=== PATIENT | female | born 1960 | race African-American/Black ===

== ENCOUNTER 2021-03-06 10:19 | Outpatient (REF) | payer OTHER, SELFPAY ==
[2021-03-06 10:53] LABS: Hematocrit 38.1 % (37-47); Hemoglobin 12.1 g/dl (12.0-16.0); Mean Corpuscular HGB Conc 31.8 g/dl (31.0-35.0); Mean Corpuscular Hemoglobin 26.7 pg (27.0-33.0); Mean Corpuscular Volume 84.1 fL (80-98); Mean Platelet Volume 11.6 fL (9.4-12.3); Platelet Count 307 X10*3/uL (160-400); Red Blood Count 4.53 X10*6/uL (4.20-5.50); Red Cell Distribution Width 15.9 % (11.0-16.0); White Blood Count 8.4 X10*3/uL (4.8-10.8)
[2021-03-06 11:11] LABS: D Dimer 219 NG/ML
[2021-03-06 11:34] LABS: Erythrocyte Sedimentation Rate 38 MM/HR (0-20)
[2021-03-06 11:37] LABS: Anion Gap 16 (12-20); Blood Urea Nitrogen 12 mg/dL (9-16); C Reactive Protein 1.71 mg/dL (< or = 0.50); Calcium 9.7 mg/dL (8.4-10.2); Carbon Dioxide 24 mmol/L (22-29); Chloride 107 mmol/L (96-108); Estimated Glomerular Filt Rate 49; Glucose Random 110 mg/dL (60-115); Potassium 3.7 mmol/L (3.3-5.1); Sodium 143 mmol/L (135-145)
== END 2021-03-06 10:20 | disposition home or self-care (01) ==
LOC: HO.LAB 10:19
PROVIDERS: Visit Provider Internal Medicine
DX: M79.89 Other specified soft tissue disorders (principal)
CPT/HCPCS: 36415; 80048; 85027; 85379; 85652; 86140

== ENCOUNTER 2021-05-28 08:44 | Outpatient (REF) | payer OTHER, SELFPAY ==
--- NOTE | ~2021-05-28 | MM_ITS ---
EXAMINATION: MM SCREENING DIGITAL BREAST TOMOSYNTHESIS, BILATERAL CLINICAL INFORMATION: Screening. Asymptomatic. The lifetime risk of breast cancer based on the Tyrer-Cuzick Model is 8%. COMPARISON: Mammography: 05/24/2020, 03/08/2019 TECHNIQUE: Digital breast tomosynthesis is performed in both the craniocaudal and mediolateral oblique views along with computer-aided detection (CAD). Synthesized 2D images are generated from the tomosynthesis. Additional views are provided: Bilateral CC x2, left MLO x2, right MLO. FINDINGS: The breasts are almost entirely fatty (ACR BI-RADS breast composition Category a). Background stromal and fibroglandular densities are stable. No developing density or interval mass or architectural abnormality. There are some round loosely grouped calcifications posterior inferior medial right breast corresponding to the skin. Neither breast shows suspicious calcifications. The axilla and skin contours are unremarkable. MM/MM tomosynthesis screening BI IMPRESSION: No mammographic evidence of malignancy. ASSESSMENT: BI-RADS 2: Benign RECOMMENDATION: Routine annual mammography screening. This patient's information was entered into a reminder system with a target due date for their next mammogram.
== END 2021-05-28 08:45 | disposition home or self-care (01) ==
LOC: HO.MAMMO 08:44
PROVIDERS: PCP Internal Medicine; Visit Provider Internal Medicine
DX: Z12.31 Encounter for screening mammogram for malignant neoplasm of breast (principal)
CPT/HCPCS: 77063; 77067

== ENCOUNTER 2022-05-29 08:35 | Outpatient (REF) | payer OTHER, SELFPAY ==
--- NOTE | ~2022-05-29 | MM_ITS ---
EXAMINATION: MM SCREENING DIGITAL BREAST TOMOSYNTHESIS, BILATERAL CLINICAL INFORMATION: Screening. Asymptomatic. The lifetime risk of breast cancer based on the Tyrer-Cuzick Model is 9%. COMPARISON: Mammography: 05/28/2021, 05/24/2020, 03/08/2019 TECHNIQUE: Digital breast tomosynthesis is performed in both the craniocaudal and mediolateral oblique views along with computer-aided detection (CAD). Synthesized 2D images are generated from the tomosynthesis. Additional bilateral CC and bilateral MLO views are provided. FINDINGS: The breasts are almost entirely fatty (ACR BI-RADS breast composition Category a). There are no significant masses, abnormal calcifications, or other abnormalities. Parenchymal pattern is similar to prior studies. There is no developing density or architectural abnormality. The axilla and skin contours are unremarkable. No significant changes. MM/MM tomosynthesis screening BI IMPRESSION: No mammographic evidence of malignancy. ASSESSMENT: BI-RADS 1: Negative RECOMMENDATION: Routine annual mammography screening. This patient's information was entered into a reminder system with a target due date for their next mammogram.
== END 2022-05-29 08:36 | disposition home or self-care (01) ==
LOC: HO.MAMMO 08:35
PROVIDERS: Visit Provider Internal Medicine
DX: Z12.31 Encounter for screening mammogram for malignant neoplasm of breast (principal)
CPT/HCPCS: 77063; 77067

== ENCOUNTER → 2022-12-22 07:42 | Outpatient (BNVA) | payer OTHER, SELFPAY | PROVIDERS: PCP Internal Medicine; Visit Provider Physician Assistant | DX: Z12.11 Encounter for screening for malignant neoplasm of colon (principal); K21.9 Gastro-esophageal reflux disease without esophagitis | CPT/HCPCS: 99202 ==

== ENCOUNTER 2023-02-10 13:07 | Outpatient (REF) | payer OTHER, SELFPAY ==
--- NOTE | ~2023-02-10 | US_ITS ---
EXAMINATION: US SOFT TISSUE HEAD/NECK CLINICAL INFORMATION: Lymphadenopathy, cervical spine. COMPARISON: None available. TECHNIQUE: Linear transducer grayscale and color Doppler examination of the right and left submandibular regions. FINDINGS: There are 2 right cervical lymph nodes adjacent to the right submandibular gland. These are normal in size measuring 6 x 8 x 5 mm and 3 x 8 x 4 mm. These have normal ultrasound morphology and normal hilar flow. There are 2 left cervical lymph nodes adjacent to the left submandibular gland. These are normal in size. There is an 8 x 7 x 6 mm lymph node with hypoechoic cortex and slightly irregular borders. There is a 7 x 9 x 6 mm lymph node that is diffusely hypoechoic with a slit-like hilum. US/US soft tiss head and/or neck IMPRESSION: Bilateral cervical lymphadenopathy adjacent to the submandibular glands. Lymph nodes are normal in size. Left submandibular lymph nodes have slightly abnormal ultrasound morphology. Ultrasound follow-up recommended. Right cervical lymph nodes are normal-appearing.
== END 2023-02-10 13:08 | disposition home or self-care (01) ==
LOC: HO.US 13:07
PROVIDERS: PCP Internal Medicine; Visit Provider Family Medicine
DX: R59.0 Localized enlarged lymph nodes (principal)
CPT/HCPCS: 76536

== ENCOUNTER 2023-04-30 09:40 | Outpatient (REF) | payer OTHER, SELFPAY ==
--- NOTE | ~2023-04-30 | XR_ITS ---
EXAMINATION: XR SINUSES CLINICAL INFORMATION: Sinus pressure. COMPARISON: None available. TECHNIQUE: 3 views of the sinuses were obtained. FINDINGS: Mild mucosal thickening is seen in the left maxillary sinus. The remainder the paranasal sinuses appear clear. No overt air-fluid levels. The osseous structures are unremarkable. The soft tissues are unremarkable. XR/XR sinus min 3V IMPRESSION: Mild mucosal thickening in the left maxillary sinus.
== END 2023-04-30 09:41 | disposition home or self-care (01) ==
LOC: HO.XRAY 09:40
PROVIDERS: PCP Internal Medicine; Visit Provider Otolaryngology
DX: J01.91 Acute recurrent sinusitis, unspecified (principal)
CPT/HCPCS: 70220

== ENCOUNTER 2023-06-01 08:20 | Outpatient (REF) | payer OTHER, SELFPAY ==
--- NOTE | ~2023-06-01 | MM_ITS ---
EXAMINATION: MM SCREENING DIGITAL BREAST TOMOSYNTHESIS, BILATERAL CLINICAL INFORMATION: Screening. Asymptomatic. The lifetime risk of breast cancer based on the Tyrer-Cuzick Model is 6.3%. COMPARISON: Mammography: This study is compared with prior exams dating back to 2018. TECHNIQUE: Digital breast tomosynthesis is performed in both the craniocaudal and mediolateral oblique views along with computer-aided detection (CAD). Synthesized 2D images are generated from the tomosynthesis. FINDINGS: The breasts are almost entirely fatty (ACR BI-RADS breast composition Category a). There are no significant masses, abnormal calcifications, or other abnormalities. MM/MM tomosynthesis screening BI IMPRESSION: No mammographic evidence of malignancy. ASSESSMENT: BI-RADS BI-RADS 1 - Negative RECOMMENDATION: Routine annual mammography screening. 1 year F/U This examination should not preclude the clinical evaluation of a suspicious palpable abnormality. This patient's information was entered into a reminder system with a target due date for their next mammogram.
== END 2023-06-01 08:21 | disposition home or self-care (01) ==
LOC: HO.MAMMO 08:20
PROVIDERS: PCP Internal Medicine; Visit Provider Internal Medicine
DX: Z12.31 Encounter for screening mammogram for malignant neoplasm of breast (principal)
CPT/HCPCS: 77063; 77067

== ENCOUNTER → 2023-06-01 09:00 | Outpatient (BNV) | payer OTHER, SELFPAY | PROVIDERS: PCP Internal Medicine; Visit Provider Radiology Diagnostic Radiology | DX: Z12.31 Encounter for screening mammogram for malignant neoplasm of breast (principal) | CPT/HCPCS: 77063; 77067 ==

== ENCOUNTER 2023-06-09 10:43 | Day surgery (SDC) | payer OTHER, SELFPAY ==
[2023-06-05 17:14] VITALS: BMI 54.9
--- NOTE | 2023-06-08 12:28 | HO.ANESPROP2 ---
Documented by User: Rochelle Wang NP 06/08/23 12:29 HPI - Anesthesia Eval Consult details Narrative: 63yo F for Upper Endoscopy and Colonoscopy PMFSH Active Problems Active Problems: All Active Problems (Updated 12/22/22 @ 08:23 by Diana Kennedy PA-C) Diabetes (Acute) Acid reflux (Acute) Encounter for screening colonoscopy (Acute) Past Medical History Medical History (Updated 06/09/23 @ 11:18 by Tonya Fuller, RN) HTN (hypertension) Hx of backache Hx of gout Hx of hyperlipidemia Kidney atrophy Family History Family History (Updated 12/22/22 @ 08:08 by Kristyn Porras) Brother Diabetes Son Diabetes Sister Diabetes Surgical History Surgical History (Updated 06/09/23 @ 11:14 by Tonya Fuller RN) History of back surgery History of sleeve gastrectomy Hx of colonoscopy Social History Social History (Updated 12/22/22 @ 08:04 by Kristyn Porras) Household Members: Family Alcohol intake: current Alcohol intake frequency: does not drink Patient Tobacco Use Status: Never used Tobacco Are you DNR?: No Advance Directives: No Advance Directives Information Provided: Yes Meds Allergies Allergy/AdvReac Type Severity Reaction Status Date / Time celecoxib [From Celebrex] Allergy Severe Hives Verified 12/22/22 08:25 levofloxacin [From Levaquin] Allergy Severe Hives Verified 12/22/22 08:25 morphine Allergy Severe Hives Verified 12/22/22 08:25 Home Medications Medication Instructions Recorded Confirmed Last Taken Type allopurinol 300 mg tablet 300 mg PO DAILY 12/22/22 Unknown History amlodipine 10 mg tablet 10 mg PO DAILY 12/22/22 Unknown History insulin aspar prot-insulin aspart 20 unit subcut DAILY 12/22/22 Unknown History 100 unit/mL (70-30) subcutaneous pen (Novolog Mix 70-30FlexPen U-100) insulin glargine 100 unit/mL 20 unit subcut DAILY 12/22/22 Unknown History subcutaneous solution (Lantus U-100 Insulin) metoprolol succinate 100 mg 100 mg PO DAILY 12/22/22 06/09/23 History tablet,extended release 24 hr omeprazole 20 mg capsule,delayed 20 mg PO DAILY 12/22/22 06/09/23 History release simvastatin 10 mg tablet 10 mg PO BEDTIME 12/22/22 Unknown History Exam Exam Date and Time: June 08, 2023 1228 Height,Weight and Vital Signs: Height 5 ft 2 in Weight 136.078 kg Assessment and Plan Assessment Anesthesia Assessment: Chart Reviewed Documented by User: Ankit Parker MD 06/09/23 11:41 [facility] Past Medical History Medical History (Updated 06/09/23 @ 11:18 by Tonya Fuller RN) HTN (hypertension) Hx of backache Hx of gout Hx of hyperlipidemia Kidney atrophy Family History Family History (Updated 12/22/22 @ 08:08 by Kristyn Porras) Brother Diabetes Son Diabetes Sister Diabetes Family history of problems with anesthesia: No Surgical History Surgical History (Updated 06/09/23 @ 11:14 by Tonya Fuller RN) History of back surgery History of sleeve gastrectomy Hx of colonoscopy History of Problems with Anesthesia: No Social History Social History (Updated 12/22/22 @ 08:04 by Kristyn Porras) Household Members: Family Alcohol intake: current Alcohol intake frequency: does not drink Patient Tobacco Use Status: Never used Tobacco Are you DNR?: No Advance Directives: No Advance Directives Information Provided: Yes Meds Allergies Allergy/AdvReac Type Severity Reaction Status Date / Time celecoxib [From Celebrex] Allergy Severe Hives Verified 12/22/22 08:25 levofloxacin [From Levaquin] Allergy Severe Hives Verified 12/22/22 08:25 morphine Allergy Severe Hives Verified 12/22/22 08:25 Home Medications Medication Instructions Recorded Confirmed Last Taken Type allopurinol 300 mg tablet 300 mg PO DAILY 12/22/22 Unknown History amlodipine 10 mg tablet 10 mg PO DAILY 12/22/22 Unknown History insulin aspar prot-insulin aspart 20 unit subcut DAILY 12/22/22 Unknown History 100 unit/mL (70-30) subcutaneous pen (Novolog Mix 70-30FlexPen U-100) insulin glargine 100 unit/mL 20 unit subcut DAILY 12/22/22 Unknown History subcutaneous solution (Lantus U-100 Insulin) metoprolol succinate 100 mg 100 mg PO DAILY 12/22/22 06/09/23 History tablet,extended release 24 hr omeprazole 20 mg capsule,delayed 20 mg PO DAILY 12/22/22 06/09/23 History release simvastatin 10 mg tablet 10 mg PO BEDTIME 12/22/22 Unknown History Exam Airway Mallampati Class: III TM Dist: <=3cm Neck ROM: Limited Heart: rrr Lungs: cta Assessment and Plan Assessment Anesthesia Assessment: Anesthesia Plan Discussed Final Anesthetic Review Family History of Problems with Anesthesia: No History of Problems with Anesthesia: No NPO: Yes ASA Class: IV Final Preanesthetic Review: No Changes in Pt Med Stat, Meds/Allgs Chart Reviewed, Consent Obtained/Reviewed and Anes Risks/Benef Reviewed Patient Risk: High Procedure Risk: Intermediate Anesthetic Plan Anesthetic Plan: MAC: and Agree w/ Assess. and Plan Disposition: Standard PACU
[2023-06-09 11:12] LABS: Glucose, Whole Blood 145 mg/dL (60-115)
[2023-06-09 11:24] VITALS: BP 129/69; PULSE 76; RESP 20; TEMP 36.8; O2SAT 99
--- NOTE | 2023-06-09 11:36 | MHC.SHP ---
Pre-Procedural Eval Section A Date of Service: 06/09/23 Section B Chief Complaint: Screening,GERD Details of Present Illness: PMH: solitary kidney Present Medications: see Short Stay Collaborative assessment History of Previous Operations: No relevant previous surgery Allergies: Allergies Allergy/AdvReac Type Severity Reaction Status Date / Time celecoxib [From Celebrex] Allergy Severe Hives Verified 12/22/22 08:25 levofloxacin [From Levaquin] Allergy Severe Hives Verified 12/22/22 08:25 morphine Allergy Severe Hives Verified 12/22/22 08:25 Review of Systems Review of Systems Comment: 10 point ROS negative Exam Exam Comment: Gen appear: No acute distress HEENT: no icterus Chest: No overt resp distress Abd: soft, nontender, nondistended Psych: Stable affect, answering questions appropriately Neuro: A/Ox3 noted to move all extremities spontaneously Ext: no peripheral edema Plan Diagnosis/Plan: Unchanged I have reviewed the history and physical and performed a pertinent physical examination on my patient. No changes have occurred unless specified. Time Spent With Patient Time: Total time managing care of this patient today ____ minutes.
--- NOTE | 2023-06-09 13:43 | P.OP_ITS ---
Operative Note Operative Note Date of Service: 06/09/23 Narrative: Procedure:?Esophagogastroduodenoscopy and colonoscopy Endoscopist:?Jana Jade MD Indication:?GERD, screening Anesthesia Provider:?Elmira Carbajal CRNA Anesthesia Type:?MAC Instrument:?Olympus GIF-H190, PCF-H190L EGD Procedure:?? The procedure, indications, preparation and potential complications were reviewed with the patient, who indicated understanding and gave written informed consent to proceed. A physical exam was performed. The endoscope was introduced through the mouth, and advanced to the second part of duodenum. The mucosa was carefully examined on slow withdrawal of the endoscope.? There were no immediate complications.? Patient tolerated the procedure well. EGD Findings:? * Esophagus:? Normal mucosa noted in the entire esophagus.? The Z-line is at 38 cm. ? A large hiatal hernia was noted with the diaphragmatic pinch at 45 cm. ? * Stomach:? Normal gastric mucosa. Retroflexion was performed in the fundus that showed Hill grade III hiatal hernia. Random cold forceps biopsies were taken to rule out H pylori. * Duodenum:?Erythema and edema the duodenal sweep was noted consistent with peptic duodenitis.? Cold forceps biopsies were taken for histology. Colonoscopy Procedure:? The patient was then turned for the colonoscopy. A digital rectal exam was performed which was normal.? A distal attachment cap was affixed to the tip of the scope and the colonoscope was then inserted through the anus and advanced through the colon to the cecum at 85 cm. Appendiceal orifice and ileocecal valve were identified. Mucosa was carefully examined under high definition white light as the instrument was slowly withdrawn in a retrograde panoramic fashion. Retroflexion was performed in rectum. The procedure was not difficult. There were no immediate obvious complications. The quality of the prep was BBPS: 2+2+2 = adequate Withdrawal time: 17 minutes Limitations: No limitation. Findings: Mucosa: Normal mucosa to cecum.? Protruding lesions: * A 2 cm subepithelial lesion was noted in the cecum close to ICV. This was unroofed with a cold snare revealed fatty tissue underneath compatible with a lipoma. cold forceps biopsies were taken for histology. * A sessile polyps size 7 mm was seen in the transverse colon. Cold snare polypectomy was performed. The polyp was completely removed and retrieved. * A sessile polyp of size 3 mm was noted in the descending colon. Cold snare polypectomy was performed. The polyp was completely removed and retrieved. * A sessile polyp of size 5 mm was noted in the sigmoid colon. Cold snare polypectomy was performed. Polyp was completely removed and retrieved. * Large internal hemorrhoids without stigmata of recent bleeding. Excavated lesions: * ?Moderate diverticulosis of the left colon with scattered diverticulosis up to ascending colon. Impression: 1. Normal esophageal mucosa 2. Hiatal hernia 4. Normal gastric mucosa 5. Duodenitis (biopsy) 6. Lipoma in cecum 7. Total of 3 polyps were removed from transverse, descending and sigmoid colon. 7. Diverticulosis 8. Internal hemorrhoids Recommendations:?? * Follow path results * Increase omeprazole 20mg BID x 4 weeks and then decrease back to 20mg once daily * Repeat colonoscopy in 3-5 years.
[2023-06-09 13:45] VITALS: BP 107/61; PULSE 67; RESP 16; TEMP 36.6; O2SAT 98
[2023-06-09 14:00] VITALS: BP 138/56; PULSE 61; RESP 16; TEMP 36.6; O2SAT 98
== END 2023-06-09 15:08 | disposition home or self-care (01) ==
PROVIDERS: PCP Internal Medicine; Visit Provider Internal Medicine
PROC: (CPT 45380; principal; 2023-06-09 13:10)
DX: Z12.11 Encounter for screening for malignant neoplasm of colon (principal); D12.3 Benign neoplasm of transverse colon; K63.5 Polyp of colon; K57.30 Diverticulosis of large intestine without perforation or abscess without bleeding; K64.8 Other hemorrhoids; K29.80 Duodenitis without bleeding; K44.9 Diaphragmatic hernia without obstruction or gangrene; K63.9 Disease of intestine, unspecified; K21.9 Gastro-esophageal reflux disease without esophagitis; E11.9 Type 2 diabetes mellitus without complications; I10 Essential (primary) hypertension; E78.5 Hyperlipidemia, unspecified; E66.01 Morbid (severe) obesity due to excess calories; Z68.43 Body mass index [BMI] 50.0-59.9, adult; Z79.4 Long term (current) use of insulin; Z79.899 Other long term (current) drug therapy
CPT/HCPCS: 45380; 45385; 43239; 82947; 88305; 88342

== ENCOUNTER → 2023-06-09 10:43 | Outpatient (BNV) | payer OTHER, SELFPAY | PROVIDERS: PCP Internal Medicine; Visit Provider Internal Medicine | DX: Z12.11 Encounter for screening for malignant neoplasm of colon (principal); D12.3 Benign neoplasm of transverse colon; K21.9 Gastro-esophageal reflux disease without esophagitis; K29.80 Duodenitis without bleeding | CPT/HCPCS: 43239; 45380; 45385 ==

== ENCOUNTER 2023-06-22 10:42 | Outpatient (AMB) | payer OTHER, SELFPAY ==
--- NOTE | 2023-06-22 10:52 | A.OFFVIS_ITS ---
Intake Vital Signs 06/22/23 10:55 Height 5 ft 2 in Weight 289 lb BMI 52.9 BP 120/60 Blood Pressure Location Lt brachial Position Sitting Pulse 87 Intake Visit Reasons: s/p egd/colon-Ziia Intake Note: Patient follow up for EGD/Colonoscopy results. Patient denies any GI issues. Payroll Representative Required: No Accompanied by: Self / Same As Patient Allergies celecoxib [From Celebrex] Allergy (Severe, Verified 06/22/23 10:51) Hives levofloxacin [From Levaquin] Allergy (Severe, Verified 06/22/23 10:51) Hives morphine Allergy (Severe, Verified 06/22/23 10:51) Hives HPI HPI Comments History of Present Illness Details A 63 y/o F- s/p Gastric sleeve - 2 years ago-follows up after recent EGD colonoscopy She tolerated procedure well-she has no GI complaints She has a good appetite trying to lose weight she has a normal bowel No nausea, vomiting, abdominal pain, hematemesis, fever or chills PFSH Medical History (Updated 06/22/23 @ 11:11 by Diana Kennedy PA-C) HTN (hypertension) Hx of backache Hx of gout Hx of hyperlipidemia Kidney atrophy Surgical History History of back surgery History of esophagogastroduodenoscopy (EGD) History of sleeve gastrectomy Hx of colonoscopy Family History Brother Diabetes Son Diabetes Sister Diabetes Social History Household Members: Family Alcohol intake: current Alcohol intake frequency: does not drink Patient Tobacco Use Status: Never used Tobacco Physical Exam Vital Signs: Last Vital Signs Pulse 87 06/22/23 10:55 BP 120/60 06/22/23 10:55 BMI result Body Mass Index 52.9 Results Reviewed Results Reviewed: Findings: Mucosa: Normal mucosa to cecum.? Protruding lesions: * A 2 cm subepithelial lesion was noted in the cecum close to ICV. This was unroofed with a cold snare revealed fatty tissue underneath compatible with a lipoma.? cold forceps biopsies were taken for histology. * A sessile polyps size 7 mm was seen in the transverse colon.? Cold snare polypectomy was performed.? The polyp was completely removed and retrieved.? * A sessile polyp of size 3 mm was noted in the descending colon.? Cold snare polypectomy was performed.? The polyp was completely removed and retrieved.? * A sessile polyp of size 5 mm was noted in the sigmoid colon.? Cold snare polypectomy was performed.? Polyp was completely removed and retrieved. * Large internal hemorrhoids without stigmata of recent bleeding.Excavated lesions: * ?Moderate diverticulosis of the left colon with scattered diverticulosis up to ascending colon. Impression: 1. Normal esophageal mucosa 2. Hiatal hernia 4. Normal gastric mucosa 5. Duodenitis (biopsy) 6. Lipoma in cecum 7. Total of 3 polyps were removed from transverse, descending and sigmoid colon. 7. Diverticulosis 8. Internal hemorrhoids Recommendations:?? * Follow path results * Increase omeprazole 20mg BID x 4 weeks and then decrease back to 20mg once daily * Repeat colonoscopy in 3-5 years. Name:?Yessy Miller Age/Sex: 63/F Attending: Jana Jade MD : 1960 Submitted by: Jana Jade MD Copies to: Vikash Isabel MD MR #: [id number] ? Status: [facility] Collected: 06/09/23 Location: [facility] Received: 06/09/23 Diagnosis A.? Duodenum, biopsy:? Carmina gland hyperplasia; otherwise duodenal mucosa within normal limits. B.? Stomach, random, biopsy:? Antral-type and oxyntic mucosa with mild chronic inactive inflammation; no Helicobacter organisms seen. C.? Colon, transverse, polypectomy:? Fragments of tubular adenoma; negative for high-grade dysplasia or carcinoma. D.? Cecum, near ICV submucosal epithelial lesion, biopsy:? Small fragment of normal appearing adipose tissue.? See comment. E.? Colon, descending, polypectomy:? Hyperplastic mucosal polyp. F.? Colon, sigmoid, polypectomy:? Hyperplastic mucosal polyp. COMMENT:? Findings in part D are consistent with a submucosal lipoma in the proper clinical context. Clinical History Pre-Op Dx:? Screening, GERD Post-Op Dx: Duodenitis,hiatal hernia, diverticulosis, polyps, hemorrhoids Microscopic Description A-F.? Microscopic sections reviewed.? Immunostain for H. pylori is non-reactive (B). Material Received A. Duodenal bx's to r/o peptic duodenitis B. Random gastric bx's C. Transverse colon polyp D. Submucosal epithelial lesion bx E. Descending colon polyp F. Sigmoid colon polyp Gross Description Assessment & Plan Assessment & Plan (1) Tubular adenoma: Code(s): D36.9 - Benign neoplasm, unspecified site (2) Duodenitis: Code(s): K29.80 - Duodenitis without bleeding Plan: Omeprazole 20 mg b.i.d.x4 weeks (3) Hiatal hernia: Code(s): K44.9 - Diaphragmatic hernia without obstruction or gangrene Plan: Review plan of care Report any increase sx (4) Diverticulosis of colon: Code(s): K57.30 - Diverticulosis of large intestine without perforation or abscess without bleeding Plan: ER protocol (5) Hemorrhoids: Code(s): K64.9 - Unspecified hemorrhoids Plan: High-fiber diet avoids Plan Review procedure report, pathology and recommendations Medications: Changed From omeprazole 20 mg PO DAILY To omeprazole 20 mg PO BID 30 days 60 caps 1RF Patient Instructions: Review procedure report pathology Tubular adenoma, 2 hyperplastic polyps, repeat asymptomatic colonoscopy 5 years Hiatal hernia Of continued weight loss Eats smaller portions Head of bed 45 degrees Remain upright 2-3 hours after eating especially your evening meal She will increase omeprazole 20 mg to, b.i.d. for 4 weeks-she then may resume omeprazole 20 mg daily Reviewed reflux precautions-culprits ETC Reviewed diverticulosis/diverticulitis ER protocol Maintain high-fiber diet, foods to avoid, avoid straining with hemorrhoids Surgical intervention for hemorrhoids as agree-at this time declines Encouraged to call with questions or concerns Appreciate the opportunity assist in the care the patient Coding Level of Care Code Est Pt Level 3 (03310) Diagnoses Tubular adenoma D36.9 Duodenitis K29.80 Hiatal hernia K44.9 Diverticulosis of colon K57.30 Hemorrhoids K64.9 Time Spent (min) 30
[2023-06-22 10:55] VITALS: BP 120/60; PULSE 87; BMI 52.9
== END 2023-06-22 12:01 | disposition home or self-care (01) ==
PROVIDERS: PCP Internal Medicine; Visit Provider Physician Assistant
DX: D36.9 Benign neoplasm, unspecified site (principal); K29.80 Duodenitis without bleeding; K44.9 Diaphragmatic hernia without obstruction or gangrene; K57.30 Diverticulosis of large intestine without perforation or abscess without bleeding; K64.9 Unspecified hemorrhoids
CPT/HCPCS: 99213

== ENCOUNTER → 2023-06-22 10:42 | Outpatient (BNVA) | payer OTHER, SELFPAY | PROVIDERS: PCP Internal Medicine; Visit Provider Physician Assistant | DX: K57.30 Diverticulosis of large intestine without perforation or abscess without bleeding (principal); K29.80 Duodenitis without bleeding; K44.9 Diaphragmatic hernia without obstruction or gangrene; K64.9 Unspecified hemorrhoids; D36.9 Benign neoplasm, unspecified site; Z68.43 Body mass index [BMI] 50.0-59.9, adult; Z90.3 Acquired absence of stomach [part of] | CPT/HCPCS: 99212 ==

== ENCOUNTER 2023-12-07 11:39 | Outpatient (REF) | payer OTHER, SELFPAY ==
[2023-12-07 14:12] LABS: MANUAL DIFF FLAG NO
[2023-12-07 14:20] LABS: Basophils Absolute Auto 0.1 X10*3/uL (0.0-0.2); Basophils Percent Auto 0.8 % (0-2); Eosinophils Absolute Auto 0.2 X10*3/uL (0.0-0.4); Eosinophils Percent Auto 2.7 % (0-4); Hematocrit 43.1 % (37.0-47.0); Hemoglobin 13.9 g/dl (12.0-16.0); Imm Gran Abs Auto 0.01 X10*3/uL (0.00-0.03); Imm Gran Pct Auto 0.1 % (0.0-0.4); Lymphocytes Absolute Auto 2.5 X10*3/uL (1.2-4.9); Mean Corpuscular HGB Conc 32.3 g/dl (31.0-35.0); Mean Corpuscular Hemoglobin 27.8 pg (27.0-33.0); Mean Corpuscular Volume 86.2 fL (80.0-98.0); Monocytes Absolute Auto 0.4 X10*3/uL (0.1-1.2); Monocytes Percent Auto 5.7 % (2-11); Neutrophils Absolute Auto 3.9 x10*3/uL (2.0-8.3); Neutrophils Percent Auto 54.7 % (45-73); Platelet Count 252 X10*3/uL (160-400); Red Cell Distribution Width 15.2 % (11.0-16.0); White Blood Count 7.1 X10*3/uL (4.8-10.8)
[2023-12-07 15:45] LABS: Alanine Aminotransferase 16 U/L (0-31); Albumin Level 4.3 g/dL (3.5-5.0); Alkaline Phosphatase 100 U/L (39-117); Anion Gap 15 (12-20); Aspartate Amino Transferase 14 U/L (5-31); Bilirubin Total 0.4 mg/dL (0.0-1.0); Blood Urea Nitrogen 21 mg/dL (9-16); Calcium 10.7 mg/dL (8.4-10.2); Carbon Dioxide 26 mmol/L (22-29); Chloride 108 mmol/L (96-108); Cholesterol 142 mg/dL (<200); Estimated Glomerular Filt Rate 47; Glucose Random 128 mg/dL (60-115); HDL Cholesterol 40 mg/dL (>40); LDL Cholesterol Calculated 76 mg/dL (<100); Potassium 3.8 mmol/L (3.3-5.1); Sodium 145 mmol/L (135-145); Total Protein 7.7 g/dL (6.5-8.0); Triglycerides 134 mg/dL (<150)
[2023-12-07 15:46] LABS: TSH reflex Free T4 0.49 uIU/mL (0.32-4.0)
== END 2023-12-07 11:40 | disposition home or self-care (01) ==
LOC: HO.CHCLDS 11:39
PROVIDERS: Visit Provider Internal Medicine
DX: I10 Essential (primary) hypertension (principal)
CPT/HCPCS: 36415; 80053; 80061; 84443; 85025

== ENCOUNTER 2024-03-07 09:37 | Outpatient (REF) | payer OTHER, SELFPAY ==
[2024-03-08 04:15] LABS: ~HepC Num1 0.07 S/CO (0.00-0.79); ~Hepatitis C Antibody Nonreactive (Nonreactive)
== END 2024-03-07 09:38 | disposition home or self-care (01) ==
LOC: HO.CHCLDS 09:37
PROVIDERS: Visit Provider Internal Medicine
DX: I10 Essential (primary) hypertension (principal); E11.9 Type 2 diabetes mellitus without complications; E66.01 Morbid (severe) obesity due to excess calories; E78.00 Pure hypercholesterolemia, unspecified; Z79.4 Long term (current) use of insulin
CPT/HCPCS: 36415; 86803

== ENCOUNTER 2024-06-02 08:19 | Outpatient (REF) | payer OTHER, SELFPAY | END 2024-06-02 08:20 | disposition home or self-care (01) | LOC: HO.MAMMO 08:19 | PROVIDERS: PCP Internal Medicine; Visit Provider Internal Medicine | DX: Z12.31 Encounter for screening mammogram for malignant neoplasm of breast (principal) | CPT/HCPCS: 77063; 77067 ==

== ENCOUNTER → 2024-06-02 09:00 | Outpatient (BNV) | payer OTHER, SELFPAY | PROVIDERS: PCP Internal Medicine; Visit Provider Radiology Diagnostic Radiology | DX: Z12.31 Encounter for screening mammogram for malignant neoplasm of breast (principal) | CPT/HCPCS: 77063; 77067 ==

== ENCOUNTER 2024-12-07 10:08 | Outpatient (REF) | payer OTHER, SELFPAY ==
--- OUTSIDE RECORDS SUMMARY | 2024-12-07 11:07 | XMS_ITS | Encounter Summary ---
Author Organization [employer] Address [address] [place] [id number] Care Team Providers Care Estate Attorney Name Role Phone Vikash Isabel MD Primary Care Provider [phone] Encounter Details Date Type Department Care Team ([facility] st Contact Info) Description 01/09/2023 Orders Only [facility] [address] [place] [address] Archana Pollard LPN Social History Tobacco Use Types Packs/Day Years Used Date Smoking Tobacco: Never Assessed Comments Unknown Sex and Gender Information Value Date Recorded Sex Assigned at Female 09/15/2022 10:22 AM EDT Legal Sex Female 10:22 AM EDT Gender Identity Female 09/15/2022 10:22 AM EDT Sexual Orientation Straight 09/15/2022 10 :22 AM EDT documented as of this encounter Plan of Treatment Not on file documented as of this encounter Visit Diagnoses Not on filedocumented in this encounter Care Teams Estate Attorney Relationship Specialty Start Date End Date Vikash Isabel MD [address] [place] [address] PCP - General Internal Medicine 11/16/18 documented as of this encounter
--- OUTSIDE RECORDS SUMMARY | 2024-12-07 11:07 | XMS_ITS | Encounter Summary ---
Author Organization [employer] Address [address] [place] [address] [place] [address] Care Team Providers Care Paper Cup Handle Machine Operator Name Role Phone Vikash Isabel MD Primary Care Provider [phone] Reason for Visit * Reason Comments Med Refill Encounter Details Date Type Department Care Team ([facility] st Contact Info) Description 12/05/2024 Refill [facility] [address] [place], [place] [phone] Vikash Isabel MD [address] [place] [address] Vitamin deficiency Social History Tobacco Use Types Packs/Day Years Used Date Smoking Tobacco: Former Cigarettes Q uit: 2005 Passive Smoke Exposure: Never Smokeless Tobacco: Never Alcohol Use Standard Drinks/Week Comments Never 0 (1 standard drink = 0.6 oz pur e alcohol) Depression Answer Date Recorded Patient Health Questionnaire-9 Score 0 12/07/2024 Patient Health Questionnaire-9 Score 0 12/07/2024 Last PHQ-9: Questionnaire Data Not on file 0 12/07/2024 Housing Stability Answer Date Recorded What is your housing situation today? I have viral griffin 05/31/[address] you li ve. Do you have problems with any of the following? None of the above 05/31/2024 Food Insecurity Answer Date Recorded Within the past 12 months, y ou worried that your food would run out before you got money to buy more: Never True 05/31/2024 Within the past 12 months,th e food you bought just didn't last and you didn't have enough money to get more: Never True Transportation Answer Date Recorded In the past 12 months, has l ack of transportation kept you from medical appts, meetings, work or from getting things needed for daily living? No 05/31/2024 Utilities Answer Date Recorded In the past 12 months, has t he electric, gas, oil or water company threatened to shut off services in your home? No 05/31/2024 Depression Answer Date Recorded Patient Health Questionnaire-2 Score 0 12/07/2024 Internet Access Answer Date Recorded Internet Access Q1 Yes 07/18/2024 Internet Access Q2 Not on file 07/18/2024 Comments Unknown Sex and Gender Information Value Date Recorded Sex Assigned at Female 09/15/2022 10:22 AM EDT Legal Sex Female 10:22 AM EDT Gender Identity Female 09/15/2022 10:22 AM EDT Sexual Orientation Straight 09/15/2022 10 :22 AM EDT documented as of this encounter Plan of Treatment Not on file documented as of this encounter Visit Diagnoses Diagnosis Vitamin deficiency Unspecified vitamin deficiency documented in this encounter Additional Health Concerns Assessment Noted Time PHQ-9 Depression Total Score: 0 02/27/20 23 2:53 PM EDT documented as of this encounter Care Teams Paper Cup Handle Machine Operator Relationship Specialty Start Date End Date Vikash Isabel MD [address] [place] [id number] PCP - General Internal Medicine 11/16/18 documented as of this encounter
--- OUTSIDE RECORDS SUMMARY | 2024-12-07 11:07 | XMS_ITS | Encounter Summary ---
Author Organization [employer] Address [address] [facility] [address] [place] [address] Care Team Providers Care Solution Advisor Name Role Phone Vikash Isabel MD Primary Care Provider [phone] Encounter Details Date Type Department Care Team (Latest Contact Info) Description 12/07/2024 Travel Social History Tobacco Use Types Packs/Day Years [...] the past 12 months, has t he [employer], gas, oil or water company threatened to [...] Diagnoses Not on filedocumented in this encounter Additional Health Concerns Assessment Noted Time PHQ-9 Depression Total Score: 0 12/07/19 25 9:41 AM EST documented as of this encounter Care Teams Solution Advisor Relationship Specialty Start Date End Date Vikash Isabel MD [address] [place] [id number] PCP - General Internal Medicine 11/16/18 documented as of this encounter
--- OUTSIDE RECORDS SUMMARY | 2024-12-07 11:07 | XMS_ITS | Clinical Summary ---
Author Organization [facility] Address [address] [place] [address] Phone Care Team Providers Care Car Clerk Pullman Name Role Phone Vikash Isabel MD Primary Care Provider [phone] Allergies Active Allergy Reactions Criticality Noted Date Comments Cephalexin Rash 08/18/2024 Levofloxacin Rash 08/18/2024 Morphine Sulfate Rash 03/02/2006 Medications Medication Sig Dispensed Refills Start Date End Date Status empagliflozin (Jardiance) 10 mg tablet Take by mouth. Active ONDANSETRON HCL, BULK, MISC Take 4 mg by mouth every 8 hours as needed (nausea). 05/13/2021 Active amlodipine besylate (AMLODIPINE ORAL) Take 10 mg by mouth daily. Active wheat dextrin (Benefiber Clear SF, dextrin,) 3 gram/3.5 gram powder in packet Take 4 g by mouth daily. 05/13/2021 Active omeprazole OTC (PriLOSEC OTC) 20 mg EC tablet 1 PO QD 04/24/2010 Active CHOLECALCIFEROL, VITAMIN D3, ORAL Take 1,000 Units by mouth daily. Active lisinopril-hydro CHLOROthiazide (PRINZIDE,ZESTOR ETIC) 20-12.5 mg per tablet 1 qd 04/24/2010 Active simvastatin (ZOCOR) 10 mg tablet 1 TABLET AT BEDTIME 04/24/2010 Activ e metoprolol succinate (TOPROL-XL) 100 mg 24 hr tablet 1 TABLET DAILY 04/24/2010 Activ e aspirin 81 mg EC tablet 1 TABLET DAILY Active Wegovy 1 mg/0.5 mL injection penIndications:T ype 2 diabetes mellitus with cataract (CMS/HCC),Obesit y, Class III, BMI 40-49.9 (morbid obesity) (CMS/[facility]) INJECT 1 MG SUBCUTANEOUSLY ONCE A WEEK 4 mL 12/06/2024 Active semaglutide (Wegovy) 1 mg/0.5 mL injection penIndications:T ype 2 diabetes mellitus with cataract ([facility]),Obesit y, Class III, BMI 40-49.9 (morbid obesity) ([facility]) Inject 1 mg under the skin every 7 (seven) days. 4 mL 09/27/2024 5 Discontinued Active Problems Problem Noted Date Diagnosed Date Type 2 diabetes mellitus with cataract 4 Class 3 severe obesity with body mass index (BMI) of 40.0 to 44.9 in adult 08/18/2024 Cataract 05/10/2021 Esophageal reflux 04/13/2007 Pure hypercholesterolemia 01/28/2007 Renal artery stenosis 04/25/2006 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 Overview (08/18/2024): right, total vision loss negative echo, normal carotid usn, negative for clotting abnormality Displacement of lumbar inter 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 11/06/2005 Overview (08/18/2024): laminectomy Sciatica 11/06/2005 Pyelonephritis 06/29/2004 Overview (08/18/2024): severe, left, sepsis and renal tubular acidosis 06/19 subsequent kidney atrophy Pneumonia 06/19/2004 Hypertension 02/12/2001 Encounters Date Type Department Care Team Description 10/18/2024 9:30 AM EST Nutrition Bariatric Surgery - [address] [address] Class 3 severe obesity with body mass index (BMI) of 40.0 to 44.9 in adult, unspecified obesity type, unspecified whether serious comorbidity present ([facility]) (Primary Dx) 09/27/2024 10:45 AM EST Office Visit Bariatric Surgery [address] [address] Sugey Hughes MD Type 2 diabetes mellitus with cataract ([facility]) (Primary Dx); Obesity, Class III, BMI 40-49.9 (morbid obesity) ([facility]) from Last 3 Months Immunizations Name Administration Dates Next Due Td Tetanus diptheria (Tdvax) 7yo and older 02/15 Tdap Tetanus diptheria acell ular pertussis (Boostrix; Adacel) 7yo and older 12/13/2008 Surgical History Surgery Date Site/Laterality Comments OTHER SURGICAL HISTORY 01/11/1999 PROCEDURE: CA HENDRICKSON FACETECTOMY & FORAMOTOMY 1 VRT SGM LUMBAR; COMMENT: laminectomy L5-S1 OTHER SURGICAL HISTORY 10/16/2009 PROCEDURE: MAMMOGRAM COLONOSCOPY 05/16/2009 PROCEDURE: CA COLONOSCOPY STOMA DX INCLUDING COLLJ SPEC SPX; COMMENT: normal, repeat 10 years TONSILLECTOMY PROCEDURE: HISTORICAL TONSILLECTOMY CATARACT EXTRACTION 2019 PROCEDURE: HISTORICAL CATARACT REMOVAL ADENOIDECTOMY PROCEDURE: HISTORICAL ADENOIDECTOMY Medical History Medical History Date Comments Pyelonephritis, unspecified 06/29/2004 DX:P yelonephritis, unspecified Displacement of lumbar inter 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 12/03/1998 DX:Displacement of lumbar inter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 Sciatica 05/13/1999 DX:Sciatica Retinal vascular occlusion, unspecified 03/02/2006 DX:Retinal vascular occlusio n, unspecified; COMMENT: right, total vision loss Pure hypercholesterolemia 01/28/2007 DX:Pur e hypercholesterolemia Esophageal reflux 04/13/2007 DX:Esophageal reflux Special screening for malign ant neoplasms, colon 06/11/2009 DX:Special screening for mal ignant neoplasms, colon Essential hypertension, benign 02/12/2001 D X:Essential hypertension, benign Pneumonia, organism unspecified(486) 06/19/2004 DX:Pneumonia, organism unspecified(486) Morbid obesity with BMI of 5 0.0-59.9, adult ([facility]) 05/10/2021 DX:Morbid obesity with BMI o f 50.0-59.9, adult ([facility]) Type 2 diabetes mellitus wit h cataract ([facility]) DX:Type 2 diabetes mellitus with cataract ([facility]) Cataract 05/10/2021 DX:Cataract Family History Medical History Relation Name Comments Heart attack Brother Diabetes Stroke Father in his 50' s Stroke Mother Stroke Other 2 brothers Stroke Sister CAD Relation Name Status Comments Brother Father Mother Other Sister Social History Tobacco Use Types Packs/Day Years Used Date Smoking Tobacco: Former Smokeless Tobacco: Never Alcohol Use Standard Drinks/Week Comments No 0 (1 standard drink = 0.6 oz pur e alcohol) Sex and Gender Information Value Date Recorded Sex Assigned at Not on file Gender Identity Not on file Sexual Orientation Not on file Job Start Date Occupation Industry Not on file Not on file Not on file Obstetrics History Last Filed Vital Signs Vital Sign Reading Time Taken Comments Blood Pressure 124/74 09/27/2024 11:41 AM EST Pulse 53 09/27/2024 11:41 AM EST Temperature 36.7 ??C (98 ??F) 09/27/2024 11:41 AM EST Respiratory Rate - - Oxygen Saturation - - Inhaled Oxygen Concentration - - Weight 125 kg (275 lb) 10/18/2024 9:35 AM EST Height 170.2 cm (5' 7 ) 09/27/2024 11:41 AM EST Body Mass Index 43.07 09/27/2024 11:41 AM EST Plan of Treatment Upcoming Encounters Date Type Department Care Team (Late st Contact Info) Description 12/29/2024 9:30 AM EST Office Visit Bariatric Surgery [facility] [address] [phone] Sugey Hughes MD [address] [address] 01/10/2025 9:00 AM EST Telemedicine Bariatric Surgery [facility] [address] [phone] [address] Health Maintenance Due Date Last Done Comments Breast Cancer Screening 1959 Diabetes: Annual Foot Exam 1969 Diabetes: Annual Retina Eye Exam 1969 Cervical Cancer Screening: Pap Smear 03/14/2014 03/14/2011 RSV Immunization Patients 60+ Years Old (1 - Risk 60-74 years 1-dose series) 2019 Colorectal Cancer Screening: Colonoscopy 10/25/2022 Hepatitis C Screening 10/25/2022 Medicare Annual Wellness Visit 10/25/2022 Osteoporosis Screening (Bone Density Screening) 10/25/2022 Social Influencers of Health Screening 10/25/2022 Diabetes: Annual Urine Albumin-Creatinine Ratio (uACR) 10/29/2022 12/13/2008 Diabetes: Annual GFR (Glomerular Filtration Rate) 03/31/2023 03/31/2022 Hypertension/CHF/CAD Annual BMP Blood Test 03/31/2023 03/31/2022 Falls Risk Assessment 2024 Depression Screening 02/27/2024 02/26/2023 Diabetes: Blood Sugar Control Test (HGBA1C) 09/06/2024 03/07/2024, 07/02/2020, 06/14/2018 DTaP,Tdap,and Td Vaccines (4 - Td or Tdap) 11/07/2026 11/07/2016, 12/13/2008, 02/15/1999 Cholesterol Screening (Lipid Panel) 12/07/2028 12/07/2023, 07/02/2020 Pneumococcal Vaccine: 65+ Years Completed 08/18/2022 Pneumococcal Vaccine: Pediatrics (0 to 5 Years) and At-Risk Patients (6 to 64 Years) Completed 08/18/2022 Zoster Vaccines Completed 03/10/2023, 09/23/2022 COVID-19 Vaccine Completed 09/23/2024, , 04/08/2021, Additional history exists Influenza Vaccine Completed 09/23/2024, , 09/21/2019, Additional history exists HIB Vaccines Aged Out No longer eligi ble based on patient's age to complete this topic HPV Vaccines Aged Out No longer eligi ble based on patient's age to complete this topic Hepatitis A Vaccines Aged Out No long er eligible based on patient's age to complete this topic Hepatitis B Vaccines Aged Out No long er eligible based on patient's age to complete this topic IPV Vaccines Aged Out No longer eligi ble based on patient's age to complete this topic MMR Vaccines Aged Out No longer eligi ble based on patient's age to complete this topic Meningococcal ACWY Vaccine Aged Out N o longer eligible based on patient's age to complete this topic RSV Immunization Patients Under 20 months Aged Out No longer eligible based on patient's age to complete this topic Varicella Vaccines Aged Out No longer eligible based on patient's age to complete this topic Procedures Procedure Name Priority Date/Time Associated Diagnosis Comments HM ANNUAL BMP BLOOD TEST Routine 03/31/2022 HEMOGLOBIN A1C Routine 07/02/2020 LIPID PANEL Routine 07/02/2020 PAP SMEAR Routine 03/14/2011 URINE ALBUMIN CREATININE RATIO Routine 12/13/2008 from Last 3 Months or Most Recently Relevant to Health Maintenance Results * Annual BMP Blood Test (03/31/2022) Pathologist [facility] Annual BMP Blood Test Abstracted Historical Provider MD REGIS HOPPER E * Hemoglobin A1c (07/02/2020) Pathologist [facility] Hemoglobin A1C 6.3 6.5 % Blood Venous blood specimen / Unknown Historical Provider LAB BLOOD ORDERAB LES * Lipid panel (07/02/2020) Pathologist [facility] LDL/HDL Ratio 3 0 - 4 Triglycerides 148 0 - 150 mg/dL Cholesterol 134 0 - 200 mg/dL HDL 41 40 mg/dL LDL Cholesterol 64 0 - 100 mg/dL Blood Venous blood specimen / Unknown Historical Provider LAB BLOOD ORDERAB LES * Pap Smear (03/14/2011) Pathologist [facility] Pap smear Negative, Abstracted Historical Provider MD REGIS HOPPER E * Urine Albumin Creatinine Ratio (12/13/2008) Pathologist [facility] Urine Albumin Creatinine Ratio Abstracted Historical Provider MD REGIS Gerber from Last 3 Months or Most Recently Relevant to Health Maintenance Care Teams Car Clerk Pullman Relationship Specialty Start Date End Date Vikash Isabel MD [address] [place] PCP - General Internal Medicine 07/30/21
--- OUTSIDE RECORDS SUMMARY | 2024-12-07 11:07 | XMS_ITS | Encounter Summary ---
Author Organization [facility] Address [address] [place] [address] Phone Care Team Providers Care Hearing Aid Technician Name Role Phone Vikash Isabel MD Primary Care Provider [phone] Encounter Details Date Type Department Care Team (Late st Contact Info) Description 11/29/2024 9:30 AM EST Office Visit [facility] [address] [place] [address] Vinicius Simons MD [address] [place] [address] [place] [address] Stage 3a chronic kidney disease (HCC) (Primary Dx) Social History Tobacco Use Types Packs/Day Years Used Date Smoking Tobacco: Former Smokeless Tobacco: Former Alcohol Use Standard Drinks/Week Comments Yes 0 (1 standard drink = 0.6 oz pure alcohol) Alcoholic Drinks/day: Occasional social drink Comments Unknown Sex and Gender Information Value Date Recorded Sex Assigned at Not on file Legal Sex Female 4:34 PM EST Gender Identity Not on file Sexual Orientation Not on file documented as of this encounter Plan of Treatment Upcoming Encounters Date Type Department Care Team (Late st Contact Info) Description 02/28/2025 9:40 AM EDT Office Visit [facility] [address] [place] [address] Vinicius Simons MD [address] [facility] [place] [address] documented as of this encounter Visit Diagnoses Diagnosis Stage 3a chronic kidney disease (HCC)- Primary documented in this encounter Care Teams Hearing Aid Technician Relationship Specialty Start Date End Date Vikash Isabel MD [address] [place] [address] PCP - General Internal Medicine 12/03/22 documented as of this encounter
--- OUTSIDE RECORDS SUMMARY | 2024-12-07 11:07 | XMS_ITS | Clinical Summary ---
Author Organization [facility], Address [address] [place] [address] [place] [address] Phone Care Team Providers Care Curator Of Education Name Role Phone Vikash Isabel MD Primary Care Provider [phone] Allergies Active Allergy Reactions Criticality Noted Date Comments Cephalexin Rash Low 01/13/2020 Cephalosporins Levofloxacin Rash Low 01/13/2020 Morphine Other (see comments) 01/13/2020 Medications omeprazole (PriLOSEC) [address] capsule Take 1 capsule by mouth 1 (one) time each day Active cholecalcifero l (VITAMIN D-3) 25 MCG (1000 UT) tablet Take 1 tablet by mouth 1 (one) time each day Active loratadine (CLARITIN) 10 MG tablet Take 1 tablet by mouth 1 (one) time each day Active traMADol (ULTRAM) 50 MG tablet Take 50 mg by mouth if needed Active NovoLOG FLEXPEN 100 UNIT/ML injection INJECT 12 UNITS SUBCUTANEOUSLY BEFORE EACH MEAL 0 Active Lantus SoloStar 100 UNIT/ML injection INJECT 50 UNITS SUBCUTANEOUSLY EVERY DAY AT BEDTIME 0 Active EQ Aspirin Adult Low Dose 81 MG EC tablet Take 1 tablet by mouth once daily 90 tablet 3 1 Active B-D ULTRAFINE III SHORT PEN 31G X 8 MM misc 1 Active acetaminophen (Tylenol) 325 MG tablet Take 1 tablet by mouth Active acetaminophen (TYLENOL) 500 MG tablet Take 2 tablets (1,000 mg total) by mouth every 8 (eight) hours if needed for mild pain 60 tablet 3 2 Active simvastatin (ZOCOR) 20 MG tablet Take 20 mg by mouth 1 (one) time each day in the evening 2 Active Blood Glucose Monitoring Suppl (ReliOn Confirm Glucose Monitor) w/Device kit 1 Units 4 times a day 1 kit 1 3 Active fexofenadine (JACKIE) 60 MG tablet 3 Active Jardiance 10 MG tablet 3 Active Dextrose, Diabetic Use, (Glucose) 1 g chewable tablet take 1 Tablet by Oral route as needed for hypoglycemia ( BG < 70 mg/dl) 3 Active colchicine 0.6 MG tablet Take 0.6 mg by mouth in the morning. 3 Active allopurinol (ZYLOPRIM) 300 MG tablet Take 1 tablet (300 mg total) by mouth 1 (one) time each day 30 tablet 5 3 Active Blood Glucose Monitoring Suppl (FreeStyle Lite) w/Device kit 1 Device in the morning and 1 Device in the evening. Use glucometer to check blood sugars twice daily dx code e11.21. 1 kit 3 Active Wegovy 0.25 MG/0.5ML solution auto-injector INJECT 0.25 MG SUBCUTANEOUSLY ONCE A WEEK 4 Active Empagliflozin (Jardiance) 10 MG tablet Take 10 mg by mouth every morning 4 Active amLODIPine (NORVASC) 10 MG tablet Take 1 tablet (10 mg total) by mouth 1 (one) time each day 90 tablet 3 4 Active metoprolol succinate XL (TOPROL-XL) 100 MG 24 hr tablet Take 1 tablet (100 mg total) by mouth 1 (one) time each day Do not crush or chew. 90 tablet 3 4 Active lisinopril-hyd roCHLOROthiazi de (PRINZIDE,ZEST ORETIC) 20-12.5 MG per tablet Take 1 tablet by mouth 1 (one) time each day 90 tablet 3 4 Active Blood Pressure Monitoring (Blood Pressure Kit) device 1 kit 1 (one) time each day Take blood pressure daily dx code I10 1 each 4 Active Active Problems Problem Noted Date Diagnosed Date Primary hyperparathyroidism 11/27/2021 Acute nontraumatic kidney injury 11/27/2021 Stage 3a chronic kidney disease 01/13/2020 Essential hypertension 01/13/2020 Severe obesity 11/30/2018 Type 2 diabetes mellitus 09/21/2018 Chronic pain syndrome 11/18/2017 Pure hypercholesterolemia 01/28/2007 Renal artery stenosis 04/25/2006 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 Overview (06/02/2022): right, total vision loss negative echo, normal carotid usn, negative for clotting abnormality 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 Encounters Date Type Department Care Team Description 11/29/2024 9:30 AM EST Office Visit [facility], [address] [place] [address] Vinicius Simons MD Stage 3a chronic kidney disease (HCC) (Primary Dx) from Last 3 Months Immunizations Name Administration Dates Next Due Influenza, Quadrivalent, With Preservative 09/21,09/21/2018 Influenza, Recombinant, Quadrivalent, Pf 022 Pneumococcal Conjugate Pcv 20 08/18/2022 Shingrix 09/23/2022 Td 02/15/1999 Tdap 11/07/2016,12/13/2008 Family History Medical History Relation Comments Heart disease Father [place] between the a ges of 50 to 60 Stroke Father Hypertension Mother Heart disease Sibling 1 Brother [place] betwe en the ages of 50 to 60 Hypertension Sibling 2 Brother/Sister Cancer Sibling 3 Brother-Pancreat ic Diabetes Sibling 4 Brother/Sister Relation Status Comments Father Mother Alive Sibling 1 Sibling 2 Sibling 3 Sibling 4 Social History Tobacco Use Types Packs/Day Years Used Date Smoking Tobacco: Former Smokeless Tobacco: Former Tobacco Cessation:Counseling Given: Not Answered Alcohol Use Standard Drinks/Week Comments Yes 0 (1 standard drink = 0.6 oz pure alcohol) Alcoholic Drinks/day: Occasional social drink Comments Unknown Sex and Gender Information Value Date Recorded Sex Assigned at Not on file Legal Sex Female 4:34 PM EST Gender Identity Not on file Sexual Orientation Not on file Last Filed Vital Signs Vital Sign Reading Time Taken Comments Blood Pressure 112/70 06/03/2023 10:20 AM EDT Pulse - - Temperature - - Respiratory Rate - - Oxygen Saturation - - Inhaled Oxygen Concentration - - Weight 143 kg (315 lb) 10/21/2018 12:00 PM EST Height 167.6 cm (5' 6 ) 07/28/2019 12:00 PM EDT Body Mass Index 50.84 10/21/2018 12:00 PM EST Plan of Treatment Upcoming Encounters Date Type Department Care Team (Late st Contact Info) Description 02/28/2025 9:40 AM EDT Office Visit [facility], [address] [place] [address] Vinicius Simons MD [address] [place] [phone] Health Maintenance Due Date Last Done Comments Breast Cancer Screening 1959 Colorectal Cancer Screening: Annual FOBT 2008 Colorectal Cancer Screening: Colonoscopy 2008 Colorectal Cancer Screening: Sigmoidoscopy 2008 Diabetes: Ophthalmology Exam 12/03/202204/2009, 08/20/2007, 08/13/2006 Diabetes: Pedal Pulse Checked 12/03/2022 Diabetes: Sensory Foot Exam 12/03/2022 Diabetes: Visual Foot Exam 12/03/2022 Diabetes: Hemoglobin A1C 06/06/2024 024, 07/08/2023, 04/08/2023, Additional history exists Influenza Vaccine (#1) 2024 2, 09/21/2019, 09/21/2018 Pneumococcal Vaccine: 65+ Years Completed 08/18/2022 Pneumococcal Vaccine: Pediatrics (0 to 5 Years) and At-Risk Patients (6 to 64 Years) Completed 08/18/2022 Hepatitis B Vaccine Aged Out No longe r eligible based on patient's age to complete this topic Procedures Procedure Name Priority Date/Time Associated Diagnosis Comments HEMOGLOBIN A1C Routine 06/14/2018 9:07 AM EDT from Last 3 Months or Most Recently Relevant to Health Maintenance Results * (ABNORMAL) Hemoglobin A1c (06/14/2018 9:07 AM EDT) Hemoglobin A1C 6.8(H) (4-6) % [id number] Comment: HEMOGLOBIN A1C(%) ?? GLUCOSE CONTROL INDEX ?<6% ? EXCELLENT ?6-7% ?VERY GOOD ?7-8% ?GOOD ?8-10% ? FAIR ?>10% ?POOR Hemoglobin (Hb) A1c testing is performed by Saba Cori-quant immunoassay. Any cause of shortened erythrocyte survival will reduce exposure of erythrocytes to glucose with a consequent decrease in Hb A1c (%). Testing performed or reported by ~[facility], ~a Service of [facility], ~[address] [place] [id number]~ Triston [address] MD, PhD, Dust Mill Operator 06/14/2018 9:07 AM EDT us Vinicius Simons MD LAB BLOOD ORDERABLES Final Re sult [id number] from Last 3 Months or Most Recently Relevant to Health Maintenance Insurance [facility] DUAL SNP ([id number]) [place]PHON[place] ADAM [id number] Care Teams Curator Of Education Relationship Specialty Start Date End Date Vikash Isabel MD [address] [place] [id number] PCP - General Internal Medicine 12/03/22
--- OUTSIDE RECORDS SUMMARY | 2024-12-07 11:07 | XMS_ITS | Encounter Summary ---
Author Organization [employer] Address [address] [place] [address] [place] [address] Care Team Providers Care Drawing Checker Name Role Phone Vikash Isabel MD Primary Care Provider [phone] Reason for Visit * Reason Comments Diabetes Hypertension Encounter Details Date Type Department Care Team ([facility] st Contact Info) Description 12/07/2024 9:45 AM EST Office Visit [facility] [address] [place], [place] [phone] Vikash Isabel MD [address] [place], [place] [phone] Type 2 diabetes mellitus without complication, with long-term current use of insulin ([facility]) (Primary Dx); Pure hypercholesterolemia; Essential hypertension; Dietary counseling; Exercise counseling; Class 3 severe obesity due to excess calories with serious comorbidity and body mass index (BMI) of 40.0 to 44.9 in adult (CMS/HCC); Essential hypertension; Gastroesophageal reflux disease without esophagitis; Type 2 diabetes mellitus without complication, with long-term current use of insulin (CMS/HCC); Type 2 diabetes mellitus without complication, with long-term current use of insulin (CMS/HCC) Social History Tobacco Use Types Packs/Day Years Used Date Smoking Tobacco: Former Cigarettes Q uit: 2004 Passive Smoke Exposure: Never Smokeless Tobacco: Never [...] AM EDT documented as of this encounter Last Filed Vital Signs Vital Sign Reading Time Taken Comments Blood Pressure 130/74 12/07/2024 9:39 AM EST Pulse 63 12/07/2024 9:39 AM EST Temperature 36.7 ??C (98 ??F) 12/07/2024 9:39 AM EST Respiratory Rate 20 12/07/2024 9:39 AM EST Oxygen Saturation 98% 12/07/2024 9:39 AM EST Inhaled Oxygen Concentration - - Weight 121 kg (266 lb) 12/07/2024 9:39 AM EST Height 164.5 cm (5' 4.75 ) 12/07/2024 9:39 AM ES T Body Mass Index 44.61 12/07/2024 9:39 AM EST documented in this encounter Progress Notes * Vikash Isabel MD - 12/07/2024 9:45 AM EST Subjective Patient ID: Yessy Miller is a 64 y.o. female who presents for Diabetes and Hypertension. Diabetes She presents for her follow-up diabetic visit. She has type 2 diabetes mellitus. Her disease coursehas been stable. Pertinent negatives for hypoglycemia include no confusion, dizziness, headaches, mood changes, nervousness/anxiousness, sleepiness, speech difficulty or sweats. Pertinent negatives for diabetes include no blurred vision, no chest pain, no fatigue, no foot paresthesias, no foot ulcerations, no polydipsia, no polyphagia, no polyuria, no visual change, no weakness and no weight loss. Pertinent negatives for hypoglycemia complications include no blackouts, no hospitalization, no nocturnal hypoglycemia, no required assistance and no required glucagon injection. Symptoms are stable. There are no diabetic complications. Pertinent negatives for diabetic complications include no autonomic neuropathy, CVA, heart disease, impotence, nephropathy, peripheral neuropathy, PVD or retinopathy. Risk factors for coronary artery disease include diabetes mellitus, hypertension, sedentary lifestyle and obesity. Hypertension This is a chronic problem. The problem is controlled. Pertinent negatives include no anxiety, blurred vision, chest pain, headaches, malaise/fatigue, neck pain, orthopnea, palpitations, peripheral edema, PND, shortness of breath or sweats. Risk factors for coronary artery disease include diabetes mellitus, obesity and sedentary lifestyle. There is no history of CVA, PVD or retinopathy. NO acute event since the last office visit. Pt is overall doing well. She is at her baseline UTD w/ her OPH exam. Review of Systems Constitutional: Negative for fatigue, malaise/fatigue and weight loss. Eyes: Negative for blurred vision. Respiratory: Negative for shortness of breath. Cardiovascular: Negative for chest pain, palpitations, orthopnea and PND. Endocrine: Negative for polydipsia, polyphagia and polyuria. Genitourinary: Negative for impotence. Musculoskeletal: Negative for neck pain. Neurological: Negative for dizziness, speech difficulty, weakness and headaches. Psychiatric/Behavioral: Negative for confusion. The patient is not nervous/anxious. Objective Physical Exam Constitutional: General: She is not in acute distress. Appearance: Normal appearance. She is obese. She is not ill-appearing, toxic- appearing or diaphoretic. Cardiovascular: Rate and Rhythm: Normal rate. Pulmonary: Effort: Pulmonary effort is normal. Neurological: General: No focal deficit present. Mental Status: She is alert. Psychiatric: Mood and Affect: Mood normal. Assessment/Plan Diagnoses and all orders for this visit: Type 2 diabetes mellitus without complication, with long-term current use of insulin ([facility]) - POCT Glucose - POCT HGB A1C - CBC auto differential; Future - Comprehensive Metabolic Panel; Future - TSH W/Reflex to FT4; Future - empagliflozin (Jardiance) 10 MG; Take 1 tablet (10 mg) by mouth in the morning. - Lantus SoloStar 100 UNIT/ML pen; Inject 10 Units under the skin at bedtime. Stable. A1c 5.8%. No reported episode of hypoglycemia. Patient is up to date with her eye exam. No changes recommended today. Advised to keep as active as tolerated. Goal: 150 minutes of exercise a week. Pure hypercholesterolemia - Lipid Panel, Standard; Future - TSH W/Reflex to FT4; Future Continue with simvastatin 20 mg once a day Low-cholesterol diet Essential hypertension - CBC auto differential; Future - Comprehensive Metabolic Panel; Future - TSH W/Reflex to FT4; Future - amLODIPine (Norvasc) 10 MG tablet; Take 1 tablet (10 mg) by mouth Once per day. - aspirin (EQ Aspirin Adult Low Dose) 81 MG EC tablet; Take 1 tablet (81 mg) by mouth Once per day. - lisinopril-hydroCHLOROthiazide 20-12.5 MG tablet; TAKE 2 TABLETS BY MOUTH ONCE DAILY - metoprolol succinate XL (Toprol-XL) 100 MG 24 hr tablet; Take 1 tablet (100 mg) by mouth Once perday. No change in medication Continue with the DASH diet Dietary counseling Exercise counseling Class 3 severe obesity due to excess calories with serious comorbidity and body mass index (BMI) of40.0 to 44.9 in adult ([facility]) Discussed calorie deficit, recommended reduction of 20-30% of maintenance calories; warp tension tester referral offered. Recommended to decrease soda and sugary beverage consumption. Recommended at least 20 g per meal of protein to assist with satiety. Recommended at least 150 min/week of moderate intensity exercise. Essential hypertension Comments: Controlled No change RTC 3 months. Orders: - CBC auto differential; Future - Comprehensive Metabolic Panel; Future - TSH W/Reflex to FT4; Future - amLODIPine (Norvasc) 10 MG tablet; Take 1 tablet (10 mg) by mouth Once per day. - aspirin (EQ Aspirin Adult Low Dose) 81 MG EC tablet; Take 1 tablet (81 mg) by mouth Once per day. - lisinopril-hydroCHLOROthiazide 20-12.5 MG tablet; TAKE 2 TABLETS BY MOUTH ONCE DAILY - metoprolol succinate XL (Toprol-XL) 100 MG 24 hr tablet; Take 1 tablet (100 mg) by mouth Once perday. Gastroesophageal reflux disease without esophagitis - omeprazole (PriLOSEC) [address] capsule; Take 1 capsule (20 mg) by mouth Once per day. Do not crush or chew. Type 2 diabetes mellitus without complication, with long-term current use of insulin ([facility]) Comments: Continue w/ Jardiance 10 mg I will consider increasing to 25 mg daily if A1c is above 7 at th elast visit goal exercises: 150 minutes a week. Orders: - POCT Glucose - POCT HGB A1C - CBC auto differential; Future - Comprehensive Metabolic Panel; Future - TSH W/Reflex to FT4; Future - empagliflozin (Jardiance) 10 MG; Take 1 tablet (10 mg) by mouth in the morning. - Lantus SoloStar 100 UNIT/ML pen; Inject 10 Units under the skin at bedtime. Type 2 diabetes mellitus without complication, with long-term current use of insulin ([facility]) Comments: Stable Orders: - POCT Glucose - POCT HGB A1C - CBC auto differential; Future - Comprehensive Metabolic Panel; Future - TSH W/Reflex to FT4; Future - empagliflozin (Jardiance) 10 MG; Take 1 tablet (10 mg) by mouth in the morning. - Lantus SoloStar 100 UNIT/ML pen; Inject 10 Units under the skin at bedtime.6 documented in this encounter Plan of Treatment Scheduled Orders Name Type Priority Associated Diagnoses Orde r Schedule CBC auto differential Lab Routine Type 2 diabetes mellitus without complication, with long-term current use of insulin ([facility]) Essential hypertension Expected: 12/07/2024 (Approximate), Expires: 12/07/2025 Comprehensive Metabolic Panel Lab Routine Type 2 diabetes mellitus without complication, with long-term current use of insulin ([facility]) Essential hypertension Expected: 12/07/2024 (Approximate), Expires: 12/07/2025 Lipid Panel, Standard Lab Routine Pure hypercholesterolemia Expected: 12/07/2024 (Approximate), Expires: 12/07/2025 TSH W/Reflex to FT4 Lab Routine Type 2 diabetes mellitus without complication, with long-term current use of insulin ([facility]) Pure hypercholesterolemia Essential hypertension Expected: 12/07/2024 (Approximate), Expires: 12/07/2025 documented as of this encounter Procedures Procedure Name Priority Date/Time Associated Diagnosis Comments POCT GLYCATED HEMOGLOBIN, TOTAL Routine 12/07/2024 9:46 AM EST Type 2 diabetes mellitus without complication, with long-term current use of insulin ([facility]) POCT GLUCOSE Routine 12/07/2024 9:45 AM EST Type 2 diabetes mellitus without complication, with long-term current use of insulin ([facility]) documented in this encounter Results * POCT HGB A1C (12/07/2024 9:46 AM EST) Hemoglobin A1C 5.8 4.0 - 6.0 % QC Media Lot # [id number] Lot# Expiration Date 132,026 Blood 12/07/2024 9:46 AM EST Vikash Isabel MD POINT OF CARE TEST ENTER/ED IT ORDERABLES Final Result * POCT Glucose (12/07/2024 9:45 AM EST) Glucose Blood, POC 115 60 - 200 mg/dL QC Media Lot # [id number] Lot# Expiration Date 482,[id number] Blood Capillary blood specimen / Unknown 12/07/2024 9:45 AM EST us Vikash Isabel MD POINT OF CARE TEST ENTER/ED IT ORDERABLES Final Result documented in this encounter Visit Diagnoses Diagnosis Type 2 diabetes mellitus without complication, with long-term current use of insulin ([facility])- Primary Pure hypercholesterolemia Essential hypertension Unspecified essential hypertension Dietary counseling Dietary surveillance and counseling Exercise counseling Class 3 severe obesity due to excess calories with serious comorbidity and body mass index (BMI) of 40.0 to 44.9 in adult ([facility]) Gastroesophageal reflux disease without esophagitis Esophageal reflux documented in this encounter Additional Health Concerns Assessment Noted Time PHQ-9 Depression Total Score: 0 12/07/19 25 9:41 AM EST documented as of this encounter Care Teams Drawing Checker Relationship Specialty Start Date End Date Vikash Isabel MD [address] [place] [phone] PCP - General Internal Medicine 11/16/18 documented as of this encounter
--- OUTSIDE RECORDS SUMMARY | 2024-12-07 11:07 | XMS_ITS | Encounter Summary ---
Author Organization [employer] Address [address] [address] Care Team Providers Care Set Up Machinist Name Role Phone Vikash Isabel MD Primary Care Provider [phone] Reason for Visit * Reason Onset Date Comments Medication Question 03/26/2023 Encounter Details Date Type Department Care Team ([facility] st Contact Info) Description 03/26/2023 Telephone [facility] [address] [place] [address] Vikash Isabel MD [address] [place] [address] Medication Question Social History Tobacco Use Types Packs/Day Years Used Date Smoking Tobacco: Former Cigarettes Q uit: 2004 Smokeless Tobacco: Never Depression Answer Date Recorded Patient Health Questionnaire-9 Score 0 02/26/2023 Depression Answer Date Recorded Patient Health Questionnaire-2 Score 0 02/26/2023 Comments Unknown Sex and Gender Information Value Date Recorded Sex Assigned at Female 09/15/2022 10:22 AM EDT Legal Sex Female 10:22 AM EDT Gender Identity Female 09/15/2022 10:22 AM EDT Sexual Orientation Straight 09/15/2022 10 :22 AM EDT COVID-19 Exposure Response Date Recorded In the last 10 days, have yo u been in contact with someone who was confirmed or suspected to have Coronavirus/COVID-19? No / Unsure 02/26/2023 1:57 PM EDT documented as of this encounter Miscellaneous Notes * Telephone Encounter - Riana Person RN - 03/26/2023 1:22 PM EDT TC placed to [facility] at [phone] in regards to below message. Let pharmacist know thatPCP gave verbal order for both medications to be filled and taken. * Telephone Encounter - Pool Porras RN - 03/26/2023 10:51 AM EDT Please review message below and advise. Thank you. * Telephone Encounter - Carmen David - 03/26/2023 10:04 AM EDT Tc from [facility] requesting clarification on script for simvastatin 20 mg would like to know if pt is still taking medication due to receiving a script for colchicine 0.6 mg which can cause a med interaction. Please contact at [phone] documented in this encounter Plan of Treatment Not on file documented as of this encounter Visit Diagnoses Not on filedocumented in this encounter Additional Health Concerns Assessment Noted Time PHQ-9 Depression Total Score: 0 02/27/20 23 2:53 PM EDT documented as of this encounter Care Teams Set Up Machinist Relationship Specialty Start Date End Date Vikash Isabel MD [address] [place] [phone] PCP - General Internal Medicine 11/16/18 documented as of this encounter
--- OUTSIDE RECORDS SUMMARY | 2024-12-07 11:08 | XMS_ITS | Encounter Summary ---
Author Organization [facility], Address [address] [place] [address] Phone Care Team Providers Care Flour Mixer Helper Name Role Phone Vikash Isabel MD Primary Care Provider [phone] Encounter Details Date Type Department Care Team (Late st Contact Info) Description 06/04/2022 Documentation Only [facility] [address] [place] [address] Vinicius Simons MD [address] [place] [address] [place] [address] Social History Tobacco Use Types Packs/Day Years [...] Visit [facility] [address] [place] [address] Vinicius Simons MD [address] [place] [address] [place] [address] documented as of this encounter Visit Diagnoses Not on filedocumented in this encounter Care Teams Flour Mixer Helper Relationship Specialty Start Date End Date Vikash Isabel MD [address] [place] [id number] PCP - General Internal Medicine 12/03/22 documented as of this encounter
--- OUTSIDE RECORDS SUMMARY | 2024-12-07 11:08 | XMS_ITS | Encounter Summary ---
Author Organization [facility] [place], Address [address] [place] [address] Phone Care Team Providers Care Data Developer Name Role Phone Vikash Isabel MD Primary Care Provider [phone] Reason for Visit * Reason Comments Med Refill Encounter Details Date Type Department Care Team (Late Contact Info) Description 02/12/2021 Refill [facility] [address] [place] [address] Vinicius Simons MD [address] [place] [address] [place] [address] Social History Tobacco Use Types [...] Visit [facility] [place], [address] [facility] [place] [address] Vinicius Simons MD [address] [place] [address] [place] [address] documented as of this encounter Visit Diagnoses Not on filedocumented in this encounter Care Teams Data Developer Relationship Specialty Start Date End Date Vikash Isabel MD [address] [place] [phone] PCP - General Internal Medicine 12/03/22 documented as of this encounter
--- OUTSIDE RECORDS SUMMARY | 2024-12-07 11:08 | XMS_ITS | Encounter Summary ---
Author Organization [facility] [place], Address [address] [place] [address] Phone Care Team Providers Care Construction Consultant Name Role Phone Vikash Isabel MD Primary Care Provider [phone] Encounter Details Date Type Department Care Team (Late st Contact Info) Description 06/03/2024 Documentation Only [facility] [address] [facility] [place] [address] [place]ne Andersen [place] [address] [place] [address] Social History Tobacco Use Types Packs/Day Years [...] Visit [facility] [address] [facility] [place] [place] [address] Vinicius Simons MD [address] [facility] [place] [address] documented as of this encounter Visit Diagnoses Not on filedocumented in this encounter Care Teams Construction Consultant Relationship Specialty Start Date End Date Vikash Isabel MD [address] [place] [address] [phone] PCP - General Internal Medicine 12/03/22 documented as of this encounter
--- OUTSIDE RECORDS SUMMARY | 2024-12-07 11:08 | XMS_ITS | Encounter Summary ---
Author Organization [facility] [place], Address [address] [place] [address] Phone Care Team Providers Care Telecommunications Administrator Name Role Phone Vikash Isabel MD Primary Care Provider [phone] Reason for Visit * Reason Comments Med Refill Encounter Details Date Type Department Care Team (Late Contact Info) Description 06/16/2020 Refill [facility] [address] [place] [address] Vinicius Simons MD [address] [place] [address] [place] [phone] Social History Tobacco Use Types Packs/Day Years Used Date Smoking Tobacco: Former Comments Unknown Sex and Gender Information Value Date Recorded Sex Assigned at Not on file Legal Sex Female 4:34 PM EST Gender Identity Not on file Sexual Orientation Not on file documented as of this encounter Plan of Treatment Upcoming Encounters Date Type Department Care Team (Late Contact Info) Description 02/28/2025 9:40 AM EDT Office Visit [facility] [place], [address] [place] [address] Vinicius Simons MD [address] [place] [address] [place] [address] documented as of this encounter Visit Diagnoses Not on filedocumented in this encounter Care Teams Telecommunications Administrator Relationship Specialty Start Date End Date Vikash Isabel MD [address] [place] [address] [phone] PCP - General Internal Medicine 12/03/22 documented as of this encounter
--- OUTSIDE RECORDS SUMMARY | 2024-12-07 11:08 | XMS_ITS | Encounter Summary ---
Author Organization [facility] [place], Address [address] [place] [address] Phone Care Team Providers Care Air Transportation Provider Name Role Phone Vikash Isabel MD Primary Care Provider [phone] Reason for Visit * Reason Comments Med Refill Encounter Details Date Type Department Care Team (Late Contact Info) Description 04/15/2020 Refill [facility] [address] [place] [phone] Vinicius Simons MD [address] [place] [address] [place] [phone] Social History Tobacco Use Types Packs/Day Years Used Date Smoking Tobacco: Former Comments Unknown Sex and Gender Information Value Date Recorded Sex Assigned at Not on file Legal Sex Female 4:34 PM EST Gender Identity Not on file Sexual Orientation Not on file documented as of this encounter Plan of Treatment Upcoming Encounters Date Type Department Care Team ([facility] Contact Info) Description 02/28/2025 9:40 AM EDT Office Visit [facility] [place], [address] [place] [address] Vinicius Simons MD [address] [place] [address] [place] [address] documented as of this encounter Visit Diagnoses Not on filedocumented in this encounter Care Teams Air Transportation Provider Relationship Specialty Start Date End Date Vikash Isabel MD [address] [place] [address] [phone] PCP - General Internal Medicine 12/03/22 documented as of this encounter
--- OUTSIDE RECORDS SUMMARY | 2024-12-07 11:08 | XMS_ITS | Encounter Summary ---
Author Organization [facility] [place], Address [address] [place] [address] Phone Care Team Providers Care Frame And Scrap Crusher Name Role Phone Vikash Isabel MD Primary Care Provider [phone] Reason for Visit * Reason Comments Med Refill Encounter Details Date Type Department Care Team (Late Contact Info) Description 06/24/2022 Refill [facility] [address] [place] [address] Vinicius Simons MD [address] [place] [address] [place] [address] Social History Tobacco Use Types [...] Office Visit [facility], [address] [facility] [facility] [place] [address] Vinicius Simons MD [address] [place] [address] [place] [address] documented as of this encounter Visit Diagnoses Not on filedocumented in this encounter Care Teams Frame And Scrap Crusher Relationship Specialty Start Date End Date Vikash Isabel MD [address] [place] [phone] PCP - General Internal Medicine 12/03/22 documented as of this encounter
--- OUTSIDE RECORDS SUMMARY | 2024-12-07 11:08 | XMS_ITS | Encounter Summary ---
Author Organization [facility] [place], Address [address] [place] [address] Phone Care Team Providers Care Facing Baster Name Role Phone Vikash Isabel MD Primary Care Provider [phone] Reason for Visit * Reason Comments Med Refill Encounter Details Date Type Department Care Team (Late Contact Info) Description 09/02/2021 Refill [facility] [address] [place] [address] Vinicius Simons MD [address] [place] [address] [place] [address] Social History Tobacco Use Types [...] Visit [facility] [place], [address] [facility] [place] [address] Vinicius Simons MD [address] [place] [address] [place] [address] documented as of this encounter Visit Diagnoses Not on filedocumented in this encounter Care Teams Facing Baster Relationship Specialty Start Date End Date Vikash Isabel MD [address] [place] [phone] PCP - General Internal Medicine 12/03/22 documented as of this encounter
--- OUTSIDE RECORDS SUMMARY | 2024-12-07 11:08 | XMS_ITS | Encounter Summary ---
Author Organization [facility] [place], Address [address] [place] [address] Phone Care Team Providers Care Technical Services Assistant Name Role Phone Vikash Isabel MD Primary Care Provider [phone] Reason for Visit * Reason Comments Med Refill Encounter Details Date Type Department Care Team (Late Contact Info) Description 08/01/2020 Refill [facility] [address] [place] [phone] Vinicius Simons MD [address] [place] [address] [place] [address] Social History Tobacco Use Types Packs/Day Years Used Date Smoking Tobacco: Former Smokeless Tobacco: Former Comments Unknown Sex and Gender [...] Visit [facility] [place], [address] [facility] [place] [address] Vinicius Simons MD [address] [place] [address] [place] [address] documented as of this encounter Visit Diagnoses Not on filedocumented in this encounter Care Teams Technical Services Assistant Relationship Specialty Start Date End Date Vikash Isabel MD [address] [place] [phone] PCP - General Internal Medicine 12/03/22 documented as of this encounter
--- OUTSIDE RECORDS SUMMARY | 2024-12-07 11:08 | XMS_ITS | Encounter Summary ---
Author Organization [facility] [place], Address [address] [place] [address] Phone Care Team Providers Care Skin Diving Teacher Name Role Phone Vikash Isabel MD Primary Care Provider [phone] Reason for Visit * Reason Comments Med Refill Encounter Details Date Type Department Care Team (Late Contact Info) Description 03/26/2020 Refill [facility] [address] [place] [phone] Vinicius Simons MD [address] [place] [address] [place] [address] Social History Tobacco Use Types Packs/Day Years Used Date Smoking Tobacco: Former Comments Unknown Sex and Gender Information Value Date Recorded Sex Assigned at Not on file Legal Sex Female 4:34 PM EST Gender Identity Not on file Sexual Orientation Not on file documented as of this encounter Plan of Treatment Upcoming Encounters Date Type Department Care Team ([facility] Contact Info) Description 02/28/2025 9:40 AM EDT Office Visit [facility] [place], [address] [place] [address] Vinicius Simons MD [address] [place] [address] [place] [address] documented as of this encounter Visit Diagnoses Not on filedocumented in this encounter Care Teams Skin Diving Teacher Relationship Specialty Start Date End Date Vikash Isabel MD [address] [place] [address] [phone] PCP - General Internal Medicine 12/03/22 documented as of this encounter
--- OUTSIDE RECORDS SUMMARY | 2024-12-07 11:08 | XMS_ITS | Encounter Summary ---
Author Organization [facility] [place], Address [address] [place] [address] Phone Care Team Providers Care Glove Printer Name Role Phone Vikash Isabel MD Primary Care Provider [phone] Reason for Visit * Reason Comments Med Refill Encounter Details Date Type Department Care Team (Late Contact Info) Description 06/15/2021 Refill [facility] [address] [place] [address] Vinicius Simons MD [address] [place] [address] [place] [address] Social History Tobacco Use Types [...] Office Visit [facility], [address] [facility] [place] [address] Vinicius Simons MD [address] [place] [address] [place] [address] documented as of this encounter Visit Diagnoses Not on filedocumented in this encounter Care Teams Glove Printer Relationship Specialty Start Date End Date Vikash Isabel MD [address] [place] [phone] PCP - General Internal Medicine 12/03/22 documented as of this encounter
--- OUTSIDE RECORDS SUMMARY | 2024-12-07 11:08 | XMS_ITS | Encounter Summary ---
Author Organization [facility] [place], Address [address] [place] [address] Phone Care Team Providers Care Saturation Diver Name Role Phone Vikash Isabel MD Primary Care Provider [phone] Encounter Details Date Type Department Care Team (Late st Contact Info) Description 06/04/2022 Documentation Only [facility] [address] [address] [place] [address] Vinicius Simons MD [address] [place] [address] [place] [address] Social History Tobacco Use Types [...] Visit [facility] [address] [address] [place] [address] Vinicius Simons MD [address] [place] [address] [place] [address] documented as of this encounter Visit Diagnoses Not on filedocumented in this encounter Care Teams Saturation Diver Relationship Specialty Start Date End Date Vikash Isabel MD [address] [place] [phone] PCP - General Internal Medicine 12/03/22 documented as of this encounter
--- OUTSIDE RECORDS SUMMARY | 2024-12-07 11:08 | XMS_ITS | Encounter Summary ---
Author Organization [facility] [place], Address [address] [place] [address] Phone Care Team Providers Care Order To Delivery Supervisor Name Role Phone Vikash Isabel MD Primary Care Provider [phone] Reason for Visit * Reason Comments Med Refill Encounter Details Date Type Department Care Team (Late Contact Info) Description 07/17/2021 Refill [facility] [address] [place] [address] Vinicius Simons MD [address] [place] [address] [place] [address] Social History Tobacco Use Types [...] Visit [facility], [address] [facility] [place] [address] Vinicius Simons MD [address] [place] [address] [place] [address] documented as of this encounter Visit Diagnoses Not on filedocumented in this encounter Care Teams Order To Delivery Supervisor Relationship Specialty Start Date End Date Vikash Isabel MD [address] [place] [phone] PCP - General Internal Medicine 12/03/22 documented as of this encounter
--- OUTSIDE RECORDS SUMMARY | 2024-12-07 11:08 | XMS_ITS | Encounter Summary ---
Author Organization [facility] [place], Address [address] [place] [address] Phone Care Team Providers Care Chef De Cuisine Name Role Phone Vikash Isabel MD Primary Care Provider [phone] Reason for Visit * Reason Comments Med Refill Encounter Details Date Type Department Care Team (Late Contact Info) Description 05/15/2020 Refill [facility] [address] [place] [phone] Vinicius Simons MD [address] [place] [address] [place] [address] Social History Tobacco Use Types Packs/Day Years Used Date Smoking Tobacco: Former Comments Unknown Sex and Gender Information Value Date Recorded Sex Assigned at Not on file Legal Sex Female 4:34 PM EST Gender Identity Not on file Sexual Orientation Not on file documented as of this encounter Plan of Treatment Upcoming Encounters Date Type Department Care Team ([facility] Contact Info) Description 02/28/2025 9:40 AM EDT Office Visit [facility] [place], [address] [place] [address] Vinicius Simons MD [address] [place] [address] [place] [address] documented as of this encounter Visit Diagnoses Not on filedocumented in this encounter Care Teams Chef De Cuisine Relationship Specialty Start Date End Date Vikash Isabel MD [address] [place] [address] [phone] PCP - General Internal Medicine 12/03/22 documented as of this encounter
--- OUTSIDE RECORDS SUMMARY | 2024-12-07 11:08 | XMS_ITS | Encounter Summary ---
Author Organization [facility] [place], Address [address] [place] [address] Phone Care Team Providers Care Dipper And Baker Name Role Phone Vikash Isabel MD Primary Care Provider [phone] Reason for Visit * Reason Comments Med Refill Encounter Details Date Type Department Care Team (Late Contact Info) Description 02/14/2020 Refill [facility] [address] [place] [address] Vinicius Simons MD [address] [place] [address] [place] [address] Social History Tobacco Use Types Packs/Day Years [...] Visit [facility] [place], [address] [place] [address] Vinicius Simons MD [address] [place] [address] [place] [address] documented as of this encounter Visit Diagnoses Not on filedocumented in this encounter Care Teams Dipper And Baker Relationship Specialty Start Date End Date Vikash Isabel MD [address] [place] [address] [phone] PCP - General Internal Medicine 12/03/22 documented as of this encounter
--- OUTSIDE RECORDS SUMMARY | 2024-12-07 11:08 | XMS_ITS | Encounter Summary ---
Author Organization [facility] [place], Address [address] [place] [address] Phone Care Team Providers Care Digital Operations Analyst Name Role Phone Vikash Isabel MD Primary Care Provider [phone] Reason for Visit * Reason Comments Med Refill Encounter Details Date Type Department Care Team (Late Contact Info) Description 07/08/2023 Refill [facility] [address] [place] [address] Vinicius Simons MD [address] [place] [address] [place] [address] Social History Tobacco Use Types [...] Office Visit [facility], [address] [place] [address] Vinicius Simons MD [address] [place] [address] [place] [address] documented as of this encounter Visit Diagnoses Not on filedocumented in this encounter Care Teams Digital Operations Analyst Relationship Specialty Start Date End Date Vikash Isabel MD [address] [place] [phone] PCP - General Internal Medicine 12/03/22 documented as of this encounter
--- OUTSIDE RECORDS SUMMARY | 2024-12-07 11:08 | XMS_ITS | Encounter Summary ---
Author Organization [facility] [place], Address [address] [place] [address] Phone Care Team Providers Care Corporate Recycling Manager Name Role Phone Vikash Isabel MD Primary Care Provider [phone] Reason for Visit * Reason Comments Med Refill Encounter Details Date Type Department Care Team (Late Contact Info) Description 07/23/2021 Refill [facility] [address] [place] [address] Vinicius Simons MD [address] [place] [address] [place] [address] Social History Tobacco Use Types [...] Office Visit [facility], [address] [facility] [place] [address] Vinicius Simons MD [address] [place] [address] [place] [address] documented as of this encounter Visit Diagnoses Not on filedocumented in this encounter Care Teams Corporate Recycling Manager Relationship Specialty Start Date End Date Vikash Isabel MD [address] [place] [phone] PCP - General Internal Medicine 12/03/22 documented as of this encounter
[2024-12-07 14:08] LABS: MANUAL DIFF FLAG NO
[2024-12-07 14:11] LABS: Basophils Absolute Auto 0.1 X10*3/uL (0.0-0.2); Basophils Percent Auto 0.8 % (0-2); Eosinophils Absolute Auto 0.1 X10*3/uL (0.0-0.4); Eosinophils Percent Auto 1.5 % (0-4); Hematocrit 43.3 % (37.0-47.0); Hemoglobin 14.1 g/dl (12.0-16.0); Imm Gran Abs Auto 0.01 X10*3/uL (0.00-0.03); Imm Gran Pct Auto 0.1 % (0.0-0.4); Lymphocytes Absolute Auto 2.2 X10*3/uL (1.2-4.9); Lymphocytes Percent Auto 29.9 % (20-40); Mean Corpuscular HGB Conc 32.6 g/dl (31.0-35.0); Mean Corpuscular Hemoglobin 28.4 pg (27.0-33.0); Mean Corpuscular Volume 87.1 fL (80.0-98.0); Mean Platelet Volume 12.6 fL (9.4-12.3); Monocytes Absolute Auto 0.5 X10*3/uL (0.1-1.2); Monocytes Percent Auto 6.4 % (2-11); Neutrophils Absolute Auto 4.4 x10*3/uL (2.0-8.3); Neutrophils Percent Auto 61.3 % (45-73); Platelet Count 262 X10*3/uL (160-400); Red Blood Count 4.97 X10*6/uL (4.20-5.50); Red Cell Distribution Width 15.1 % (11.0-16.0); White Blood Count 7.2 X10*3/uL (4.8-10.8)
[2024-12-07 14:48] LABS: Alanine Aminotransferase 14 U/L (0-31); Albumin Level 4.4 g/dL (3.5-5.0); Alkaline Phosphatase 84 U/L (39-117); Anion Gap 11 (12-20); Aspartate Amino Transferase 19 U/L (5-31); Bilirubin Total 0.3 mg/dL (0.0-1.0); Blood Urea Nitrogen 19 mg/dL (9-16); Calcium 10.6 mg/dL (8.4-10.2); Carbon Dioxide 28 mmol/L (22-29); Chloride 108 mmol/L (96-108); Cholesterol 132 mg/dL (<200); Estimated Glomerular Filt Rate 41; Glucose Random 93 mg/dL (60-115); HDL Cholesterol 40 mg/dL (>40); LDL Cholesterol Calculated 67 mg/dL (<100); Potassium 3.7 mmol/L (3.3-5.1); Sodium 143 mmol/L (135-145); Total Protein 7.9 g/dL (6.5-8.0); Triglycerides 125 mg/dL (<150)
[2024-12-07 14:55] LABS: TSH reflex Free T4 0.39 uIU/mL (0.32-4.0)
== END 2024-12-07 10:09 | disposition home or self-care (01) ==
LOC: HO.CHCLDS 10:08
PROVIDERS: Visit Provider Internal Medicine
DX: E11.9 Type 2 diabetes mellitus without complications (principal); Z79.4 Long term (current) use of insulin; I10 Essential (primary) hypertension; E78.00 Pure hypercholesterolemia, unspecified
CPT/HCPCS: 36415; 80053; 80061; 84443; 85025

== ENCOUNTER 2024-12-12 09:09 | Outpatient (REF) | payer OTHER, SELFPAY ==
--- OUTSIDE RECORDS SUMMARY | 2024-12-12 13:28 | XMS_ITS | Clinical Summary ---
Author Organization [facility] [place], Address [address] [place] [address] [place] [address] Phone Care Team Providers Care Shot Peening Operator Name Role Phone Vikash Isabel MD Primary Care Provider [phone] Allergies Active Allergy Reactions Criticality Noted Date [...] Visit [facility] [place], [address] [address] Vinicius Simons MD Stage 3a chronic [...] Visit [facility] [place], [address] [facility] [address] Vinicius Simons MD [address] [facility] [place] [address] Health Maintenance Due Date Last Done Comments [...] A1c (%). Testing performed or reported by ~[facility], ~a Service of [facility], ~[address] [place] [id number]~ Triston Lane MD, PhD, [employer] 06/14/2018 9:07 AM EDT us Vinicius Simons MD LAB BLOOD ORDERABLES Final Re sult [id number] from Last 3 Months or Most Recently Relevant to Health Maintenance Insurance [facility] DUAL SNP ([id number]) [place] ADAM [id number] Care Teams Shot Peening Operator Relationship Specialty Start Date End Date Vikash Isabel MD [address] [place] [phone] PCP - General Internal Medicine 12/03/22
--- OUTSIDE RECORDS SUMMARY | 2024-12-12 13:29 | XMS_ITS | Encounter Summary ---
Author Organization [facility] Address [address] [place] [address] Phone Care Team Providers Care Experimental Plastics Fabricator Name Role Phone Vikash Isabel MD Primary Care Provider [phone] Encounter Details Date Type Department Care Team (Late st Contact Info) Description 11/29/2024 9:30 AM EST Office Visit [facility] [address] [place] [address] Vinicius Simons MD [address] [place] [address] [place] [address] Stage 3a chronic kidney disease [...] Visit [facility] [address] [facility] [place] [place] [address] Vinicius Simons MD [address] [facility] [place] [address] documented as of this encounter Visit Diagnoses Diagnosis Stage 3a chronic kidney disease (HCC)- Primary documented in this encounter Care Teams Experimental Plastics Fabricator Relationship Specialty Start Date End Date Vikash Isabel MD [address] [place] [address] PCP - General Internal Medicine 12/03/22 documented as of this encounter
--- OUTSIDE RECORDS SUMMARY | 2024-12-12 13:29 | XMS_ITS | Encounter Summary ---
Author Organization [facility], Address [address] [place] [address] Phone Care Team Providers Care Metal Products Viewer Name Role Phone Vikash Isabel MD Primary Care Provider [phone] Reason for Visit * Reason Comments Med Refill Encounter Details Date Type Department Care Team (Late Contact Info) Description 04/15/2020 Refill [facility] [address] [place] [phone] Viincius [place] MD [address] [place] [address] [place] [phone] Social History Tobacco Use Types Packs/Day Years Used Date Smoking Tobacco: Former Comments Unknown Sex and Gender Information Value Date Recorded Sex Assigned at Not on file Legal Sex Female 4:34 PM EST Gender Identity Not on file Sexual Orientation Not on file documented as of this encounter Plan of Treatment Upcoming Encounters Date Type Department Care Team ([facility] Contact Info) Description 02/28/2025 9:40 AM EDT Office Visit [facility], [address] [place] [phone] Vinicius [place] MD [address] [place] [address] [place] [address] documented as of this encounter Visit Diagnoses Not on filedocumented in this encounter Care Teams Metal Products Viewer Relationship Specialty Start Date End Date Vikash Isabel MD [address] [place] [address] [phone] PCP - General Internal Medicine 12/03/22 documented as of this encounter
--- OUTSIDE RECORDS SUMMARY | 2024-12-12 13:29 | XMS_ITS | Encounter Summary ---
Author Organization [facility], Address [address] [place] [address] Phone Care Team Providers Care Dispute Coordinator Name Role Phone Vikash Isabel MD Primary Care Provider [phone] Reason for Visit * Reason Comments Med Refill Encounter Details Date Type Department Care Team (Late Contact Info) Description 07/17/2021 Refill [facility] [address] [place] [address] Vinicius [place]ons MD [address] [place] [address] [place] [address] Social History Tobacco Use Types [...] Office Visit [facility], [address] [place] [address] Vinicius [place] MD [address] [place] [address] [place] [address] documented as of this encounter Visit Diagnoses Not on filedocumented in this encounter Care Teams Dispute Coordinator Relationship Specialty Start Date End Date Vikash Isabel MD [address] [place] [address] PCP - General Internal Medicine 12/03/22 documented as of this encounter
--- OUTSIDE RECORDS SUMMARY | 2024-12-12 13:29 | XMS_ITS | Encounter Summary ---
Author Organization [facility], Address [address] [place] [address] Phone Care Team Providers Care Wedger Name Role Phone Vikash Isabel MD Primary Care Provider [phone] Reason for Visit * Reason Comments Med Refill Encounter Details Date Type Department Care Team (Late Contact Info) Description 07/23/2021 Refill [facility] [address] [place] [address] Vinicius [place] MD [address] [place] [address] [place] [address] Social History Tobacco Use Types [...] Visit [facility], [address] [place] [address] Vinicius [place] MD [address] [place] [address] [place] [address] documented as of this encounter Visit Diagnoses Not on filedocumented in this encounter Care Teams Wedger Relationship Specialty Start Date End Date Vikash Isabel MD [address] [place] [phone] PCP - General Internal Medicine 12/03/22 documented as of this encounter
--- OUTSIDE RECORDS SUMMARY | 2024-12-12 13:29 | XMS_ITS | Encounter Summary ---
Author Organization [facility] [place], Address [address] [place] [address] Phone Care Team Providers Care Educational Diagnostician Name Role Phone Vikash Isabel MD Primary Care Provider [phone] Reason for Visit * Reason Comments Med Refill Encounter Details Date Type Department Care Team (Late Contact Info) Description 02/12/2021 Refill [facility] [address] [place] [address] Vinicius [place] MD [address] [place] [address] [place] [address] Social History Tobacco Use Types [...] Visit [facility] [place], [address] [place] [address] Vinicius [place] MD [address] [place] [address] [place] [address] documented as of this encounter Visit Diagnoses Not on filedocumented in this encounter Care Teams Educational Diagnostician Relationship Specialty Start Date End Date Vikash Isabel MD [address] [place] [phone] PCP - General Internal Medicine 12/03/22 documented as of this encounter
--- OUTSIDE RECORDS SUMMARY | 2024-12-12 13:29 | XMS_ITS | Clinical Summary ---
Author Organization [address] [facility] Address [address] [place] [address] Phone Care Team Providers Care Director Credit Risk Name Role Phone Vikash Isabel MD Primary Care Provider [phone] Allergies Active Allergy Reactions Criticality Noted Date [...] y, Class III, BMI 40-49.9 (morbid obesity) (CMS/[facility]) INJECT 1 MG SUBCUTANEOUSLY ONCE A WEEK 4 mL 12/06/2024 Active semaglutide (Wegovy) 1 mg/0.5 mL injection penIndications:T ype 2 diabetes mellitus with cataract ([facility]),Obesit y, Class III, BMI 40-49.9 (morbid obesity) ([facility]) Inject 1 mg under the skin every [...] 9:30 AM EST Nutrition Bariatric Surgery - [address] [address] Class 3 severe obesity with body mass index (BMI) of 40.0 to 44.9 in adult, unspecified obesity type, unspecified whether serious comorbidity present ([facility]) (Primary Dx) 09/27/2024 10:45 AM EST Office Visit Bariatric Surgery [address] [address] Sugey Hughes MD Type 2 diabetes mellitus with cataract ([facility]) (Primary Dx); Obesity, Class III, BMI 40-49.9 (morbid obesity) ([facility]) from Last 3 Months Immunizations Name Administration Dates Next Due Td Tetanus diptheria (Tdvax) 7yo and older 02/15 Tdap Tetanus diptheria acell ular pertussis (Boostrix; Adacel) 7yo and older 12/13/2008 Surgical History Surgery Date Site/Laterality Comments OTHER SURGICAL HISTORY 01/11/1999 PROCEDURE: SD HENDRICKSON FACETECTOMY & FORAMOTOMY 1 VRT SGM LUMBAR; COMMENT: laminectomy L5-S1 OTHER SURGICAL HISTORY 10/16/2009 PROCEDURE: MAMMOGRAM COLONOSCOPY 05/16/2009 PROCEDURE: SD COLONOSCOPY STOMA DX INCLUDING COLLJ SPEC SPX; [...] obesity with BMI of 5 0.0-59.9, adult ([facility]) 05/10/2021 DX:Morbid obesity with BMI o f 50.0-59.9, adult ([facility]) Type 2 diabetes mellitus wit h cataract ([facility]) DX:Type 2 diabetes mellitus with cataract ([facility]) Cataract 05/10/2021 DX:Cataract Family History Medical History [...] 9:30 AM EST Office Visit Bariatric Surgery [facility] [address] [phone] Sugey Hughes MD [address] [address] 01/10/2025 9:00 AM EST Telemedicine Bariatric Surgery [facility] [address] [phone] [address] Health Maintenance Due Date Last Done Comments [...] * Annual BMP Blood Test (03/31/2022) Pathologist [facility] Annual BMP Blood Test Abstracted Historical Provider MD REGIS HOPPER E * Hemoglobin A1c (07/02/2020) Pathologist [facility] Hemoglobin A1C 6.3 6.5 % Blood Venous blood specimen / Unknown Historical Provider LAB BLOOD ORDERAB LES * Lipid panel (07/02/2020) Pathologist [facility] LDL/HDL Ratio 3 0 - 4 Triglycerides 148 0 - 150 mg/dL Cholesterol 134 0 - 200 mg/dL HDL 41 40 mg/dL LDL Cholesterol 64 0 - 100 mg/dL Blood Venous blood specimen / Unknown Historical Provider LAB BLOOD ORDERAB LES * Pap Smear (03/14/2011) Pathologist [facility] Pap smear Negative, Abstracted Historical Provider MD REGIS HOPPER E * Urine Albumin Creatinine Ratio (12/13/2008) Pathologist [facility] Urine Albumin Creatinine Ratio Abstracted Historical Provider MD REGIS Gerber from Last 3 Months or Most Recently Relevant to Health Maintenance Care Teams Director Credit Risk Relationship Specialty Start Date End Date Vikash Isabel MD [address] [place] PCP - General Internal Medicine 07/30/21
--- OUTSIDE RECORDS SUMMARY | 2024-12-12 13:29 | XMS_ITS | Encounter Summary ---
Author Organization [facility] [place], Address [address] [place] [address] Phone Care Team Providers Care Blueprint Reader Name Role Phone Vikash Isabel MD Primary Care Provider [phone] Encounter Details Date Type Department Care Team (Late st Contact Info) Description 06/04/2022 Documentation Only [facility] [address] [address] Vinicius [place]ons MD [address] [place] [address] [place] [address] Social History Tobacco Use Types [...] Visit [facility] [address] [place] [address] Vinicius [place]ons MD [address] [place] [address] [place] [address] documented as of this encounter Visit Diagnoses Not on filedocumented in this encounter Care Teams Blueprint Reader Relationship Specialty Start Date End Date Vikash Isabel MD [address] [place] [phone] PCP - General Internal Medicine 12/03/22 documented as of this encounter
--- OUTSIDE RECORDS SUMMARY | 2024-12-12 13:29 | XMS_ITS | Encounter Summary ---
Author Organization [facility], Address [address] [place] [address] Phone Care Team Providers Care Back Roller Name Role Phone Vikash Isabel MD Primary Care Provider [phone] Reason for Visit * Reason Comments Med Refill Encounter Details Date Type Department Care Team (Late Contact Info) Description 03/26/2020 Refill [facility] [address] [place] [phone] Vinicius [place] MD [address] [place] [address] [place] [phone] Social History Tobacco Use Types Packs/Day Years Used Date Smoking Tobacco: Former Comments Unknown Sex and Gender Information Value Date Recorded Sex Assigned at Not on file Legal Sex Female 4:34 PM EST Gender Identity Not on file Sexual Orientation Not on file documented as of this encounter Plan of Treatment Upcoming Encounters Date Type Department Care Team ([facility] Contact Info) Description 02/28/2025 9:40 AM EDT Office Visit [facility] [place], [address] [place] [phone] Vinicius [place] MD [address] [place] [address] [place] [address] documented as of this encounter Visit Diagnoses Not on filedocumented in this encounter Care Teams Back Roller Relationship Specialty Start Date End Date Vikash Isabel MD [address] [place] [address] [phone] PCP - General Internal Medicine 12/03/22 documented as of this encounter
--- OUTSIDE RECORDS SUMMARY | 2024-12-12 13:29 | XMS_ITS | Encounter Summary ---
Author Organization [facility] [place], Address [address] [place] [address] Phone Care Team Providers Care Cardiac Rehabilitation Specialist Name Role Phone Vikash Isabel MD Primary Care Provider [phone] Reason for Visit * Reason Comments Med Refill Encounter Details Date Type Department Care Team (Late Contact Info) Description 06/16/2020 Refill [facility] [address] [place] [phone] Vinicius [place] MD [address] [address] [place] [phone] Social History Tobacco Use Types Packs/Day Years [...] Visit [facility] [place], [address] [place] [phone] Vinicius [place] MD [address] [place] [address] [place] [address] documented as of this encounter Visit Diagnoses Not on filedocumented in this encounter Care Teams Cardiac Rehabilitation Specialist Relationship Specialty Start Date End Date Vikash Isabel MD [address] [place] [address] [phone] PCP - General Internal Medicine 12/03/22 documented as of this encounter
--- OUTSIDE RECORDS SUMMARY | 2024-12-12 13:29 | XMS_ITS | Encounter Summary ---
Author Organization [facility] [place], Address [address] [place] [address] Phone Care Team Providers Care Room Service Clerk Name Role Phone Vikash Isabel MD Primary Care Provider [phone] Reason for Visit * Reason Comments Med Refill Encounter Details Date Type Department Care Team (Late Contact Info) Description 05/15/2020 Refill [facility] [address] [place] [phone] Vinicius [place] MD [address] [place] [address] [place] [phone] Social History Tobacco Use Types Packs/Day Years Used Date Smoking Tobacco: Former Comments Unknown Sex and Gender Information Value Date Recorded Sex Assigned at Not on file Legal Sex Female 4:34 PM EST Gender Identity Not on file Sexual Orientation Not on file documented as of this encounter Plan of Treatment Upcoming Encounters Date Type Department Care Team ([facility] Contact Info) Description 02/28/2025 9:40 AM EDT Office Visit [facility] [place], [address] [phone] Vinicius [place] MD [address] [place] [address] [place] [address] documented as of this encounter Visit Diagnoses Not on filedocumented in this encounter Care Teams Room Service Clerk Relationship Specialty Start Date End Date Vikash Isabel MD [address] [place] [address] [phone] PCP - General Internal Medicine 12/03/22 documented as of this encounter
--- OUTSIDE RECORDS SUMMARY | 2024-12-12 13:29 | XMS_ITS | Encounter Summary ---
Author Organization [facility] [place], Address [address] [place] [address] Phone Care Team Providers Care Seamer Operator Name Role Phone Vikash Isabel MD Primary Care Provider [phone] Encounter Details Date Type Department Care Team (Late st Contact Info) Description 06/04/2022 Documentation Only [facility] [address] [address] Vinicius [place] MD [address] [place] [address] [place] [address] Social History Tobacco Use Types [...] Visit [facility] [address] [place] [address] Vinicius [place] MD [address] [place] [address] [place] [address] documented as of this encounter Visit Diagnoses Not on filedocumented in this encounter Care Teams Seamer Operator Relationship Specialty Start Date End Date Vikash Isabel MD [address] [place] [phone] PCP - General Internal Medicine 12/03/22 documented as of this encounter
--- OUTSIDE RECORDS SUMMARY | 2024-12-12 13:29 | XMS_ITS | Encounter Summary ---
Author Organization [facility] [place], Address [address] [place] [address] Phone Care Team Providers Care Endoscope Technician Name Role Phone Vikash Isabel MD Primary Care Provider [phone] Encounter Details Date Type Department Care Team (Late st Contact Info) Description 06/03/2024 Documentation Only [facility] [address] [place] [address] [place] [address] [place] [address] [place] [address] Social History Tobacco Use Types [...] [facility] [address] [place] [address] Vinicius [place] MD [address] [place] [address] documented as of this encounter Visit Diagnoses Not on filedocumented in this encounter Care Teams Endoscope Technician Relationship Specialty Start Date End Date Vikash Isabel MD [address] [place] [address] [phone] PCP - General Internal Medicine 12/03/22 documented as of this encounter
--- OUTSIDE RECORDS SUMMARY | 2024-12-12 13:29 | XMS_ITS | Encounter Summary ---
Author Organization [facility] [place], Address [address] [place] [address] Phone Care Team Providers Care Shutdown Coordinator Name Role Phone Vikash Isabel MD Primary Care Provider [phone] Reason for Visit * Reason Comments Med Refill Encounter Details Date Type Department Care Team (Late Contact Info) Description 07/08/2023 Refill [facility] [address] [place] [address] Vinicius [place] MD [address] [place] [address] [place] [address] Social History Tobacco Use Types [...] Office Visit [facility], [address] [place] [address] Vinicius [place] MD [address] [place] [address] [place] [address] documented as of this encounter Visit Diagnoses Not on filedocumented in this encounter Care Teams Shutdown Coordinator Relationship Specialty Start Date End Date Vikash Isabel MD [address] [place] [phone] PCP - General Internal Medicine 12/03/22 documented as of this encounter
--- OUTSIDE RECORDS SUMMARY | 2024-12-12 13:29 | XMS_ITS | Encounter Summary ---
Author Organization [facility] [place], Address [address] [place] [address] Phone Care Team Providers Care Technical Instructor Name Role Phone Vikash Isabel MD Primary Care Provider [phone] Reason for Visit * Reason Comments Med Refill Encounter Details Date Type Department Care Team (Late Contact Info) Description 09/02/2021 Refill [facility] [address] [place] [address] Vinicius [place] MD [address] [place] [address] [place] [address] Social History Tobacco Use Types [...] Office Visit [facility], [address] [place] [address] Vinicuis [place] MD [address] [place] [address] [place] [address] documented as of this encounter Visit Diagnoses Not on filedocumented in this encounter Care Teams Technical Instructor Relationship Specialty Start Date End Date Vikash Isabel MD [address] [place] [phone] PCP - General Internal Medicine 12/03/22 documented as of this encounter
--- OUTSIDE RECORDS SUMMARY | 2024-12-12 13:29 | XMS_ITS | Encounter Summary ---
Author Organization [facility] [place], Address [address] [place] [address] Phone Care Team Providers Care Slumber Room Attendant Name Role Phone Vikash Isabel MD Primary Care Provider [phone] Reason for Visit * Reason Comments Med Refill Encounter Details Date Type Department Care Team (Late Contact Info) Description 08/01/2020 Refill [facility] [address] [place] [phone] Vinicius [place] MD [address] [place] [address] [place] [address] Social History Tobacco Use Types [...] Visit [facility] [place], [address] [phone] Vinicius [place] MD [address] [place] [address] [place] [address] documented as of this encounter Visit Diagnoses Not on filedocumented in this encounter Care Teams Slumber Room Attendant Relationship Specialty Start Date End Date Vikash Isabel MD [address] [place] [phone] PCP - General Internal Medicine 12/03/22 documented as of this encounter
--- OUTSIDE RECORDS SUMMARY | 2024-12-12 13:29 | XMS_ITS | Encounter Summary ---
Author Organization [facility] [place], Address [address] [place] [address] Phone Care Team Providers Care Welding Machine Operator Submerged Arc Name Role Phone Vikash Isabel MD Primary Care Provider [phone] Reason for Visit * Reason Comments Med Refill Encounter Details Date Type Department Care Team (Late Contact Info) Description 06/24/2022 Refill [facility] [address] [place] [address] Vinicius [place] MD [address] [place] [address] [place] [address] Social History Tobacco Use Types [...] Visit [facility], [address] [place] [address] Vinicius [place] MD [address] [place] [address] [place] [address] documented as of this encounter Visit Diagnoses Not on filedocumented in this encounter Care Teams Welding Machine Operator Submerged Arc Relationship Specialty Start Date End Date Vikash Isabel MD [address] [place] [phone] PCP - General Internal Medicine 12/03/22 documented as of this encounter
--- OUTSIDE RECORDS SUMMARY | 2024-12-12 13:29 | XMS_ITS | Encounter Summary ---
Author Organization [facility] [place], Address [address] [place] [address] Phone Care Team Providers Care Limehouse Worker Name Role Phone Vikash Isabel MD Primary Care Provider [phone] Reason for Visit * Reason Comments Med Refill Encounter Details Date Type Department Care Team (Late Contact Info) Description 06/15/2021 Refill [facility] [address] [place] [address] Vinicius [place] MD [address] [place] [address] [place] [address] Social History Tobacco Use Types [...] Visit [facility] [place] [facility], [address] [place] [address] Vinicius [place] MD [address] [place] [address] [place] [address] documented as of this encounter Visit Diagnoses Not on filedocumented in this encounter Care Teams Limehouse Worker Relationship Specialty Start Date End Date Vikash Isabel MD [address] [place] [phone] PCP - General Internal Medicine 12/03/22 documented as of this encounter
--- OUTSIDE RECORDS SUMMARY | 2024-12-12 13:29 | XMS_ITS | Encounter Summary ---
Author Organization [facility], Address [address] [place] [address] Phone Care Team Providers Care Maintenance Mechanic Telephone Name Role Phone Vikash Isabel MD Primary Care Provider [phone] Reason for Visit * Reason Comments Med Refill Encounter Details Date Type Department Care Team (Late Contact Info) Description 02/14/2020 Refill [facility] [address] [place] [phone] Vinicius Simons MD [address] [place] [address] [place] [phone] Social History Tobacco Use Types Packs/Day Years [...] Visit [facility], [address] [place] [phone] Vinicius Simons MD [address] [place] [address] [place] [address] documented as of this encounter Visit Diagnoses Not on filedocumented in this encounter Care Teams Maintenance Mechanic Telephone Relationship Specialty Start Date End Date Vikash Isabel MD [address] [place] [address] [phone] PCP - General Internal Medicine 12/03/22 documented as of this encounter
[2024-12-12 14:42] LABS: Calcium 9.8 mg/dL (8.4-10.2)
[2024-12-12 15:12] LABS: Parathyroid Hormone Intact 82.5 pg/mL (8.7-77.1)
== END 2024-12-12 09:10 | disposition home or self-care (01) ==
LOC: HO.CHCLDS 09:09
PROVIDERS: Visit Provider Internal Medicine
DX: E83.52 Hypercalcemia (principal)
CPT/HCPCS: 36415; 82310; 83970

== ENCOUNTER 2025-06-08 08:08 | Outpatient (REF) | payer OTHER, SELFPAY ==
--- OUTSIDE RECORDS SUMMARY | 2025-06-08 08:16 | XMS_ITS | Clinical Summary ---
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 Immunizations Immunization Administration Dates Next Due Influenza, Quadrivalent, With Preservative 09/21,09/21/2018 Influenza, Recombinant, Quadrivalent, Pf 022 Pneumococcal Conjugate Pcv 20 08/18/2022 Shingrix 09/23/2022 Td 02/15/1999 Tdap 11/07/2016,12/13/2008 Family History Medical History Relation Comments Heart disease Father CT between the a ges of 50 to 60 Stroke Father Hypertension Mother Heart disease Sibling [address] betwe en the ages of 50 to [...] Care Team (Late st Contact Info) Description 06/27/2025 9:30 AM EDT Office Visit [facility], [address] [place] [address] Vinicius Simons MD [address] [place] [address] Health Maintenance Due Date Last Done Comments Breast Cancer Screening 1959 Colorectal Cancer Screening: Annual FOBT 2008 Colorectal Cancer Screening: Colonoscopy 2008 Colorectal Cancer Screening: Sigmoidoscopy 2008 Diabetes: Ophthalmology Exam 12/03/2022 01/19/2009, 08/20/2007, 08/13/2006 Diabetes: Pedal Pulse Checked 12/03/2022 Diabetes: Sensory Foot Exam 12/03/2022 Diabetes: Visual Foot Exam 12/03/2022 Diabetes: Hemoglobin A1C 03/07/2025 025, 03/07/2024, 07/08/2023, Additional history exists Influenza Vaccine (#1) 2025 , 09/21/2019, 09/21/2018 Pneumococcal Vaccine: 50+ Years Completed 08/18/2022 Pneumococcal Vaccine: Peds (0 to 5 Years) and At-Risk Patients (6 to 49 Years) Discontinued 08/18/2022 Hepatitis B Vaccine Aged Out No longe r eligible based on patient's age to complete this topic Procedures Procedure Name Priority Date/Time Associated Diagnosis Comments HEMOGLOBIN A1C Routine 06/14/2018 9:07 AM EDT from Last 3 Months or Most Recently Relevant to Health Maintenance Results * (ABNORMAL) Hemoglobin A1c (06/14/2018 9:07 AM EDT) Hemoglobin A1C 6.8(H) (4-6) % [place] [id number] Comment: HEMOGLOBIN A1C(%) GLUCOSE CONTROL INDEX <6% EXCELLENT 6-7% VERY GOOD 7-8% GOOD 8-10% FAIR >10% POOR Hemoglobin (Hb) A1c testing is performed by Saba Cori-quant immunoassay. Any cause of shortened erythrocyte survival will reduce exposure of erythrocytes to glucose with a consequent decrease in Hb A1c (%). Testing performed or reported by ~[facility], ~a Service of [facility], ~[address] [place] [address]~ Triston Lane MD, PhD, [employer] Counter Person 06/14/2018 9:07 AM EDT us Vinicius Simons MD LAB BLOOD ORDERABLES Final Re sult [id number] from Last 3 Months or Most Recently Relevant to Health Maintenance Insurance [facility] Dual SNP ([id number]) [place] [id number] [facility] [place] [id number] [facility] [place] [id number] Care Teams Reach Lift Truck Driver Relationship Specialty Start Date End Date Vikash Isabel MD [address] [place] [id number] PCP - General Internal Medicine 12/03/22
--- OUTSIDE RECORDS SUMMARY | 2025-06-08 08:16 | XMS_ITS | Encounter Summary ---
Author Organization [employer] [facility] Address [address] [place] [id number] Care Team Providers Care Pin Drafter Operator Name Role Phone Vikash Isabel MD Primary Care Provider [phone] Encounter Details Date Type Department Care Team (Late st Contact Info) Description 01/09/2023 Orders Only [facility] [address] [place] [address] Arcahna Pollard LPN Social History Tobacco Use Types [...] Care Team (Late st Contact Info) Description 07/06/2025 9:15 AM EDT Office Visit [facility] [address] [place] [address] Vikash Isabel MD [address] [place] [address] documented as of this encounter Visit Diagnoses Not on filedocumented in this encounter Care Teams Pin Drafter Operator Relationship Specialty Start Date End Date Vikash Isabel MD [address] [place] [address] PCP - General Internal Medicine 11/16/18 documented as of this encounter
--- OUTSIDE RECORDS SUMMARY | 2025-06-08 08:16 | XMS_ITS | Clinical Summary ---
Author Organization [facility] Address [address] [place] [address] Phone Care Team Providers Care Bottom Sander Name Role Phone Vikash Isabel MD Primary Care Provider [phone] Allergies Active Allergy Reactions Criticality Noted Date Comments Cephalexin Rash 08/18/2024 Levofloxacin Rash 08/18/2024 Morphine Sulfate Rash 03/02/2006 Medications empagliflozin (Jardiance) 10 mg tablet Take by mouth. Active ONDANSETRON HCL, BULK, MISC Take 4 mg by mouth every 8 hours as needed (nausea). 1 Active amlodipine besylate (AMLODIPINE ORAL) Take 10 mg by mouth daily. Active wheat dextrin (Benefiber Clear SF, dextrin,) 3 gram/3.5 gram powder in packet Take 4 g by mouth daily. 1 Active omeprazole OTC (PriLOSEC OTC) 20 mg EC tablet 1 PO QD 0 Active CHOLECALCIFEROL, VITAMIN D3, ORAL Take 1,000 Units by mouth daily. Active lisinopril-hydro CHLOROthiazide (PRINZIDE,ZESTOR ETIC) 20-12.5 mg per tablet 1 qd 0 Active simvastatin (ZOCOR) 10 mg tablet 1 TABLET AT BEDTIME 0 Active metoprolol succinate (TOPROL-XL) 100 mg 24 hr tablet 1 TABLET DAILY 0 Active aspirin 81 mg EC tablet 1 TABLET DAILY Active tirzepatide, weight loss, (Zepbound) 5 mg/0.5 mL injectionIndicat ions:Class 3 severe obesity with body mass index (BMI) of 40.0 to 44.9 in adult, unspecified obesity type, unspecified whether serious comorbidity present ([facility] V24, [facility] V28) Inject 0.5 mL (5 mg total) under the skin every 7 (seven) days. 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 (08/18/2024): right, total vision loss negative echo, normal carotid usn, negative for clotting abnormality Displacement of lumbar inter 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 11/06/2005 Overview (08/18/2024): laminectomy Sciatica 11/06/2005 Pyelonephritis 06/29/2004 Overview (08/18/2024): severe, left, sepsis and renal tubular acidosis 06/19 subsequent kidney atrophy Pneumonia 06/19/2004 Hypertension 02/12/2001 Encounters Date Type Department Care Team Description 03/28/2025 11:00 AM EDT Telemedicine Bariatric Surgery [address] [address] Kaylyn Kruse, PAUL Class 3 severe obesity without serious comorbidity with body mass index (BMI) of 40.0 to 44.9 in adult, unspecified obesity type ([facility] V24, [facility] V28) (Primary Dx) from Last 3 Months Immunizations Name Administration Dates Next Due Td Tetanus diptheria (Tdvax) 7yo and older 02/15 Tdap Tetanus diptheria acell ular pertussis (Boostrix; Adacel) 7yo and older 12/13/2008 Surgical History Surgery Date Site/Laterality Comments OTHER SURGICAL HISTORY 01/11/1999 PROCEDURE: LA HENDRICKSON FACETECTOMY & FORAMOTOMY 1 VRT SGM LUMBAR; COMMENT: laminectomy L5-S1 OTHER SURGICAL HISTORY 10/16/2009 PROCEDURE: MAMMOGRAM COLONOSCOPY 05/16/2009 PROCEDURE: LA COLONOSCOPY STOMA DX INCLUDING COLLJ SPEC SPX; [...] obesity with BMI of 5 0.0-59.9, adult ([facility] V24, [facility] V28) 05/10/2021 DX:Morbid obesity wit h BMI of 50.0-59.9, adult ([facility]) Type 2 diabetes mellitus wit h cataract ([facility] V24, [facility] V28) DX:Type 2 diabetes mellitus with cataract ([facility]) Cataract 05/10/2021 DX:Cataract Family History Medical History [...] drink = 0.6 oz pur e alcohol) Comments Unknown Sex and Gender Information Value Date Recorded Sex Assigned at Not on file Legal Sex Female 12:34 AM EST Gender Identity Not on file Sexual Orientation Not on file Obstetrics History Last Filed Vital Signs Vital Sign Reading Time Taken Comments Blood Pressure 109/71 12/26/2024 9:24 AM EST Pulse 68 12/26/2024 9:24 AM EST Temperature 36.6 C (97.8 F) 12/26/2024 9:24 AM EST Respiratory Rate - - Oxygen Saturation - - Inhaled Oxygen Concentration - - Weight 123 kg (271 lb) 03/28/2025 12:00 PM EDT Height 167.6 cm (5' 6 ) 12/26/2024 9:24 AM EST Body Mass Index 43.74 12/26/2024 9:24 AM EST Plan of Treatment Upcoming Encounters Date Type Department Care Team (Late st Contact Info) Description 06/20/2025 9:15 AM EDT Office Visit Bariatric Surgery [facility] [address] [phone] Sugey Hughes MD [address] [phone] 06/28/2025 10:00 AM EDT Nutrition Bariatric Surgery [facility] [address] [phone] Kaylyn Kruse, PAUL [address] [address] Health Maintenance Due Date Last Done Comments Breast Cancer Screening 1959 Diabetes: Annual Foot Exam 1969 Diabetes: Annual Retina Eye Exam 1969 Colorectal Cancer Screening: Colonoscopy 10/25/2022 Hepatitis C Screening 10/25/2022 Medicare Annual Wellness Visit 10/25/2022 Osteoporosis Screening (Bone Density Screening) 10/25/2022 Social Influencers of Health Screening 10/25/2022 Diabetes: Annual Urine Albumin-Creatinine Ratio (uACR) 10/29/2022 12/13/2008 Falls Risk Assessment 2024 Depression Screening 11/16/2024 COVID-19 Vaccine ( season) 2025 09/23/2024, 03/10/2023, 04/08/2021, Additional history exists Diabetes: Blood Sugar Control Test (HGBA1C) 06/06/2025 12/07/2024, 03/07/2024, 07/02/2020, Additional history exists Influenza Vaccine (#1) 2025 , 08/18/2022, 09/21/2019, Additional history exists Diabetes: Annual GFR (Glomerular Filtration Rate) 12/07/2025 12/07/2024, 03/31/2022 Hypertension/CHF/CAD Annual BMP Blood Test 12/07/2025 12/07/2024, 03/31/2022 DTaP,Tdap,and Td Vaccines (4 - Td or Tdap) 11/07/2026 11/07/2016, 12/13/2008, 02/15/1999 Cholesterol Screening (Lipid Panel) 12/07/2029 12/07/2024, 12/07/2023, 07/02/2020 Pneumococcal Vaccine: 50+ Years Completed 08/18/2022 Zoster Vaccines Completed 03/10/2023, 09/23/2022 RSV Immunization Adult Patients Completed 12/30/2024 HIB Vaccines Aged Out No longer eligi [...] patient's age to complete this topic Meningococcal B Vaccine Aged Out No l onger eligible based on patient's age to complete [...] A1C Routine 07/02/2020 LIPID PANEL Routine 07/02/2020 URINE ALBUMIN CREATININE RATIO Routine 12/13/2008 from Last 3 Months or Most Recently Relevant to Health Maintenance Results * Annual BMP Blood Test (03/31/2022) Pathologist [facility] Annual BMP Blood Test Abstracted [facility] Provider HEALTH MAINTENANCE Final Result * Hemoglobin A1c (07/02/2020) [facility] Hemoglobin A1C 6.3 <=6.5 % Blood Venous blood specimen / Unknown Result [facility] Provider LAB BLOOD ORDERABLES Alvina l Result * Lipid panel (07/02/2020) [facility] LDL/HDL Ratio 3 0 - 4 Triglycerides 148 0 - 150 mg/dL Cholesterol 134 0 - 200 mg/dL HDL 41 >=40 mg/dL LDL Cholesterol 64 0 - 100 mg/dL Blood Venous blood specimen / Unknown Result [facility] Provider LAB BLOOD ORDERABLES Alvina l Result * Urine Albumin Creatinine Ratio (12/13/2008) [facility] Urine Albumin Creatinine Ratio Abstracted Result [facility] Provider HEALTH MAINTENANCE Final Result from Last 3 Months or Most Recently Relevant to Health Maintenance Insurance [place] [id number] [facility] MEDICARE Member Subscriber Plan / Payer (Ef fective 2024-Present) Name:Yessy Miller Relation to Subscriber:Self Name:Yessy Miller Payer ID:[id number] Group ID:[id number] Type:Not on file Address: [place] [address] [place] [id number] Care Teams Bottom Sander Relationship Specialty Start Date End Date Vikash Isabel MD [address] [place] [address] PCP - General Internal Medicine 07/30/21
== END 2025-06-08 08:09 | disposition home or self-care (01) ==
LOC: HO.MAMMO 08:08
PROVIDERS: Visit Provider Internal Medicine
DX: Z12.31 Encounter for screening mammogram for malignant neoplasm of breast (principal)
CPT/HCPCS: 77063; 77067

== ENCOUNTER → 2025-06-08 08:30 | Outpatient (BNV) | payer OTHER, SELFPAY | PROVIDERS: Visit Provider Internal Medicine | DX: Z12.31 Encounter for screening mammogram for malignant neoplasm of breast (principal) | CPT/HCPCS: 77063; 77067 ==

== ENCOUNTER 2025-07-06 10:25 | Outpatient (REF) | payer OTHER, SELFPAY ==
--- OUTSIDE RECORDS SUMMARY | 2025-07-06 11:55 | XMS_ITS | Clinical Summary ---
Author Organization [facility], Address [address] [place] [address] [place] [address] Phone Care Team Providers Care Teasel Gig Operator Name Role Phone Vikash Isabel MD Primary Care Provider [phone] Allergies Active Allergy Reactions Criticality Noted Date Comments Cephalexin Rash Low 01/13/2020 Cephalosporins Levofloxacin Rash Low 01/13/2020 Morphine Other (see comments) 01/13/2020 Medications omeprazole (PriLOSEC) [address] capsule Take 1 capsule by mouth 1 (one) time each day Active cholecalcifer ol (VITAMIN D-3) 25 MCG (1000 UT) tablet Take 1 tablet by mouth 1 (one) time each day Active loratadine (CLARITIN) 10 MG tablet Take 1 tablet by mouth 1 (one) time each day Active traMADol (ULTRAM) 50 MG tablet Take 50 mg by mouth if needed Active NovoLOG FLEXPEN 100 UNIT/ML injection INJECT 12 UNITS SUBCUTANEOUSLY BEFORE EACH MEAL 020 Active Lantus SoloStar 100 UNIT/ML injection INJECT 50 UNITS SUBCUTANEOUSLY EVERY DAY AT BEDTIME 020 Active B-D ULTRAFINE III SHORT PEN 31G X 8 MM misc 021 Active acetaminophen (Tylenol) 325 MG tablet Take 1 tablet by mouth Active acetaminophen (TYLENOL) 500 MG tablet Take 2 tablets (1,000 mg total) by mouth every 8 (eight) hours if needed for mild pain 60 tablet 3 022 Active Blood Glucose Monitoring Suppl (Snaps Confirm Glucose Monitor) w/Device kit 1 Units 4 times a day 1 kit 1 023 Active fexofenadine (JACKIE) 60 MG tablet 04/14/2 023 Active Dextrose, Diabetic Use, (Glucose) 1 g chewable tablet take 1 Tablet by Oral route as needed for hypoglycemia ( BG < 70 mg/dl) Active colchicine 0.6 MG tablet Take 0.6 mg by mouth in the morning. Active allopurinol (ZYLOPRIM) 300 MG tablet Take 1 tablet (300 mg total) by mouth 1 (one) time each day 30 tablet 5 023 Active Blood Glucose Monitoring Suppl (FreeStyle Lite) w/Device kit 1 Device in the morning and 1 Device in the evening. Use glucometer to check blood sugars twice daily dx code e11.21. 1 kit Active Empagliflozin (Jardiance) 10 MG tablet Take 10 mg by mouth every morning Active Blood Pressure Monitoring (Blood Pressure Kit) device 1 kit 1 (one) time each day Take blood pressure daily dx code I10 1 each 024 Active Jardiance 10 MG tablet Take 10 mg by mouth 1 (one) time each day 90 tablet 3 025 Active lisinopril-hy droCHLOROthia zide (PRINZIDE,ZES TORETIC) 20-12.5 MG per tablet Take 1 tablet by mouth 1 (one) time each day 90 tablet 3 025 Active metoprolol succinate XL (TOPROL-XL) 100 MG 24 hr tablet Take 1 tablet (100 mg total) by mouth 1 (one) time each day Do not crush or chew. 90 tablet 3 025 Active simvastatin (ZOCOR) 20 MG tablet Take 1 tablet (20 mg total) by mouth 1 (one) time each day in the evening 90 tablet 3 025 Active amLODIPine (NORVASC) 10 MG tablet Take 1 tablet (10 mg total) by mouth 1 (one) time each day 90 tablet 3 025 Active aspirin (EQ Aspirin Adult Low Dose) 81 MG EC tablet Take 1 tablet (81 mg total) by mouth 1 (one) time each day 90 tablet 3 025 Active EQ Aspirin Adult Low Dose 81 MG EC tablet Take 1 tablet by mouth once daily 90 tablet 3 021 2024 Discontinued(R eorder (does not appear on AVS)) simvastatin (ZOCOR) 20 MG tablet Take 20 mg by mouth 1 (one) time each day in the evening 022 2024 Discontinued(R eorder (does not appear on AVS)) Jardiance 10 MG tablet 023 2024 Discontinued(R eorder (does not appear on AVS)) Wegovy 0.25 MG/0.5ML solution auto-injector INJECT 0.25 MG SUBCUTANEOUSLY ONCE A WEEK 024 2024 Discontinued amLODIPine (NORVASC) 10 MG tablet Take 1 tablet (10 mg total) by mouth 1 (one) time each day 90 tablet 3 024 2024 Discontinued(R eorder (does not appear on AVS)) metoprolol succinate XL (TOPROL-XL) 100 MG 24 hr tablet Take 1 tablet (100 mg total) by mouth 1 (one) time each day Do not crush or chew. 90 tablet 3 024 2024 Discontinued(R eorder (does not appear on AVS)) lisinopril-hy droCHLOROthia zide (PRINZIDE,ZES TORETIC) 20-12.5 MG per tablet Take 1 tablet by mouth 1 (one) time each day 90 tablet 3 024 2024 Discontinued(R eorder (does not appear on AVS)) Active Problems Problem Noted Date Diagnosed Date [...] Encounters Date Type Department Care Team Description 06/27/2025 9:30 AM EDT Office Visit [facility], [address] [address] Vinicius Simons MD Stage 3a chronic kidney disease (HCC) (Primary Dx) from Last 3 Months Immunizations Immunization Administration Dates Next Due Influenza, Quadrivalent, With Preservative 09/21,09/21/2018 Influenza, Recombinant, Quadrivalent, Pf 022 Pneumococcal Conjugate Pcv 20 08/18/2022 Shingrix 09/23/2022 Td 02/15/1999 Tdap 11/07/2016,12/13/2008 Family History Medical History Relation Comments Heart disease Father [place] between the a ges of 50 to 60 Stroke Father Hypertension Mother Heart disease Sibling 1 Brother [place] betwe en the ages of 50 to [...] Care Team (Late st Contact Info) Description 10/03/2025 10:20 AM EST Office Visit [facility], [address] [place] [address] Vinicius Simons MD [address] [place] [address] Health Maintenance Due Date Last Done Comments [...] AM EDT) Hemoglobin A1C 6.8(H) (4-6) % [place] [address] Comment: HEMOGLOBIN A1C(%) GLUCOSE CONTROL INDEX <6% EXCELLENT 6-7% VERY GOOD 7-8% GOOD 8-10% FAIR >10% POOR Hemoglobin (Hb) A1c testing is performed by Saba Cori-quant immunoassay. Any cause of shortened erythrocyte survival will reduce exposure of erythrocytes to glucose with a consequent decrease in Hb A1c (%). Testing performed or reported by ~[facility], ~a Service of [facility], ~[address] [place] [id number]~ Triston Lane MD, PhD, Bottle Packing Machine Cleaner 06/14/2018 9:07 AM EDT us Vinicius Simons MD LAB BLOOD ORDERABLES Final Re sult [id number] from Last 3 Months or Most Recently Relevant to Health Maintenance Insurance [facility] Care Dual SNP ([id number]) Care Teams Teasel Gig Operator Relationship Specialty Start Date End Date Vikash Isabel MD [address] [place] [address] [place] [address] PCP - General Internal Medicine 12/03/22
--- OUTSIDE RECORDS SUMMARY | 2025-07-06 11:55 | XMS_ITS | Clinical Summary ---
Author Organization 175 [facility] Address [address] [place] [address] Phone Care Team Providers Care Supervisor Pre Wave Name Role Phone Vikash Isabel MD Primary Care Provider [phone] Allergies Active Allergy Reactions Criticality Noted Date Comments Cephalexin Rash 08/18/2024 Cephalosporins Rash Low 06/20/2025 Levofloxacin Rash 08/18/2024 Morphine Sulfate Rash 03/02/2006 Medications empagliflozin (Jardiance) 10 mg tablet Take by mouth. Activ e ONDANSETRON HCL, BULK, MISC Take 4 mg by mouth every 8 hours as needed (nausea). Active amlodipine besylate (AMLODIPINE ORAL) Take 10 mg by mouth daily. Active wheat dextrin (Benefiber Clear SF, dextrin,) 3 gram/3.5 gram powder in packet Take 4 g by mouth daily. Active omeprazole OTC (PriLOSEC OTC) 20 mg EC tablet 1 PO QD Active CHOLECALCIFERO L, VITAMIN D3, ORAL Take 1,000 Units by mouth daily. Active lisinopril-hyd roCHLOROthiazi de (PRINZIDE,ZEST ORETIC) 20-12.5 mg per tablet 1 qd Active simvastatin (ZOCOR) 10 mg tablet 1 TABLET AT BEDTIME Active metoprolol succinate (TOPROL-XL) 100 mg 24 hr tablet 1 TABLET DAILY Active aspirin 81 mg EC tablet 1 TABLET DAILY Activ e tirzepatide, weight loss, (Zepbound) 7.5 mg/0.5 mL injectionIndic ations:Class 3 severe obesity without serious comorbidity with body mass index (BMI) of 40.0 to 44.9 in adult, unspecified obesity type ([facility] V24, [facility] V28) Inject 0.5 mL (7.5 mg total) under the skin every 7 (seven) days for 4 doses. 2 mL 025 2024 Active tirzepatide, weight loss, (Zepbound) 5 mg/0.5 mL injectionIndic ations:Class 3 severe obesity with body mass index (BMI) of 40.0 to 44.9 in adult, unspecified obesity type, unspecified whether serious comorbidity present ([facility] V24, [facility] V28) Inject 0.5 mL (5 mg total) under the skin every 7 (seven) days. 2 mL 025 2024 Discontinued Zepbound 5 mg/0.5 mL injectionIndic ations:Class 3 severe obesity with body mass index (BMI) of 40.0 to 44.9 in adult, unspecified obesity type, unspecified whether serious comorbidity present ([facility] V24, [facility] V28) INJECT 5 MG SUBCUTANEOUSLY ONCE A WEEK FOR 7 DAYS 4 mL 025 2024 Discontinued Active Problems Problem Noted Date Diagnosed Date Type 2 diabetes mellitus wit h cataract ([facility] V24, [facility] V28) 08/18/2024 Class 3 severe obesity with serious comorbidity and body mass index (BMI) of 45.0 to 49.9 in adult ([facility] V24, [facility] V28) 08/18/2024 Primary hyperparathyroidism ([facility] V24) 2021 Acute nontraumatic kidney injury ([facility] V24) 0 11/27/2021 Cataract 05/10/2021 Severe obesity (BMI >= 40) ([facility] V24, [facility] V28) 03/05/2021 Stage 3a chronic kidney disease ([facility] V24, [facility] V28) 01/13/2020 Type 2 diabetes mellitus ([facility] V24, [facility] V 28) 09/21/2018 Esophageal reflux 04/13/2007 Pure hypercholesterolemia 01/28/2007 Renal artery stenosis ([facility]/HCC V24) 04/25/2006 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 Overview (08/18/2024): right, total vision loss negative echo, normal carotid usn, negative for clotting abnormality Displacement of lumbar inter 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 11/06/2005 Overview (08/18/2024): laminectomy Sciatica 11/06/2005 Pyelonephritis 06/29/2004 Overview (08/18/2024): severe, left, sepsis and renal tubular acidosis 06/19 subsequent kidney atrophy Pneumonia 06/19/2004 Hypertension 02/12/2001 Encounters Date Type Department Care Team Description 06/28/2025 10:00 AM EDT Nutrition Bariatric Surgery [address] [address] Class 3 severe obesity with serious comorbidity and body mass index (BMI) of 45.0 to 49.9 in adult, unspecified obesity type ([facility] V24, [facility] V28) (Primary Dx) 06/20/2025 9:15 AM EDT Office Visit Bariatric Surgery [address] [phone] Sugey Hughes MD Class 3 severe obesity without serious comorbidity with body mass index (BMI) of 40.0 to 44.9 in adult, unspecified obesity type ([facility]/HCC V24, [facility]/HCC V28) (Primary Dx) from Last 3 Months Immunizations Name Administration Dates Next Due Td Tetanus diptheria (Tdvax) 7yo and older 02/15 Tdap Tetanus diptheria acell ular pertussis (Boostrix; Adacel) 7yo and older 12/13/2008 Surgical History Surgery Date Site/Laterality Comments OTHER SURGICAL HISTORY 01/11/1999 PROCEDURE: NC HENDRICKSON FACETECTOMY & FORAMOTOMY 1 VRT SGM LUMBAR; COMMENT: laminectomy L5-S1 OTHER SURGICAL HISTORY 10/16/2009 PROCEDURE: MAMMOGRAM COLONOSCOPY 05/16/2009 PROCEDURE: NC COLONOSCOPY STOMA DX INCLUDING COLLJ SPEC SPX; [...] obesity with BMI of 5 0.0-59.9, adult ([facility] V24, [facility] V28) 05/10/2021 DX:Morbid obesity wit h BMI of 50.0-59.9, adult ([facility]) Type 2 diabetes mellitus wit h cataract ([facility] V24, [facility] V28) DX:Type 2 diabetes mellitus with cataract ([facility]) Cataract 05/10/2021 DX:Cataract Family History Medical [...] Sign Reading Time Taken Comments Blood Pressure 116/69 06/20/2025 8:45 AM EDT Pulse 64 06/20/2025 8:45 AM EDT Temperature 36.6 C (97.8 F) 06/20/2025 8:45 AM EDT Respiratory Rate - - Oxygen Saturation - - Inhaled Oxygen Concentration - - Weight 123 kg (270 lb 12.8 oz) 06/28/2025 10:01 AM EDT Height 167.6 cm (5' 6 ) 06/20/2025 8:45 AM EDT Body Mass Index 43.71 06/20/2025 8:45 AM EDT Plan of Treatment Upcoming Encounters Date Type Department Care Team (Late st Contact Info) Description 09/28/2025 9:00 AM EST Nutrition Bariatric Surgery - [place] [address] [address] Kaylyn Kruse, PAUL [address] [address] 12/12/2025 9:00 AM EST Office Visit Bariatric Surgery [address] [address] Sugey Hughes MD [address] [address] Health Maintenance Due Date Last Done Comments [...] Procedure Name Priority Date/Time Associated Diagnosis Comments ANNUAL BMP BLOOD TEST Routine 03/31/2022 HEMOGLOBIN A1C Routine 07/02/2020 LIPID PANEL Routine 07/02/2020 URINE ALBUMIN CREATININE RATIO Routine 12/13/2008 from Last 3 Months or Most Recently Relevant to Health Maintenance Results * Annual BMP Blood Test (03/31/2022) Pathologist [facility] Annual BMP Blood Test Abstracted [facility] Provider HEALTH MAINTENANCE Final Result * Hemoglobin A1c (07/02/2020) Pathologist [facility] Hemoglobin A1C 6.3 <=6.5 % Blood Venous blood specimen / Unknown Result [facility] Provider LAB BLOOD ORDERABLES Alvina l Result * Lipid panel (07/02/2020) Pathologist [facility] LDL/HDL Ratio 3 0 - 4 Triglycerides 148 0 - 150 mg/dL Cholesterol 134 0 - 200 mg/dL HDL 41 >=40 mg/dL LDL Cholesterol 64 0 - 100 mg/dL Blood Venous blood specimen / Unknown Result [facility] Provider LAB BLOOD ORDERABLES Alvina l Result * Urine Albumin Creatinine Ratio (12/13/2008) Pathologist [facility] Urine Albumin Creatinine Ratio Abstracted Result [facility] Provider HEALTH MAINTENANCE Final Result from Last 3 Months or Most Recently Relevant to Health [place] [id number] [facility] MEDICARE Member Subscriber Plan / Payer (Ef fective 2024-Present) Name:YESSY MILLER Relation to Subscriber:Self Name:Yessy Miller Payer ID:[id number] Group ID:[id number] Type:Not on file Address: [place] [address] [address] [address] Care Teams Supervisor Pre Wave Relationship Specialty Start Date End Date Vikash Isabel MD [address] [place] [address] [place] PCP - General Internal Medicine 07/30/21
--- OUTSIDE RECORDS SUMMARY | 2025-07-06 11:55 | XMS_ITS | Encounter Summary ---
Author Organization [employer] Address [address] [facility] 7t [place] [address] Care Team Providers Care Transmission Assembler Name Role Phone Vikash Isabel MD Primary Care Provider [phone] Encounter Details Date Type Department Care Team (Latest Contact Info) Description 07/06/2025 Travel Social History Tobacco Use Types Packs/Day [...] documented as of this encounter Care Teams Transmission Assembler Relationship Specialty Start Date End Date Vikash Isabel MD [address] [place] [phone] PCP - General Internal Medicine 11/16/18 documented as of this encounter
[2025-07-06 15:05] LABS: Microalbum/Creatinine Ratio Ur 11.5 ug/mg cr (<30)
== END 2025-07-06 10:26 | disposition home or self-care (01) ==
LOC: HO.CHCLDS 10:25
PROVIDERS: Visit Provider Internal Medicine
DX: E11.22 Type 2 diabetes mellitus with diabetic chronic kidney disease (principal); N18.31 Chronic kidney disease, stage 3a; Z79.4 Long term (current) use of insulin
CPT/HCPCS: 82043; 82570

== ENCOUNTER 2025-07-24 08:22 | Outpatient (REF) | payer OTHER, SELFPAY ==
--- NOTE | ~2025-07-24 | XR_ITS ---
CLINICAL HISTORY: right shoulder pain 4 view right shoulder Comparison: None Findings: Normal congruency of the glenohumeral joint. AC joint arthrosis with minimal undersurface spurring. No fractures or bony erosions. Greater tuberosity cysts. Normal bone mineralization. Small ossific density subacromial space No radiopaque foreign body. Normal visualized right chest. Impression: 1. No acute fractures or malalignment. 2. AC joint arthrosis with minimal undersurface spurring small ossific density near the subacromial space probably from remote trauma or calcific tendinopathy. Greater tuberosity cysts are also present. This document has been electronically signed by: Julius Cooley MD on 07/24/2025 10:44:32
--- OUTSIDE RECORDS SUMMARY | 2025-07-24 09:17 | XMS_ITS | Encounter Summary ---
Author Organization [facility], Address [address] [place] [address] Phone Care Team Providers Care Rail Switchman Name Role Phone Vikash Isabel MD Primary Care Provider [phone] Encounter Details Date Type Department Care Team (Late st Contact Info) Description 06/03/2024 Documentation Only [facility] [address] [place] [address] [place]vonne Andersen [place] [address] [place] [phone] Social History Tobacco Use Types Packs/Day Years [...] [facility] [address] [facility] [place] [address] Vinicius Simons MD [address] [place] [address] [place] [address] documented as of this encounter Visit Diagnoses Not on filedocumented in this encounter Care Teams Rail Switchman Relationship Specialty Start Date End Date Vikash Isabel MD [address] [place] [address] [phone] PCP - General Internal Medicine 12/03/22 documented as of this encounter
--- OUTSIDE RECORDS SUMMARY | 2025-07-24 09:17 | XMS_ITS | Encounter Summary ---
Author Organization [facility] [place], Address [address] [place] [address] Phone Care Team Providers Care Compounder Name Role Phone Vikash Isabel MD Primary Care Provider [phone] Reason for Visit * Reason Comments Med Refill Encounter Details Date Type Department Care Team (Late Contact Info) Description 08/01/2020 Refill [facility] [address] [place] [phone] Vinicius Simons MD [address] [place] [address] [place] [address] Social History Tobacco Use Types [...] Department Care Team (Late Contact Info) Description 10/03/2025 10:20 AM EST Office Visit [facility] [place], [address] [facility] [place] [phone] Vinicius Simons MD [address] [place] [address] [place] [address] documented as of this encounter Visit Diagnoses Not on filedocumented in this encounter Care Teams Compounder Relationship Specialty Start Date End Date Vikash Isabel MD [address] [place] [phone] PCP - General Internal Medicine 12/03/22 documented as of this encounter
--- OUTSIDE RECORDS SUMMARY | 2025-07-24 09:17 | XMS_ITS | Encounter Summary ---
Author Organization [facility], Address [address] [place] [address] Phone Care Team Providers Care Sheet Metal Assembler Name Role Phone Vikash Isabel MD Primary Care Provider [phone] Encounter Details Date Type Department Care Team (Late st Contact Info) Description 06/04/2022 Documentation Only [facility] [address] [place] [address] Vinicius Simons MD [address] [place] [address] [place] [address] Social History Tobacco Use Types [...] Visit [facility] [address] [facility] [place] [address] Vinicius Simons MD [address] [place] [address] [place] [address] documented as of this encounter Visit Diagnoses Not on filedocumented in this encounter Care Teams Sheet Metal Assembler Relationship Specialty Start Date End Date Vikash Isabel MD [address] [place] [phone] PCP - General Internal Medicine 12/03/22 documented as of this encounter
--- OUTSIDE RECORDS SUMMARY | 2025-07-24 09:17 | XMS_ITS | Encounter Summary ---
Author Organization [facility] [place], Address [address] [place] [address] Phone Care Team Providers Care Loop Machine Operator Name Role Phone Vikash Isabel MD Primary Care Provider [phone] Reason for Visit * Reason Comments Med Refill Encounter Details Date Type Department Care Team (Late Contact Info) Description 07/23/2021 Refill [facility] [address] [place] [address] Vinicius Simons MD [address] [place] [address] [place] [address] Social History Tobacco Use Types [...] Visit [facility] [place], [address] [facility] [place] [address] Vinicius Simons MD [address] [place] [address] [place] [address] documented as of this encounter Visit Diagnoses Not on filedocumented in this encounter Care Teams Loop Machine Operator Relationship Specialty Start Date End Date Vikash Isabel MD [address] [place] [address] [phone] PCP - General Internal Medicine 12/03/22 documented as of this encounter
--- OUTSIDE RECORDS SUMMARY | 2025-07-24 09:17 | XMS_ITS | Encounter Summary ---
Author Organization [facility], Address [address] [place] [address] Phone Care Team Providers Care University Teacher Name Role Phone Vikash Isabel MD Primary Care Provider [phone] Reason for Visit * Reason Comments Med Refill Encounter Details Date Type Department Care Team (Late Contact Info) Description 05/15/2020 Refill [facility] [address] [place] [phone] Vinicius Simons MD [address] [place] [address] [place] [phone] Social History Tobacco Use Types Packs/Day Years Used Date Smoking Tobacco: Former Comments Unknown Sex and Gender Information Value Date Recorded Sex Assigned at Not on file Legal Sex Female 4:34 PM EST Gender Identity Not on file Sexual Orientation Not on file documented as of this encounter Plan of Treatment Upcoming Encounters Date Type Department Care Team ([facility] Contact Info) Description 10/03/2025 10:20 AM EST Office Visit [facility] [place], [address] [facility] [place] [phone] Vinicius Simons MD [address] [place] [address] [place] [address] documented as of this encounter Visit Diagnoses Not on filedocumented in this encounter Care Teams University Teacher Relationship Specialty Start Date End Date Vikash Isabel MD [address] [place] [address] [phone] PCP - General Internal Medicine 12/03/22 documented as of this encounter
--- OUTSIDE RECORDS SUMMARY | 2025-07-24 09:17 | XMS_ITS | Encounter Summary ---
Author Organization [facility] [place] [facility], Address [address] [place] [address] Phone Care Team Providers Care Quality Process Auditor Name Role Phone Vikash Isabel MD Primary Care Provider [phone] Reason for Visit * Reason Comments Med Refill Encounter Details Date Type Department Care Team (Late Contact Info) Description 06/15/2021 Refill [facility] [address] [place] [address] Vinicius Simons MD [address] [place] [address] [place] [address] Social History Tobacco Use Types [...] Visit [facility] [place], [address] [facility] [place] [address] Vinicius Simons MD [address] [place] [address] [place] [address] documented as of this encounter Visit Diagnoses Not on filedocumented in this encounter Care Teams Quality Process Auditor Relationship Specialty Start Date End Date Vikash Isabel MD [address] [place] [address] [phone] PCP - General Internal Medicine 12/03/22 documented as of this encounter
--- OUTSIDE RECORDS SUMMARY | 2025-07-24 09:17 | XMS_ITS | Encounter Summary ---
Author Organization [facility] [place], Address [address] [place] [address] Phone Care Team Providers Care Pharmacy Student Name Role Phone Vikash Isabel MD Primary Care Provider [phone] Reason for Visit * Reason Comments Med Refill Encounter Details Date Type Department Care Team (Late Contact Info) Description 06/24/2022 Refill [facility] [address] [place] [address] Vinicius Simons MD [address] [place] [address] [place] [address] Social History Tobacco Use Types [...] Visit [facility] [place], [address] [facility] [place] [address] Vinicius Simons MD [address] [place] [address] [place] [address] documented as of this encounter Visit Diagnoses Not on filedocumented in this encounter Care Teams Pharmacy Student Relationship Specialty Start Date End Date Vikash Isabel MD [address] [place] [address] [phone] PCP - General Internal Medicine 12/03/22 documented as of this encounter
--- OUTSIDE RECORDS SUMMARY | 2025-07-24 09:17 | XMS_ITS | Encounter Summary ---
Author Organization [facility] [place], Address [address] [place] [address] Phone Care Team Providers Care Film Sorter Name Role Phone Vikash Isabel MD Primary Care Provider [phone] Encounter Details Date Type Department Care Team (Late st Contact Info) Description 06/04/2022 Documentation Only [facility] [address] [place] [address] Vinicius Simons MD [address] [place] [address] [place] [address] Social History Tobacco Use Types [...] Visit [facility] [address] [place] [address] Vinicius Simons MD [address] [place] [address] [place] [address] documented as of this encounter Visit Diagnoses Not on filedocumented in this encounter Care Teams Film Sorter Relationship Specialty Start Date End Date Vikash Isabel MD [address] [place] [phone] PCP - General Internal Medicine 12/03/22 documented as of this encounter
--- OUTSIDE RECORDS SUMMARY | 2025-07-24 09:17 | XMS_ITS | Encounter Summary ---
Author Organization [facility] [place], Address [address] [place] [address] Phone Care Team Providers Care Analysis Reporting Developer Name Role Phone Vikash Isabel MD Primary Care Provider [phone] Reason for Visit * Reason Comments Med Refill Encounter Details Date Type Department Care Team (Late Contact Info) Description 09/02/2021 Refill [facility] [address] [place] [phone] Vinicius Simons MD [address] [place] [address] [place] [address] Social History Tobacco Use Types [...] Visit [facility] [place], [address] [facility] [place] [address] Vinicius Simons MD [address] [place] [address] [place] [address] documented as of this encounter Visit Diagnoses Not on filedocumented in this encounter Care Teams Analysis Reporting Developer Relationship Specialty Start Date End Date Vikash Isabel MD [address] [place] [address] [phone] PCP - General Internal Medicine 12/03/22 documented as of this encounter
--- OUTSIDE RECORDS SUMMARY | 2025-07-24 09:17 | XMS_ITS | Clinical Summary ---
Author Organization [facility], Address [address] [place] [address] [place] [address] Phone Care Team Providers Care Fishing Vessel Mate Name Role Phone Vikash Isabel MD Primary Care Provider [phone] Allergies Active Allergy Reactions Criticality Noted Date [...] 3 022 Active Blood Glucose Monitoring Suppl (Conversion Sound Confirm Glucose Monitor) w/Device kit 1 Units [...] Visit [facility] [place], [address] [facility] [place] [address] Vinicius Simons MD Stage 3a chronic kidney disease (HCC) (Primary Dx) from Last 3 Months Immunizations Immunization Administration Dates Next Due Influenza, Quadrivalent, With Preservative 09/21,09/21/2018 Influenza, Recombinant, Quadrivalent, Pf 022 Pneumococcal Conjugate Pcv 20 08/18/2022 Shingrix 09/23/2022 Td 02/15/1999 Tdap 11/07/2016,12/13/2008 Family History Medical History Relation Comments Heart disease Father [place] between the a ges of 50 to 60 Stroke Father Hypertension Mother Heart disease Sibling 1 Brother [place] betwe en the ages of 50 to [...] Visit [facility] [place], [address] [facility] [place] [address] Vinicius Simons MD [address] [facility] [place] [address] Health Maintenance Due Date Last Done Comments [...] AM EDT) Hemoglobin A1C 6.8(H) (4-6) % [place] [address] Comment: HEMOGLOBIN A1C(%) GLUCOSE CONTROL INDEX <6% EXCELLENT 6-7% VERY GOOD 7-8% GOOD 8-10% FAIR >10% POOR Hemoglobin (Hb) A1c testing is performed by S[employer] Cori-quant immunoassay. Any cause of shortened erythrocyte survival will reduce exposure of erythrocytes to glucose with a consequent decrease in Hb A1c (%). Testing performed or reported by ~[facility], ~a Service of [facility], ~[address] [place] [id number]~ Triston Lane MD, PhD, Temperature Inspector 06/14/2018 9:07 AM EDT us Vinicius Simons MD LAB BLOOD ORDERABLES Final Re sult [id number] from Last 3 Months or Most Recently Relevant to Health Maintenance Insurance [facility] Care Dual SNP ([id number]) Care Teams Fishing Vessel Mate Relationship Specialty Start Date End Date Vikash Isabel MD [address] [place] [address] [place] [address] PCP - General Internal Medicine 12/03/22
--- OUTSIDE RECORDS SUMMARY | 2025-07-24 09:17 | XMS_ITS | Encounter Summary ---
Author Organization [facility] [place], Address [address] [place] [address] Phone Care Team Providers Care Reconciliation Coordinator Name Role Phone Vkiash Isabel MD Primary Care Provider [phone] Reason for Visit * Reason Comments Med Refill Encounter Details Date Type Department Care Team (Late Contact Info) Description 06/16/2020 Refill [facility] [address] [place] [phone] Vinicius Simons MD [address] [place] [address] Dr. [place] [phone] Social History Tobacco Use Types Packs/Day Years [...] Visit [facility] [place], [address] [facility] [place] [phone] Vinicius Simons MD [address] [place] [address] Dr. [place] [address] documented as of this encounter Visit Diagnoses Not on filedocumented in this encounter Care Teams Reconciliation Coordinator Relationship Specialty Start Date End Date Vikash Isabel MD [address] [place] [address] [phone] PCP - General Internal Medicine 12/03/22 documented as of this encounter
--- OUTSIDE RECORDS SUMMARY | 2025-07-24 09:17 | XMS_ITS | Encounter Summary ---
Author Organization [facility], Address [address] [place] [address] Phone Care Team Providers Care Workers Compensation Analyst Name Role Phone Vikash Isabel MD Primary Care Provider [phone] Reason for Visit * Reason Comments Med Refill Encounter Details Date Type Department Care Team (Late Contact Info) Description 07/17/2021 Refill [facility] [address] [place] [address] Vinicius Simons MD [address] [place] [address] [place] [address] Social History Tobacco Use Types [...] Visit [facility], [address] [facility] [place] [address] Vinicius Simons MD [address] [place] [address] [place] [address] documented as of this encounter Visit Diagnoses Not on filedocumented in this encounter Care Teams Workers Compensation Analyst Relationship Specialty Start Date End Date Vikash Isabel MD [address] [place] [address] [phone] PCP - General Internal Medicine 12/03/22 documented as of this encounter
--- OUTSIDE RECORDS SUMMARY | 2025-07-24 09:17 | XMS_ITS | Encounter Summary ---
Author Organization [facility], Address [address] [place] [address] Phone Care Team Providers Care Saw Superintendent Name Role Phone Vkiash Isabel MD Primary Care Provider [phone] Reason for Visit * Reason Comments Med Refill Encounter Details Date Type Department Care Team (Late Contact Info) Description 04/15/2020 Refill [facility] [address] [place] [phone] Vinicius Simons MD [address] [place] [address] [place] [phone] Social History Tobacco Use Types Packs/Day Years Used Date Smoking Tobacco: Former Comments Unknown Sex and Gender Information Value Date Recorded Sex Assigned at Not on file Legal Sex Female 4:34 PM EST Gender Identity Not on file Sexual Orientation Not on file documented as of this encounter Plan of Treatment Upcoming Encounters Date Type Department Care Team ([facility] Contact Info) Description 10/03/2025 10:20 AM EST Office Visit [facility], [address] [facility] [place] [phone] Vinicius Simons MD [address] [place] [address] [place] [address] documented as of this encounter Visit Diagnoses Not on filedocumented in this encounter Care Teams Saw Superintendent Relationship Specialty Start Date End Date Vikash Isabel MD [address] [place] [address] [phone] PCP - General Internal Medicine 12/03/22 documented as of this encounter
--- OUTSIDE RECORDS SUMMARY | 2025-07-24 09:17 | XMS_ITS | Clinical Summary ---
Author Organization [facility] Address [address] [place] [address] Phone Care Team Providers Care Buyer Broker Name Role Phone Vikash Isabel MD Primary Care Provider [phone] Allergies Active Allergy Reactions Criticality Noted Date [...] TABLET DAILY Active tirzepatide, weight loss, (Zepbound) 7.5 mg/0.5 mL injectionIndicat ions:Class 3 severe obesity without serious comorbidity with body mass index (BMI) of 40.0 to 44.9 in adult, unspecified obesity type ([facility] V24, [facility] V28) Inject 0.5 mL (7.5 mg total) under the skin every 7 (seven) days for 4 doses. 2 mL 5 07/12/20 25 Active Problems Problem Noted Date Diagnosed Date Type 2 diabetes mellitus wit h cataract ([facility] V24, [facility] V28) 08/18/2024 Class 3 severe obesity with serious comorbidity and body mass index (BMI) of 45.0 to 49.9 in adult ([facility] V24, [facility] V28) 08/18/2024 Primary hyperparathyroidism ([facility] V24) 2021 Acute nontraumatic kidney injury ([facility] V24) 0 11/27/2021 Cataract 05/10/2021 Severe obesity (BMI >= 40) ([facility] V24, [facility] V28) 03/05/2021 Stage 3a chronic kidney disease ([facility] V24, [facility] V28) 01/13/2020 Type 2 diabetes mellitus ([facility] V24, [facility] V 28) 09/21/2018 Esophageal reflux 04/13/2007 Pure hypercholesterolemia 01/28/2007 Renal artery stenosis ([facility] V24) 04/25/2006 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 Overview [...] 06/28/2025 10:00 AM EDT Nutrition Bariatric Surgery - [address] [place] [address] Class 3 severe obesity with serious comorbidity and body mass index (BMI) of 45.0 to 49.9 in adult, unspecified obesity type ([facility] V24, [facility] V28) (Primary Dx) 06/20/2025 9:15 AM EDT Office Visit Bariatric Surgery [facility] [address] [facility] [address] [place] [address] Sugey Hughes MD Class 3 severe obesity without serious comorbidity with body mass index (BMI) of 40.0 to 44.9 in adult, unspecified obesity type ([facility] V24, [facility] V28) (Primary Dx) from Last 3 Months Immunizations Name Administration Dates Next Due Td Tetanus diptheria (Tdvax) 7yo and older 02/15 Tdap Tetanus diptheria acell ular pertussis (Boostrix; Adacel) 7yo and older 12/13/2008 Surgical History Surgery Date Site/Laterality Comments OTHER SURGICAL HISTORY 01/11/1999 PROCEDURE: CO HENDRICKSON FACETECTOMY & FORAMOTOMY 1 VRT SGM LUMBAR; COMMENT: laminectomy L5-S1 OTHER SURGICAL HISTORY 10/16/2009 PROCEDURE: MAMMOGRAM COLONOSCOPY 05/16/2009 PROCEDURE: CO COLONOSCOPY STOMA DX INCLUDING COLLJ SPEC SPX; [...] obesity with BMI of 5 0.0-59.9, adult ([facility] V24, [facility] V28) 05/10/2021 DX:Morbid obesity wit h BMI of 50.0-59.9, adult ([facility]) Type 2 diabetes mellitus wit h cataract ([facility] V24, [facility] V28) DX:Type 2 diabetes mellitus with cataract ([facility]) Cataract 05/10/2021 DX:Cataract Family History [...] 9:00 AM EST Nutrition Bariatric Surgery - [place] [address] [facility] [address] [place] [phone] Kaylyn Kruse, RD 175 [facility] [address] [place] [address] 12/12/2025 9:00 AM EST Office Visit Bariatric Surgery - [address] [place] [address] Sugey Hughes MD [address] [place] [phone] Health Maintenance Due Date Last Done Comments Breast Cancer Screening 1959 Diabetes: Annual Foot Exam 1969 Diabetes: Annual Retina Eye Exam 1969 Colorectal Cancer Screening: Colonoscopy 10/25/2022 Hepatitis C Screening 10/25/2022 Medicare Annual Wellness Visit 10/25/2022 Osteoporosis Screening (Bone Density Screening) 10/25/2022 Social Influencers of Health Screening 10/25/2022 Diabetes: Annual Urine Albumin-Creatinine Ratio (uACR) 10/29/2022 12/13/2008 Falls Risk Assessment 2024 Depression Screening 11/16/2024 Diabetes: Blood Sugar Control Test (HGBA1C) 06/06/2025 12/07/2024, 03/07/2024, 07/02/2020, Additional history exists COVID-19 Vaccine ( season) 2025 09/23/2024, 03/10/2023, 04/08/2021, Additional history exists Influenza Vaccine (#1) 2025 [...] * Annual BMP Blood Test (03/31/2022) Pathologist [facility] Annual BMP Blood Test Abstracted Historical Provider HEALTH MAINTENANCE Final Result * Hemoglobin A1c (07/02/2020) [facility] Hemoglobin A1C 6.3 <=6.5 % Blood Venous blood specimen / Unknown Historical Provider LAB BLOOD ORDERABLES Alvina l Result * Lipid panel (07/02/2020) [facility] LDL/HDL Ratio 3 0 - 4 Triglycerides 148 0 - 150 mg/dL Cholesterol 134 0 - 200 mg/dL HDL 41 >=40 mg/dL LDL Cholesterol 64 0 - 100 mg/dL Blood Venous blood specimen / Unknown us Historical Provider LAB BLOOD ORDERABLES Alvina l Result * Urine Albumin Creatinine Ratio (12/13/2008) Urine Albumin Creatinine Ratio Abstracted us Historical Provider HEALTH MAINTENANCE Final Result from Last 3 Months or Most Recently Relevant to Health Maintenance Insurance [facility] MEDIC[facility] Member Subscriber Plan / Payer (Ef fective 2024-Present) Name:YESSY MILLER Relation to Subscriber:Self Name:Yessy Miller Payer ID:[id number] Group ID:[id number] Type:Not on file Address: [place] [address] [address] [address] Care Teams Buyer Broker Relationship Specialty Start Date End Date Vikash Isabel MD [address] [place] PCP - General Internal Medicine 07/30/21
--- OUTSIDE RECORDS SUMMARY | 2025-07-24 09:17 | XMS_ITS | Encounter Summary ---
Author Organization [facility], Address [address] [place] [address] Phone Care Team Providers Care Plumbing Mechanic Name Role Phone Vikash Isabel MD Primary Care Provider [phone] Reason for Visit * Reason Comments Med Refill Encounter Details Date Type Department Care Team (Late Contact Info) Description 03/26/2020 Refill [facility] [address] [place] [phone] Vinicius Simons MD [address] [place] [address] [place] [phone] Social History Tobacco Use Types Packs/Day Years Used Date Smoking Tobacco: Former Comments Unknown Sex and Gender Information Value Date Recorded Sex Assigned at Not on file Legal Sex Female 4:34 PM EST Gender Identity Not on file Sexual Orientation Not on file documented as of this encounter Plan of Treatment Upcoming Encounters Date Type Department Care Team ([facility] Contact Info) Description 10/03/2025 10:20 AM EST Office Visit [facility], [address] [facility] [place] [phone] Vinicius Simons MD [address] [place] [address] [place] [address] documented as of this encounter Visit Diagnoses Not on filedocumented in this encounter Care Teams Plumbing Mechanic Relationship Specialty Start Date End Date Vikash Isabel MD [address] [place] [address] [phone] PCP - General Internal Medicine 12/03/22 documented as of this encounter
--- OUTSIDE RECORDS SUMMARY | 2025-07-24 09:17 | XMS_ITS | Encounter Summary ---
Author Organization [facility], Address [address] [place] [address] Phone Care Team Providers Care Machine Filler Name Role Phone Vikash Isabel MD Primary Care Provider [phone] Reason for Visit * Reason Comments Med Refill Encounter Details Date Type Department Care Team (Late Contact Info) Description 02/12/2021 Refill [facility] [address] [place] [address] Vinicius Simons MD [address] [place] [address] [place] [address] Social History Tobacco Use Types [...] Visit [facility], [address] [facility] [place] [address] Vinicius Simons MD [address] [place] [address] [place] [address] documented as of this encounter Visit Diagnoses Not on filedocumented in this encounter Care Teams Machine Filler Relationship Specialty Start Date End Date Vikash Isabel MD [address] [place] [address] [phone] PCP - General Internal Medicine 12/03/22 documented as of this encounter
--- OUTSIDE RECORDS SUMMARY | 2025-07-24 09:17 | XMS_ITS | Encounter Summary ---
Author Organization [facility], Address [address] [place] [address] Phone Care Team Providers Care Auto Body Repairer Name Role Phone Vikash Isabel MD Primary Care Provider [phone] Reason for Visit * Reason Comments Med Refill Encounter Details Date Type Department Care Team (Late Contact Info) Description 07/08/2023 Refill [facility] [address] [place] [address] Vinicius Simons MD [address] [place] [address] [place] [address] Social History Tobacco Use Types [...] [facility], [address] [facility] [place] [address] Vinicius Simons MD [address] [place] [address] [place] [address] documented as of this encounter Visit Diagnoses Not on filedocumented in this encounter Care Teams Auto Body Repairer Relationship Specialty Start Date End Date Vikash Isabel MD [address] [place] [address] [phone] PCP - General Internal Medicine 12/03/22 documented as of this encounter
--- OUTSIDE RECORDS SUMMARY | 2025-07-24 09:18 | XMS_ITS | Encounter Summary ---
Author Organization [facility], Address [address] [place] [address] Phone Care Team Providers Care Digital Media Analyst Name Role Phone Vikash Isabel MD Primary Care Provider [phone] Reason for Visit * Reason Comments Med Refill Encounter Details Date Type Department Care Team (Late Contact Info) Description 02/14/2020 Refill [facility] [address] [place] [phone] Vinicius Simons MD [address] [place] [address] [place] [phone] Social History Tobacco Use Types Packs/Day Years [...] Visit [facility], [address] [facility] [place] [phone] Vinicius Simons MD [address] [place] [address] [place] [address] documented as of this encounter Visit Diagnoses Not on filedocumented in this encounter Care Teams Digital Media Analyst Relationship Specialty Start Date End Date Vikash Isabel MD [address] [place] [address] [phone] PCP - General Internal Medicine 12/03/22 documented as of this encounter
== END 2025-07-24 08:23 | disposition home or self-care (01) ==
LOC: HO.XRAY 08:22
PROVIDERS: PCP Internal Medicine; Visit Provider Internal Medicine
DX: M25.511 Pain in right shoulder (principal); G89.29 Other chronic pain
CPT/HCPCS: 73030

== ENCOUNTER → 2025-07-24 08:25 | Outpatient (BNV) | payer OTHER, SELFPAY | PROVIDERS: PCP Internal Medicine; Visit Provider Radiology Diagnostic Radiology | DX: M19.011 Primary osteoarthritis, right shoulder (principal) | CPT/HCPCS: 73030 ==

== ENCOUNTER 2025-10-05 10:38 | Outpatient (AMB) | payer OTHER, SELFPAY ==
--- NOTE | 2025-10-05 10:41 | MHC.OFFVIS ---
Vital Signs 10/05/25 10:42 Height 5 ft 7 in Weight 260 lb BMI 40.7 Intake Visit Reasons: Right shoulder pain and weakness Intake Note: Yessy is a 65 year old female right hand dominant who presents with complaints of progressively worsening right shoulder pain and weakness. The patient describes her pain as sharp in nature. Most of the pain is along the lateral aspect of her shoulder. She has tried Tylenol and anti-inflammatory medicines which gave her minimal relief. She has failed the last 6 weeks of conservative treatment which include physical therapy exercises and a home exercise program. The patient reports difficulty lifting her right hand above shoulder height. At this point her right shoulder pain and weakness or interfering with her activities of daily living and her ability to sleep well through the night. Allergies celecoxib (From Celebrex) Allergy (Severe, Verified 10/05/25 10:47) Hives levofloxacin (From Levaquin) Allergy (Severe, Verified 10/05/25 10:47) Hives morphine Allergy (Severe, Verified 10/05/25 10:47) Hives Medication List - Last Reconciled 10/05/25 by Remy Ly MD allopurinol 300 mg PO DAILY amlodipine 10 mg PO DAILY empagliflozin (Jardiance) 10 mg PO DAILY metoprolol succinate ER 100 mg PO DAILY omeprazole 20 mg PO BID 30 days simvastatin 10 mg PO BEDTIME [facility] Medical History (Updated 10/05/25 @ 10:59 by Remy Ly MD) Hx of gout Hx of hyperlipidemia HTN (hypertension) Hx of backache Kidney atrophy Surgical History History of esophagogastroduodenoscopy (EGD) History of sleeve gastrectomy History of back surgery Hx of colonoscopy Family History Brother Diabetes Son Diabetes Sister Diabetes Social History Household Members: Family Alcohol intake: current Alcohol intake frequency: does not drink Patient Tobacco Use Status: Never used Tobacco Physical Exam Vital Signs: BMI result Body Mass Index 40.7 Const Other: Well-nourished well-developed very friendly female awake alert and oriented x3 in no acute distress Extrem Other: Right shoulder examination shows decreased range of motion when compared to her left shoulder, 4+ out of 5 strength with supraspinatus testing, positive impingement signs, tenderness over her acromioclavicular joint, no instability Results Reviewed Results Reviewed: X-rays of the patient's right shoulder show severe acromioclavicular joint narrowing, a type 2 acromion, no acute bony abnormalities Assessment & Plan Assessment & Plan (1) Rotator cuff insufficiency of right shoulder: Code(s): M25.311 - Other instability, right shoulder Category: Medical Plan Ms. Miller presents with progressively worsening right shoulder pain and weakness due to impingement syndrome and possible rotator cuff tearing. Thus, I will send the patient for an MRI of her right shoulder for further evaluation. I will see her back once the MRI is completed to discuss the findings and treatment options. Feel free to call me at any time should questions regarding her orthopedic management arise. Thank you very much for asking me to see this very friendly patient. I spent 21 minutes in reviewing the patient's records and imaging studies, seeing the patient and documenting in the medical record. Orders: Orders MR shoulder RT wo con 10/06/25 M25.311 - Other instability, right shoulder Coding Level of Care Code New Pt Level 3 (69855) Complex EM visit Add On G2211 Diagnoses Rotator cuff insufficiency of right shoulder M25.311
[2025-10-05 10:42] VITALS: BMI 40.7
== END 2025-10-05 10:58 | disposition home or self-care (01) ==
LOC: HO.HOS 10:39
PROVIDERS: PCP Internal Medicine; Visit Provider Orthopaedic Surgery
DX: M25.311 Other instability, right shoulder (principal)
CPT/HCPCS: 99203; G2211

== ENCOUNTER → 2025-10-05 10:38 | Outpatient (BNVA) | payer OTHER, SELFPAY | PROVIDERS: PCP Internal Medicine; Visit Provider Orthopaedic Surgery | DX: M25.511 Pain in right shoulder (principal); M25.311 Other instability, right shoulder | CPT/HCPCS: 99202 ==

== ENCOUNTER 2025-10-31 07:39 | Outpatient (REF) | payer OTHER, SELFPAY ==
--- NOTE | ~2025-10-31 | MR_ITS ---
EXAMINATION: MR SHOULDER WITHOUT CONTRAST, RIGHT CLINICAL INFORMATION: Shoulder instability COMPARISON: X-ray 07/24/2025 TECHNIQUE: MRI of the shoulder without contrast was performed on a high-field scanner. FINDINGS: ROTATOR CUFF: Moderate supraspinatus tendinosis. There is bursal surface fraying in the anterior/mid fibers. There is a tear of the posterior supraspinatus and anterior infraspinatus tendon. The tear overall measures 1.5 cm AP, 3 cm medial-lateral. Distally, the tear is high-grade/full-thickness measuring approximately 1.4 cm medial-lateral. The more proximal portion of the tear is articular sided in nature. Moderate infraspinatus tendinosis. Teres minor is intact. Subscapularis is intact. No muscle atrophy or fatty infiltration. BICEPS: Mild tendinosis of the intra-articular long head biceps tendon. CORACOACROMIAL ARCH: The undersurface of the acromion is flat with no subacromial spur. Mild acromioclavicular arthritis. Mild subacromial subdeltoid bursitis. LABRUM/CAPSULE: Superior labral degeneration with fraying/ill-defined tear. Inferior capsule is intact GLENOHUMERAL JOINT/MARROW: Mild reactive/degenerative edema and degenerative cyst in the greater tuberosity. No acute fracture. No high-grade chondral loss. Small effusion. Nonspecific subcentimeter axillary lymph nodes. MR/MR shoulder RT wo con IMPRESSION: 1. Moderate supraspinatus tendinosis. Bursal surface fraying in the anterior/mid tendon. 1.5 x 3 cm tear of the posterior fibers of the supraspinatus and anterior fibers infraspinatus. The tear is high-grade/full-thickness distally measuring 1.4 cm medial-lateral. Articular sided tearing of the more proximal portion of the tear. 2. Moderate infraspinatus tendinosis. 3. Mild intra-articular long head biceps tendinosis. 4. Superior labral degeneration with fraying/ill-defined tear. 5. Mild acromioclavicular arthritis. Mild subacromial subdeltoid bursitis. 6. Small glenohumeral joint effusion. Electronically signed by: Jose Da Silva MD 11/01/2025 01:07 PM [facility]
--- OUTSIDE RECORDS SUMMARY | 2025-10-31 07:43 | XMS_ITS | Encounter Summary ---
Author Organization [employer] Address [address] [place] [address] Care Team Providers Care Senior Java Software Developer Name Role Phone Vikash Isabel MD Primary Care Provider [phone] Reason for Visit * Reason Comments Med Refill Encounter Details Date Type Department Care Team ([facility] st Contact Info) Description 10/30/2025 Refill [facility] [address] [place], [place] [phone] Vikash Isabel MD [address] [place], [place] [phone] Type 2 diabetes mellitus without complication, with long-term current use of insulin (HCC) Social History Tobacco Use Types Packs/Day Years [...] on file documented as of this encounter Goals Goal Patient Goal Type Associated Problems Recent Progress Patient-Stated? Author Help patients manage their type 2 diabetes Care Plan Help patients manage their type 2 diabetes Archana Chino LPN Weekly blood pressure task Care Plan Weekly blood pressure task Archana Chino LPN Help patients manage their type 2 diabetes Care Plan Help patients manage their type 2 diabetes Archana Chino LPN Patient has chronic kidney disease Care Plan Patient has chronic kidney disease Archana Chino LPN Weekly blood pressure task Care Plan Weekly blood pressure task Archana Chino LPN Patient has chronic kidney disease Care Plan Patient has chronic kidney disease Archana Chino LPN documented as of this encounter Visit Diagnoses Diagnosis Type 2 diabetes mellitus without complication, with long-term current use of insulin (HCC) documented in this encounter Additional Health Concerns Active Problems Noted Date Diagnosed Date Help patients manage their type 2 diabetes 10/23 Weekly blood pressure task 10/23/2025 Help patients manage their type 2 diabetes 10/23 Patient has chronic kidney disease 10/23/2025 Weekly blood pressure task 10/23/2025 Patient has chronic kidney disease 10/23/2025 Assessment Noted Time PHQ-9 Depression Total Score: 0 12/07/19 25 9:41 AM EST documented as of this encounter Care Teams Senior Java Software Developer Relationship Specialty Start Date End Date Vikash Isabel MD [address] [place] [id number] PCP - General Internal Medicine 11/16/18 documented as of this encounter
--- OUTSIDE RECORDS SUMMARY | 2025-10-31 07:43 | XMS_ITS | Clinical Summary ---
Author Organization [employer] Address [address] [place] [address] 7 [place] [address] Care Team Providers Care Web Content Executive Name Role Phone Vikash Isabel MD Primary Care Provider [phone]- [phone] Allergies Active Allergy Reactions Criticality Noted Date Comments Cephalexin Rash Low 01/13/2020 Cephalosporins Levofloxacin Rash Low Morphine Other Medications GaviLyte-C 240 g solution MIX THEN DRINK 8 OUNCES BY MOUTH EVERY 10 MINUTES UNTIL FECAL EFFLUENT IS CLEAR 2022 Active colchicine 0.6 MG tablet Take 1 tablet (0.6 mg) by mouth in the morning. 30 tablet 2023 Active Dextrose, Diabetic Use, (glucose) 1 g chewable tabletIndications:Type 2 diabetes mellitus without complication, with long-term current use of insulin (HCC) take 1 Tablet by Oral route as needed for hypoglycemia ( BG < 70 mg/dl) 50 tablet 2023 Active fexofenadine (Pebbles Allergy) 60 MG tabletIndications:Seas onal allergies Take 1 tablet (60 mg) by mouth every 12 (twelve) hours. 180 tablet 3 2023 Active amLODIPine (Norvasc) 10 MG tabletIndications:Esse ntial hypertension Take 1 tablet (10 mg) by mouth Once per day. 90 tablet 2024 Active aspirin (EQ Aspirin Adult Low Dose) 81 MG EC tabletIndications:Esse ntial hypertension Take 1 tablet (81 mg) by mouth Once per day. 30 tablet 2024 Active metoprolol succinate XL (Toprol-XL) 100 MG 24 hr tabletIndications:Esse ntial hypertension Take 1 tablet (100 mg) by mouth Once per day. 90 tablet 3 2024 Active omeprazole (PriLOSEC) [address] capsuleIndications:Gas troesophageal reflux disease without esophagitis Take 1 capsule (20 mg) by mouth Once per day. Do not crush or chew. 90 capsule 11 2024 Active empagliflozin (Jardiance) 10 MGIndications:Type 2 diabetes mellitus without complication, with long-term current use of insulin ([facility]) Take 1 tablet (10 mg) by mouth in the morning. 90 tablet 3 2024 Active simvastatin (Zocor) 20 MG tabletIndications:Pure hypercholesterolemia Take 1 tablet by mouth in the evening 90 tablet 1 2024 Active FREESTYLE LITE test stripIndications:Type 2 diabetes mellitus with both eyes affected by mild nonproliferative retinopathy and macular edema, with long-term current use of insulin ([facility]) USE 1 STRIP TO CHECK BLOOD GLUCOSE THREE TIMES DAILY 100 each 11 2024 Active cholecalciferol (Vitamin D-3) 25 MCG (1000 UT) tabletIndications:Luzma min deficiency Take 1 tablet (25 mcg) by mouth in the morning. 90 tablet 2024 Active insulin pen needle (B-D ULTRAFINE III SHORT PEN) 31G X 8 mm miscIndications:Type 2 diabetes mellitus without complication, with long-term current use of insulin ([facility]) USE 1 PEN NEEDLE 4 TIMES DAILY 100 each 11 2024 Active NovoLOG FLEXPEN 100 UNIT/ML penIndications:Type 2 diabetes mellitus without complication, with long-term current use of insulin ([facility]) INJECT 12 UNITS SUBCUTANEOUSLY BEFORE EACH MEAL 15 mL 2024 Active allopurinol (Zyloprim) 300 MG tabletIndications:Gout , unspecified cause, unspecified chronicity, unspecified site TAKE 1 TABLET BY MOUTH IN THE MORNING 30 tablet 2024 Active lisinopril-hydroCHLORO thiazide 20-12.5 MG tabletIndications:Esse ntial hypertension TAKE 2 TABLETS BY MOUTH ONCE DAILY 180 tablet 3 2024 Active Lantus SoloStar 100 UNIT/ML penIndications:Type 2 diabetes mellitus without complication, with long-term current use of insulin ([facility]) INJECT 10 UNITS SUBCUTANEOUSLY AT BEDTIME 15 mL 2 2024 Active NovoLOG FLEXPEN 100 UNIT/ML penIndications:Type 2 diabetes mellitus without complication, with long-term current use of insulin ([facility]) INJECT 12 UNITS SUBCUTANEOUSLY BEFORE EACH MEAL 15 mL 10/20 Discontinued lisinopril-hydroCHLORO thiazide 20-12.5 MG tabletIndications:Esse ntial hypertension TAKE 2 TABLETS BY MOUTH ONCE DAILY 180 tablet 3 10/23 Discontinued( Reorder (will not trigger notification to Pharmacy)) Lantus SoloStar 100 UNIT/ML penIndications:Type 2 diabetes mellitus without complication, with long-term current use of insulin ([facility]) Inject 10 Units under the skin at bedtime. 3 mL 11 10/30 Discontinued allopurinol (Zyloprim) 300 MG tabletIndications:Gout , unspecified cause, unspecified chronicity, unspecified site TAKE 1 TABLET BY MOUTH IN THE MORNING 30 tablet 10/23 Discontinued Active Problems Problem Noted Date Diagnosed Date Primary hyperparathyroidism 11/27/2021 Acute renal failure syndrome 11/27/2021 Severe obesity (BMI >= 40) ([facility]) 03/05/2021 Stage 3a chronic kidney disease ([facility]) 2019 Essential hypertension 01/13/2020 Severe obesity ([facility]) 11/30/2018 Type 2 diabetes mellitus 09/21/2018 Chronic pain syndrome 11/18/2017 Pure hypercholesterolemia 01/28/2007 Renal artery stenosis 04/25/2006 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 Encounters Date Type Department Care Team Description 10/30/2025 Refill [facility] [address] [place] [address] Vikash Isabel MD Type 2 diabetes mellitus without complication, with long-term current use of insulin ([facility]) 10/23/2025 Refill C [facility] [address] [place] [address] Vikash Isabel MD Gout, unspecified cause, unspecified chronicity, unspecified site; Essential hypertension 10/20/2025 Refill [facility] [address] [place] [address] Vikash Isabel MD Type 2 diabetes mellitus without complication, with long-term current use of insulin (HCC) 09/22/2025 Refill [facility] [address] [place] [address] Vikash Isabel MD Gout, unspecified cause, unspecified chronicity, unspecified site 08/20/2025 Refill [facility] [address] [place] [address] Vikash Isabel MD Gout, unspecified cause, unspecified chronicity, unspecified site 08/18/2025 Refill [facility] [address] [place] [address] Vikash Isabel MD Type 2 diabetes mellitus without complication, with long-term current use of insulin (HCC) from Last 3 Months Immunizations Immunization Administration Dates Next Due INFLUENZA VACCINE QUADRIVALE NT RECOMBINANT PRESERVATIVE FREE RIV4 08/18/2022 Influenza injectable quadriv alent IIV4 with preservative 09/21/2019,09/21/2018 Influenza, High Dose Seasonal, Preservative Free 09/23/2024 Pneumococcal Conjugate PCV 20 08/18/2022 RSV Adjuvant 12/30/2024 TD (adult), 2 Lf tetanus tox oid, preservative free, adsorbed 02/15/1999 Tdap 11/07/2016,12/13/2008 Zoster, Recombinant 03/10/2023,09/23/2022 Social History Tobacco Use Types Packs/Day Years Used Date Smoking Tobacco: Former Cigarettes Q uit: 2005 Passive Smoke Exposure: Never Smokeless Tobacco: Never Tobacco Cessation:Counseling Given: Not Answered Alcohol Use Standard Drinks/Week Comments Never 0 [...] Orientation Straight 09/15/2022 10 :22 AM EDT Last Filed Vital Signs Vital Sign Reading Time Taken Comments Blood Pressure 142/74 07/06/2025 9:18 AM EDT Pulse 60 07/06/2025 9:18 AM EDT Temperature 36.8 C (98.3 F) 07/06/2025 9:18 AM EDT Respiratory Rate 14 07/06/2025 9:18 AM EDT Oxygen Saturation 98% 07/06/2025 9:18 AM EDT Inhaled Oxygen Concentration - - Weight 122 kg (270 lb) 07/06/2025 9:18 AM EDT Height 164.5 cm (5' 4.75 ) 07/06/2025 9:18 AM ED T Body Mass Index 45.28 07/06/2025 9:18 AM EDT Plan of Treatment Health Maintenance Due Date Last Done Comments CT Colonography 1959 FIT DNA/Cologuard 1959 FIT 1960 FOBT 1960 Sigmoidoscopy 1960 SDOH Screening 05/31/2025 05/31/2024 COVID-19 Vaccine ( season) 2025 09/23/2024, 03/10/2023, 04/08/2021, Additional history exists Influenza Vaccine (#1) 2025 , 08/18/2022, 09/21/2019, Additional history exists Alcohol/Substance Use Screening 12/07/2025 12/07/2024 Depression Screening 12/07/2025 12/07/2024, 12/07/19 Lipid Panel 12/07/2025 12/07/2024, 11/17, 05/21/2022 Diabetes: Hemoglobin A1C 01/06/2026 025, 12/07/2024, 03/07/2024, Additional history exists Colonoscopy 06/09/2026 Colorectal Cancer Screening 06/09/2026 Eye Exam 06/21/2026 06/21/2025 Diabetes: Foot Exam 07/06/2026 07/06/2025, 07/08/2023, 07/08/2023, Additional history exists Diabetes: Urine Protein Screening 07/06/2026 07/06/2025 Tobacco Screening 07/06/2026 07/06/2025 DTaP/Tdap/Td Vaccines (3 - Td or Tdap) 11/07/2026 11/07/2016, 12/13/2008, 02/15/1999 Mammogram 06/08/2027 06/08/2025, 05/16, 06/01/2023, Additional history exists Cervical Cancer Screening Discontinued HPV/Cotest Discontinued 12/07/2018 Pneumococcal Vaccine: 50+ Years Completed 08/18/2022 Zoster Vaccines Completed 03/10/2023, 09/23/2022 Hepatitis C Screening Completed 03/07/2024 RSV Patients and Patients Aged 60 years or older Completed 12/30/2024 HIB Vaccines Aged Out No [...] patient's age to complete this topic Meningococcal Vaccine Aged Out No maryjo niharika eligible based on patient's age to complete this topic Pap Smear Discontinued RSV under 20 months Aged Out No longe r eligible based on patient's age to complete this topic Rotavirus Vaccines Aged Out No longer eligible based on patient's age to complete this topic Goals Goal Patient Goal Type Associated Problems [...] task Care Plan Weekly blood pressure task No Archana Pollard LPN Patient has chronic kidney disease Care Plan Patient has chronic kidney disease No Archana Pollard LPN Procedures Procedure Name Priority Date/Time Associated Diagnosis Comments ALBUMIN, RANDOM URINE W/CREATININE Routine 07/06/2025 10:30 AM EDT Type 2 diabetes mellitus without complication, with long-term current use of insulin ([facility]) Stage 3a chronic kidney disease ([facility]) POCT GLYCATED HEMOGLOBIN, TOTAL Routine 07/06/2025 9:21 AM EDT Type 2 diabetes mellitus without complication, with long-term current use of insulin ([facility]) HM DIABETES EYE EXAM Routine 06/21/2025 9:14 AM EDT BI MAMMOGRAM SCREENING TOMOSYNTHESIS BILATERAL Routine 06/08/2025 8:15 AM EDT LIPID PANEL, STANDARD Routine 12/07/2024 10:11 AM EST Pure hypercholesterolemia HEPATITIS C ANTIBODY Routine 03/07/2024 9:40 AM EDT Essential hypertension Type 2 diabetes mellitus without complication, with long-term current use of insulin ([facility]) Severe obesity ([facility]) Pure hypercholesterolemia ZZZ HISTORICAL HPV MRNA E6/E7 Routine 12/07/2018 9:15 AM EST from Last 3 Months or Most Recently Relevant to Health Maintenance Results * Albumin, Random Urine W/Creatinine (07/06/2025 10:30 AM EDT) Creatinine, Urine 86.80 mg/dL [facility] Microalbumin Urine 10.0 mg/L [facility] Microalbum Creatinine Ratio Ur 11.5 <30 ug/mg cr [facility] Comment:Albumin/Creatinine R atio Reference Ranges: Normal: < 30 ug/mg creatinine Microalbuminuria: 30 - 300 ug/mg creatinineClinical Albuminuria: > 300 ug/mg creatinine Urine (Urine, Random) 07/06/2025 10:30 AM EDT 07/06/2025 2:27 PM EDT us Vikash Isabel MD LAB URINE ORDERABLES Final Result [facility] [address] [place] [address] [phone] * (ABNORMAL) POCT A1c (07/06/2025 9:21 AM EDT) Hemoglobin A1C 5.9(A) 4.0 - 5.7 % QC Media Lot # Comment:[id number] Lot# Expiration Date Comment:02/20/2027 Blood 07/06/2025 9:21 AM EDT us Vikash Isabel MD POINT OF CARE TEST ENTER/ED IT ORDERABLES Final Result * Hm Diabetes Eye Exam (06/21/2025 9:14 AM EDT) us Historical Provider MD HEALTH MAINTENANCE Final Result * BI Mammogram Screening Tomosynthesis Bilateral (06/08/2025 8:15 AM EDT) Anatomical Region Laterality Modality Breast Bilateral Mammography 06/08/2025 8:15 AM EDT Narrative 06/13/2025 2:49 PM EDT [facility] [address] [place], [place] [address] Mammography Report Signed Patient: Yessy Miller MR#: [id number] : 1960 Acct:[id number] Age/Sex: 65 / F ADM Date: 06/08/25 Loc: HO.MAMMO Attending Dr: Vikash Isabel MD Ordering Physician: Vikash Isabel MD Results: 1 Negative Date of Service: 06/08/25 Follow Up: 1 Year From Orig ina Mammogram Procedure(s): MM tomosynthesis screening BI Accession Number(s): [id number] cc: Vikash Isabel MD EXAMINATION: MM SCREENING DIGITAL BREAST TOMOSYNTHESIS, BILATERAL CLINICAL INFORMATION: Screening. Asymptomatic. COMPARISON: Mammography: Comparison is made with available priors TECHNIQUE: Digital breast mammography with tomosynthesis is performed in both the craniocaudal and mediolateral oblique views along with computer-aided detection (CAD). FINDINGS: The breasts are almost entirely fatty (ACR BI-RADS breast composition Category a). There are no significant masses, abnormal calcifications, or other abnormalities. MM/MM tomosynthesis screening BI IMPRESSION: No mammographic evidence of malignancy. ASSESSMENT: BI-RADS BI-RADS 1 - Negative RECOMMENDATION: Routine annual mammography screening. 1 year F/U This examination should not preclude the clinical evaluation of a suspicious palpable abnormality. This patient's information was entered into a reminder system with a target due date for their next mammogram. Electronically signed by: Subha Ann DO 06/13/2025 02:46 PM EDT Dictated By: Subha Ann DO Signed By: <Electronically signed by Subha Ann DO in OV> 06/13/25 1446 DD/ 0815 TD/TT: 06/08/25 0843 Property Damage Claims Adjustor: Procedure Note Donotuseinterpreter, Image - 06/13/2025 [facility] [address] [place] [address] Mammography Report Signed Patient: Yessy Miller LMR#: [id number] : 9Acct:[id number] Age/Sex: 65 / FADM Date: 06/08/25 Loc: HO.MAMMO Attending Dr: Vikash Isabel MD Ordering Physician: Vikash Isabel MDResults: 1 Negative Date of Service: 06/08/25Follow Up: 1 Year From Orig inal Mammogram Procedure(s): MM tomosynthesis screening BI Accession Number(s): [id number] cc: Vikash Isabel MD EXAMINATION: MM SCREENING DIGITAL BREAST TOMOSYNTHESIS, BILATERAL CLINICAL INFORMATION: Screening. Asymptomatic. COMPARISON: Mammography: Comparison is made with available priors TECHNIQUE: Digital breast mammography with tomosynthesis is performed in both the craniocaudal and mediolateral oblique views along with computer-aided detection (CAD). FINDINGS: The breasts are almost entirely fatty (ACR BI-RADS breast composition Category a). There are no significant masses, abnormal calcifications, or other abnormalities. MM/MM tomosynthesis screening BI IMPRESSION: No mammographic evidence of malignancy. ASSESSMENT: BI-RADS BI-RADS 1 - Negative RECOMMENDATION: Routine annual mammography screening. 1 year F/U This examination should not preclude the clinical evaluation of a suspicious palpable abnormality. This patient's information was entered into a reminder system with a target due date for their next mammogram. Electronically signed by: Subha Ann DO 06/13/2025 02:46 PM EDT Dictated By: Subha Ann DO Signed By: <Electronically signed by Subha Ann DO in OV> 06/13/25 1446 DD/ 0815 TD/TT: 06/08/25 0843 Property Damage Claims Adjustor: us Vikash Isabel MD IMG BI PROCEDURES Final Res ult * (ABNORMAL) Lipid Panel, Standard (12/07/2024 10:11 AM EST) Triglycerides 125 <150 mg/dL [facility] Comment:Desirable Triglyceri de: less than 150 mg/dLBorderline High Triglyceride 150-199 mg/dLHigh Triglyceride: 200-499 mg/dLVery High Triglyceride: greater than or equal to 5OO mg/dL Cholesterol 132 <200 mg/dL [facility] Comment:Desirable Cholestero l: less than 200 mg/dLBorderline High Cholesterol: 200-239 mg/dLHigh Cholesterol: greater than 239 mg/dL LDL Cholesterol Calculated 67 <100 mg/dL [facility] Comment:Desirable LDL: less than 100 mg/dLNear Optimal/Above Optimal LDL: 110- 129 mg/dLBorderline High LDL: 130-159 mg/dLHigh LDL: 160-189 mg/dLVery High LDL: greater than or equal to 190 mg/dL HDL Cholesterol 40(L) >40 mg/dL [facility] Comment:Desirable HDL: great er than 40 mg/dL Note: This HDL assay may give artificially low results in patients with liver disease. Blood Venous blood specimen / Unknown 12/07/2024 10:11 AM EST 12/07/2024 2:07 PM EST us Vikash Isabel MD LAB BLOOD ORDERABLES Final Result Performing Organization Address [facility] Co de Phone Number [facility] [address] [place] [phone] * Hepatitis C Ab (03/07/2024 9:40 AM EDT) Hepatitis C Antibody Nonreactive Nonreactive [facility] Comment:Antibodies to HCV no t detected; does not exclude early acuteHCV infection. Blood Venous blood specimen / Unknown 03/07/2024 9:40 AM EDT 03/07/2024 2:45 PM EDT Vikash Isabel MD LAB BLOOD ORDERABLES Final Result Performing Organization Address City/[facility]/ZIP Co de Phone Number [facility] [address] [place] [phone] * HPV mRNA E6/E7 (12/07/2018 9:15 AM EST) HPV mRNA E6/E7 Not Detected NOT DETECTED [facility] Comment: This test was performed using the APTIMA(R) HPV Assay ([employer] This assay detects E6/E7 viral messenger RNA (mRNA) from 14 high-risk HPV types (16,18,31,33,35,39,45,51, 52,56,58,59,66,68). For additional information please refer to: http://education.Tokutek/faq/KAG567g2 (This link is being provided for informational/ educational purposes only.) The analytical performance characteristics of this assay have been determined by [employer] [place], [place]. The modifications have not been cleared or approved by the FDA. This assay has been validated pursuant to the CLIA regulations and is used for clinical purposes. Test Performed by [facility], [address] [place] [address] Reid Celestin M.D., Ph.D., Director of Laboratories , CLIA [id number] Please note: Effective 07/28/2016, HPV testing will be performed using [employer]'s APTIMA test which targets mRNA. Detecting mRNA instead of DNA, as in older methods, offers significant improvements in specificity. 12/07/2018 9:15 AM EST us Sahra Begum CNM HISTORICAL/NON ORDERABLE LABS Final Result [facility] [address] from Last 3 Months or Most Recently Relevant to Health Maintenance Additional Health Concerns Active Problems Noted Date Diagnosed Date Help patients manage their type 2 diabetes 10/23 Weekly blood pressure task 10/23/2025 Help patients manage their type 2 diabetes 10/23 Patient has chronic kidney disease 10/23/2025 Weekly blood pressure task 10/23/2025 Patient has chronic kidney disease 10/23/2025 [facility]-SNP[facility] [place]ON[place] ADAM [id number] Care Teams Web Content Executive Relationship Specialty Start Date End Date Vikash Isabel MD [address] [place] [address] [place] [address] PCP - General Internal Medicine 11/16/18
--- OUTSIDE RECORDS SUMMARY | 2025-10-31 07:43 | XMS_ITS | Encounter Summary ---
Author Organization [employer] Address [address] [place] [address] Care Team Providers Care Fireproof Door Maker Name Role Phone Vikash Isabel MD Primary Care Provider +1- [phone] Reason for Visit * Reason Comments Med Refill Encounter Details Date Type Department Care Team ([facility] st Contact Info) Description 04/22/2025 Refill [facility] [address] [place], [place] [phone] Vikash Isabel MD [address] [place] [address] Pure hypercholesterolemia; Vitamin deficiency Social History Tobacco Use Types [...] as of this encounter Visit Diagnoses Diagnosis Pure hypercholesterolemia Vitamin deficiency Unspecified vitamin deficiency documented in this encounter Additional Health Concerns Assessment Noted Time PHQ-9 Depression Total Score: 0 12/07/19 25 9:41 AM EST documented as of this encounter Care Teams Fireproof Door Maker Relationship Specialty Start Date End Date Vikash Isabel MD [address] [place] [phone] PCP - General Internal Medicine 11/16/18 documented as of this encounter
--- OUTSIDE RECORDS SUMMARY | 2025-10-31 07:43 | XMS_ITS | Encounter Summary ---
Author Organization [employer] Address [address] [place] [address] 7 [place] [address] Care Team Providers Care Bar And Filler Assembler Name Role Phone Vikash Isabel MD Primary Care Provider +1- [phone] Encounter Details Date Type Department Care Team ([facility] Contact Info) Description 12/08/2024 Orders Only [facility] [address] [place], [place] [phone] Vikash Isabel MD [address] [place] [address] Stage 3a chronic kidney disease (CMS/HCC) (Primary Dx); Hypercalcemia Social History Tobacco Use Types Packs/Day Years [...] as of this encounter Plan of Treatment Scheduled Orders Name Type Priority Associated Diagnoses Orde r Schedule PTH, Intact And Calcium Lab Routine Hypercalcemia Expected: 12/08/2024 (Approximate), Expires: 12/08/2025 documented as of this encounter Visit Diagnoses Diagnosis Stage 3a chronic kidney disease (CMS/HCC) (HCC)- Primary Hypercalcemia documented in this encounter Additional Health Concerns Assessment Noted Time PHQ-9 Depression Total Score: 0 12/07/19 25 9:41 AM EST documented as of this encounter Care Teams Bar And Filler Assembler Relationship Specialty Start Date End Date Vikash Isabel MD [address] [place] [phone] PCP - General Internal Medicine 11/16/18 documented as of this encounter
--- OUTSIDE RECORDS SUMMARY | 2025-10-31 07:43 | XMS_ITS | Encounter Summary ---
Author Organization [employer] Address [address] [facility] 7 [place] [address] Care Team Providers Care Fourdrinier Machine Tender Name Role Phone Vikash Isabel MD Primary Care Provider +1- [phone] Encounter Details Date Type Department Care Team (Late st Contact Info) Description 06/22/2025 Orders Only [facility] [address] [place] [address] ProviderGo MD Social History Tobacco Use Types Packs/Day Years [...] is your housing situation today? I have ivral griffin 05/31/[address] you [...] on file documented as of this encounter Procedures Procedure Name Priority Date/Time Associated Diagnosis Comments DIABETES EYE EXAM Routine 06/21/2025 9:14 AM EDT documented in this encounter Results * Hm Diabetes Eye Exam (06/21/2025 9:14 AM EDT) Historical Provider HEALTH MAINTENANCE Final Result documented in this encounter Visit Diagnoses Not on filedocumented in this encounter Additional Health Concerns Assessment Noted Time PHQ-9 Depression Total Score: 0 12/07/19 25 9:41 AM EST documented as of this encounter Care Teams Fourdrinier Machine Tender Relationship Specialty Start Date End Date Vikash Isabel MD [address] [place] [phone] PCP - General Internal Medicine 11/16/18 documented as of this encounter
--- OUTSIDE RECORDS SUMMARY | 2025-10-31 07:43 | XMS_ITS | Encounter Summary ---
Author Organization [employer] Address [address] [place] [address] Care Team Providers Care Turkey Roll Maker Name Role Phone Vikash Isabel MD Primary Care Provider +1- [phone] Encounter Details Date Type Department Care Team ([facility] Contact Info) Description 01/09/2023 Orders Only [facility] [address] [place] [address] Archana Pollard LPN Social History Tobacco Use [...] on filedocumented in this encounter Care Teams Turkey Roll Maker Relationship Specialty Start Date End Date Vikash Isabel MD [address] [place] [address] PCP - General Internal Medicine 11/16/18 documented as of this encounter
--- OUTSIDE RECORDS SUMMARY | 2025-10-31 07:43 | XMS_ITS | Encounter Summary ---
Author Organization [employer] Address [address] [place] [address] Care Team Providers Care X Ray Inspector Name Role Phone Vikash Isabel MD Primary Care Provider [phone] Reason for Visit * Reason Comments Med Refill Encounter Details Date Type Department Care Team ([facility] st Contact Info) Description 03/29/2025 Refill [facility] MED & PEDS [address] [place], [place] [phone] Vikash Isabel MD [address] [place], [place] [phone] Type 2 diabetes mellitus with both eyes affected by mild nonproliferative retinopathy and macular edema, with long-term current use of insulin ([facility]) Social History Tobacco Use Types Packs/Day Years [...] Visit Diagnoses Diagnosis Type 2 diabetes mellitus with both eyes affected by mild nonproliferative retinopathy and macular edema, with long-term current use of insulin (HCC) documented in this encounter Additional Health Concerns Assessment Noted Time PHQ-9 Depression Total Score: 0 12/07/19 25 9:41 AM EST documented as of this encounter Care Teams X Ray Inspector Relationship Specialty Start Date End Date Vikash Isabel MD [address] [place] [id number] PCP - General Internal Medicine 11/16/18 documented as of this encounter
--- OUTSIDE RECORDS SUMMARY | 2025-10-31 07:43 | XMS_ITS | Encounter Summary ---
Author Organization [employer] Address [address] [place] [id number] Care Team Providers Care Facility Sales And Admin Name Role Phone Vikash Isabel MD Primary Care Provider [phone] Reason for Referral * Consultation (Routine) - Closed Specialty Diagnoses / Procedures Referred By Contac t Referred To Contact Orthopaedic Surgery Diagnoses Arthritis of right acromioclavicular joint Vikash Isabel MD [address] [place] [address] Phone: tel: fax: [facility] Orthopedics [address] [place] [address] Dr [address] [place] [address] Phone: tel:[phone] Referral ID Status Reason Start Date Expiration Date V isits Requested Visits Authorized [id number] Closed Specialty Services Required 07/24/2025 07/24/2026 1 1 Encounter Details Date Type Department Care Team (Latest Contact Info) Description 07/24/2025 Orders Only [facility] MED & PEDS [address] [place], [place] [phone] Vikash Isabel MD [address] [place], [place] [phone] Arthritis of right acromioclavicular joint (Primary Dx) Social History Tobacco Use Types [...] of this encounter Plan of Treatment Scheduled Referrals Name Type Priority Associated Diagnoses Orde r Schedule Referral to Orthopaedic Surgery Outpatient Referral Routine Arthritis of right acromioclavicular joint Expected: 07/24/2025 (Approximate), Expires: 07/24/2026 documented as of this encounter Visit Diagnoses Diagnosis Arthritis of right acromioclavicular joint- Primary documented in this encounter Additional Health Concerns Assessment Noted Time PHQ-9 Depression Total Score: 0 12/07/19 25 9:41 AM EST documented as of this encounter Care Teams Facility Sales And Admin Relationship Specialty Start Date End Date Vikash Isabel MD [address] [place] [id number] PCP - General Internal Medicine 11/16/18 documented as of this encounter
--- OUTSIDE RECORDS SUMMARY | 2025-10-31 07:43 | XMS_ITS | Clinical Summary ---
Author Organization [address] [facility] Address [address] [place] [address] Phone Care Team Providers Care Cutter In Name Role Phone Vikash Isabel MD Primary Care Provider [phone] Allergies Active Allergy Reactions Criticality Noted Date [...] mg EC tablet 1 PO QD 04/24/2010 Act amy CHOLECALCIFEROL , VITAMIN D3, ORAL Take 1,000 Units by mouth daily. Active lisinopril-hydr oCHLOROthiazide (PRINZIDE,ZESTO RETIC) 20-12.5 mg per tablet 1 qd 04/24/2010 Activ e simvastatin (ZOCOR) 10 mg tablet 1 TABLET AT BEDTIME 04/24/2010 Active metoprolol succinate (TOPROL-XL) 100 mg 24 hr tablet 1 TABLET DAILY 04/24/2010 Active aspirin 81 mg EC tablet 1 TABLET DAILY Active Active Problems Problem Noted Date Diagnosed Date Type 2 diabetes mellitus with cataract 4 Class 3 severe obesity with serious comorbidity and body mass index (BMI) of 45.0 to 49.9 in adult 08/18/2024 Primary hyperparathyroidism 11/27/2021 Acute nontraumatic kidney injury 11/27/2021 Cataract 05/10/2021 Severe obesity (BMI >= 40) 03/05/2021 Stage 3a chronic kidney disease 01/13/2020 Type 2 diabetes mellitus 09/21/2018 Esophageal reflux 04/13/2007 Pure hypercholesterolemia 01/28/2007 Renal artery stenosis 04/25/2006 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 Overview (08/18/2024): right, total vision loss negative echo, normal carotid usn, negative for clotting abnormality Displacement of lumbar inter 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 11/06/2005 Overview (08/18/2024): laminectomy Sciatica 11/06/2005 Pyelonephritis 06/29/2004 Overview (08/18/2024): severe, left, sepsis and renal tubular acidosis 06/19 subsequent kidney atrophy Pneumonia 06/19/2004 Hypertension 02/12/2001 Immunizations Immunization Administration Dates Next Due Td Tetanus diptheria (Tdvax) 7yo and older 02/15 Tdap Tetanus diptheria acell ular pertussis (Boostrix; Adacel) 7yo and older 12/13/2008 Surgical History Surgery Date Site/Laterality Comments OTHER SURGICAL HISTORY 01/11/1999 PROCEDURE: [place] HENDRICK[facility] FACETECTOMY & FORAMOTOMY 1 VRT SGM LUMBAR; COMMENT: laminectomy L5-S1 OTHER SURGICAL HISTORY 10/16/2009 PROCEDURE: MAMMOGRAM COLONOSCOPY 05/16/2009 PROCEDURE: [place] COLONOSCOPY STOMA DX INCLUDING COLLJ SPEC SPX; [...] obesity with BMI of 5 0.0-59.9, adult ([facility] V24, [facility] V28) 05/10/2021 DX:Morbid obesity wit h BMI of 50.0-59.9, adult ([facility]) Type 2 diabetes mellitus wit h cataract ([facility] V24, [facility] V28) DX:Type 2 diabetes mellitus with cataract ([facility]) Cataract 05/10/2021 DX:Cataract Family History Medical History [...] Care Team (Late st Contact Info) Description 12/11/2025 10:00 AM EST Nutrition Bariatric [facility] [address] [address] Kaylyn Kruse, RD [address] [address] 12/12/2025 9:00 AM EST Office Visit B[facility] - [facility] [address] [address] Sugey Hughes MD [address] [place] [address] Health Maintenance Due Date Last Done Comments Breast Cancer Screening 1959 Colorectal Cancer Screening: Colonoscopy 1959 Diabetes: Annual Foot Exam 1969 Diabetes: Annual Retina Eye Exam 1969 Hepatitis C Screening 10/25/2022 Medicare Annual Wellness [...] Results * Annual BMP Blood Test (03/31/2022) Annual BMP Blood Test Abstracted Historical Provider HEALTH MAINTENANCE Final Result * Hemoglobin A1c (07/02/2020) Hemoglobin A1C 6.3 <=6.5 % Blood Venous blood specimen / Unknown us Historical Provider LAB BLOOD ORDERABLES Alvina l Result * Lipid panel (07/02/2020) LDL/HDL Ratio 3 0 - 4 Triglycerides 148 0 - 150 mg/dL Cholesterol 134 0 - 200 mg/dL HDL 41 >=40 mg/dL LDL Cholesterol 64 0 - 100 mg/dL Blood Venous blood specimen / Unknown Result [facility] Historical Provider LAB BLOOD ORDERABLES Alvina l Result * HM Urine Albumin Creatinine Ratio (12/13/2008) Urine Albumin Creatinine Ratio Abstracted Result [facility] Historical Provider HEALTH MAINTENANCE Final Result from Last 3 Months or Most Recently Relevant to Health Maintenance Insurance [facility] MEDICARE Member Subscriber Plan / Payer (Ef fective 2024-Present) Name:YESSY MILLER Relation to Subscriber:Self Name:Yessy Miller Payer ID:[id number] Group ID:[id number] Type:Not on file Address: [place] [address] [address] [address] Care Teams Cutter In Relationship Specialty Start Date End Date Vikash Isabel MD [address] [facility] [place], [place] PCP - General Internal Medicine 07/30/21
== END 2025-10-31 07:40 | disposition home or self-care (01) ==
LOC: HO.MRI 07:39
PROVIDERS: Visit Provider Orthopaedic Surgery
DX: M25.311 Other instability, right shoulder (principal)
CPT/HCPCS: 73221

== ENCOUNTER → 2025-10-31 07:42 | Outpatient (BNV) | payer OTHER, SELFPAY | PROVIDERS: Visit Provider Radiology Diagnostic Ultrasound | DX: M75.121 Complete rotator cuff tear or rupture of right shoulder, not specified as traumatic (principal); M25.311 Other instability, right shoulder; M19.011 Primary osteoarthritis, right shoulder; M25.411 Effusion, right shoulder; M75.31 Calcific tendinitis of right shoulder | CPT/HCPCS: 73221 ==